=== PATIENT | female | born 1955 | race Caucasian/White ===

== ENCOUNTER → 2016-08-11 | Outpatient (CLI) | payer OTHER ==
[~2016-08-11] MED LIST: ALBU17AE23 IH; ALBU8.5H2 IH; ARIP5TAB13 PO; BUDE6HFA IH; CEFD300C PO; CEFD300C3 PO; CRS350T PO; DIAZ-345 PO; DIAZ10TA3 PO; DIAZ5TAB3 PO; DULO30CA48 PO; DULO60CA6 PO; FLUT1DIS26 INH; FOLI-88 PO; FURO40TA PO; FURO40TA4 PO; GABA-486 PO; HYDR-2890 PO; HYDR-3720 PO; HYDR1TAB86 PO; LEVA1.2516 INH; MELO-195 PO; MELOXICAM PO; MTH10T PO; NCT21TD; OXYGEN INH; POTA20TA15 PO; PRD10T PO; PRED10TA PO; TIOT18CA IH; TIOT18CA2 INH
== END ==
LOC: RAD 14:04
PROVIDERS: ATTEND Nurse Practitioner Family
DX: I73.9 Peripheral vascular disease, unspecified (principal)
CPT/HCPCS: 93923

== ENCOUNTER 2016-10-24 05:19 | Inpatient (IN) | payer OTHER ==
[~2016-10-24] VITALS: Ht 172.7 cm; Wt 81.9 kg
[2016-10-24 05:52] LABS: BASOPHILS % (AUTO) 0 % (0-10); EOSINOPHILS # (AUTO) 0.1 10^3/uL (0.0-0.3); EOSINOPHILS % (AUTO) 1 % (0-10); LYMPHOCYTES # (AUTO) 1.3 X 10^3 (1.0-4.0); LYMPHOCYTES % (AUTO) 11 % (12-44); MEAN CORPUSCULAR HEMOGLOBIN 31 PG (25-34); MEAN CORPUSCULAR HGB CONC 31 G/DL (32-36); MEAN CORPUSCULAR VOLUME 98 FL (80-99); MEAN PLATELET VOLUME 11.4 FL (7.4-10.4); MONOCYTES # (AUTO) 0.9 X 10^3 (0.0-1.0); MONOCYTES % (AUTO) 8 % (0-12); NEUTROPHILS # (AUTO) 9.9 X 10^3 (1.8-7.8); NEUTROPHILS % (AUTO) 81 % (42-75); PLATELET COUNT 138 10^3/uL (130-400); RED BLOOD COUNT 4.67 10^6/uL (4.35-5.85); RED CELL DISTRIBUTION WIDTH 13.5 % (10.0-14.5); WHITE BLOOD COUNT 12.3 10^3/uL (4.3-11.0)
--- NOTE | 2016-10-24 05:56 | ED Fall/Injury ---
General Chief Complaint: Trauma-Non Activation Stated Complaint: BACK PAIN-FALL Nursing Triage Note: patient reports fall on wednesday reports pain in lower back has progressively gotten worse Source: patient, family (spouse) Exam Limitations: no limitations History of Present Illness Time seen by provider: 05:50 Initial Comments Patient came in to the ER by private conveyance with her with a complaint of falling from standing after tripping on some one-stop blankets of the foot of her recliner when she was getting out of the chair. This occurred Wednesday approximately 3 days ago. She fell onto outstretched hands and at that time started having some left lower back pain that is not gone away. She's not presently taking anything for it. She does have COPD and is on an O2 concentrator at 4 L at home. She sees pulmonology. She is out of nebulized medicines and has 3 different MDIs which she states all her and she does not use. She feels short of breath but states this is been her baseline for a long time. She has no cough presently. She denies fevers, chills, nausea, vomiting, loss of continence of stool and bladder, saddle anesthesia, paresthesias, weakness, numbness, tingling. Allergies and Home Medications Allergies Coded Allergies: morphine (Unverified Allergy, Unknown, 01/23/16) Home Medications Albuterol Sulfate 8.5 Gm Aer.w.adap, 2 PUFF IH QID PRN for SHORTNESS OF BREATH, (Reported) Aripiprazole 5 Mg Tablet, 5 MG PO DAILY, (Reported) Diazepam 5 Mg Tablet, 10 MG PO Q6H PRN for ANXIETY, (Reported) Duloxetine HCl 30 Mg Capsule.dr, 30 MG PO DAILY, (Reported) Duloxetine Hcl 60 Mg Capsule.dr, 60 MG PO DAILY, (Reported) Folic Acid/Multivits-Min/Lut 1 Each Tab.chew, 1 TAB PO DAILY, (Reported) Furosemide 40 Mg Tablet, 40 MG PO DAILY, (Reported) Gabapentin 100 Mg Capsule, 100 MG PO DAILY, (Reported) Hydrocodone Bit/Acetaminophen 1 Each Tablet, 1 TAB PO Q4H PRN for PAIN, ( Reported) Meloxicam 15 Mg Tablet, 15 MG PO DAILY, (Reported) Potassium Chloride 20 Meq Tab.prt.sr, 40 MEQ PO DAILY, (Reported) TAKES 2 (20MEQ) TABLETS Tiotropium [place] 1 Inh Aerp, 1 PUFF INH DAILY, (Reported) Constitutional: No chills, No diaphoresis, No fever Ears, Nose, Mouth, Throat: denies nose pain, denies nose discharge Respiratory: cough, dyspnea on exertion, No hemoptysis, No orthopnea, No phlegm , short of breath, wheezing (at baseline) Cardiovascular: No edema, No Hx of Intervention, No palpitations, No syncope, No vascular heart diseas Gastrointestinal: abdominal pain, No constipation, No diarrhea, No nausea Genitourinary: No dysuria, No frequency Musculoskeletal: see HPI, back pain Past Izduzxx-Devfcs-Mrnmrz Hx Patient Social History Alcohol Use: Denies Use Recreational Drug Use: No Smoking Status: Current Everyday Smoker Type Used: Cigarettes Recent Foreign Travel: No Contact w/Someone Who Travel: No Recent Infectious Disease Expo: No Recent Hopitalizations: No Immunizations Up To Date Date of Pneumonia Vaccine: Dec 16, 2011 Date of Influenza Vaccine: Feb 14, 2013 Seasonal Allergies Seasonal Allergies: No Surgeries HX Surgeries: Yes (C-SPINE SURGERY 2006, BACK SURGERY, RIGHT ANKLE SURGERY) Surgeries: Orthopedic Respiratory Hx Respiratory Disorders: Yes Respiratory Disorders: Pneumonia, Chronic Bronchitis, COPD Cardiovascular Hx Cardiac Disorders: No Neurological Hx Neurological Disorders: No Reproductive System Hx Reproductive Disorders: No [employer] History: Menopausal Genitourinary Hx Genitourinary Disorders: No Gastrointestinal Hx Gastrointestinal Disorders: No Musculoskeletal Hx Musculoskeletal Disorders: Yes (CHRONIC NECK PAIN AND RIGHT HIP PAIN ) Musculoskeletal Disorders: Chronic Back Pain Endocrine Hx Endocrine Disorders: No HEENT HX ENT Disorders: No Cancer Hx Cancer: No Psychosocial Hx Psychiatric Problems: Yes Behavioral Health Disorders: Anxiety Integumentary HX Skin/Integumentary Disorder: No Blood Transfusions Hx Blood Disorders: No Adverse Reaction to a Blood Tr: No Family Medical History Family Medial History: Breas 19 MOTHER Congenital heart disease 19 FATHER 19 MOTHER Hypertension 19 FATHER 19 MOTHER Myocardial infarction 19 MOTHER Prostate cancer 19 FATHER Physical Exam Vital Signs Vital Sign - Last 12Hours 10/24/16 05:35 Temp 97.9 Pulse 97 Resp 26 B/P (MAP) 150/84 Pulse Ox 63 O2 Delivery Room Air O2 Flow Rate 5.00 Capillary Refill : Less Than 3 Seconds General Appearance: WD/WN, no apparent distress HEENT: PERRL/EOMI, normal ENT inspection, pharynx normal Neck: supple, normal inspection Cardiovascular: normal peripheral pulses, regular rate, rhythm, no edema, no JVD Respiratory: chest non-tender, no respiratory distress, no accessory muscle use , decreased breath sounds, wheezing (prolonged expiratory.) Peripheral Pulses: 3+ Dorsalis Pedis (R), 3+ Left Dors-Pedis (L) Gastrointestinal: normal bowel sounds, soft, no organomegaly, distended (mildly ), tenderness (diffusely) Back: normal inspection, other (midline lumbar tenderness as well as left paraspinous lumbar muscles) Extremities: normal range of motion, non-tender, normal inspection, no pedal edema, no calf tenderness Neurologic/Psychiatric: alert, oriented x 3 Skin: normal color, warm/dry Laceration Repair : Suture Size: 5-0 Progress/Results/Core Measures Results/Orders Lab Results Laboratory Tests Test 10/24/16 05:40 10/24/16 07:40 10/24/16 08:49 Range/Units White Blood Count 12.3 H 4.3-11.0 10^3/uL Red Blood Count 4.67 4.35-5.85 10^6/uL Hemoglobin 14.3 11.5-16.0 G/DL Hematocrit 46 35-52 % Mean Corpuscular Volume 98 80-99 FL Mean Corpuscular Hemoglobin 31 25-34 PG Mean Corpuscular Hemoglobin Concent 31 L 32-36 G/DL Red Cell Distribution Width 13.5 10.0-14.5 % Platelet Count 138 130-400 10^3/uL Mean Platelet Volume 11.4 H 7.4-10.4 FL Neutrophils (%) (Auto) 81 H 42-75 % Lymphocytes (%) (Auto) 11 L 12-44 % Monocytes (%) (Auto) 8 0-12 % Eosinophils (%) (Auto) 1 0-10 % Basophils (%) (Auto) 0 0-10 % Neutrophils # (Auto) 9.9 H 1.8-7.8 X 10^3 Lymphocytes # (Auto) 1.3 1.0-4.0 X 10^3 Monocytes # (Auto) 0.9 0.0-1.0 X 10^3 Eosinophils # (Auto) 0.1 0.0-0.3 10^3/uL Basophils # (Auto) 0.0 0.0-0.1 10^3/uL Sodium Level 142 135-145 MMOL/L Potassium Level 4.3 3.6-5.0 MMOL/L Chloride Level 97 L 98-107 MMOL/L Carbon Dioxide Level 34 H 21-32 MMOL/L Anion Gap 11 5-14 MMOL/L Blood Urea Nitrogen 15 7-18 MG/DL Creatinine 0.63 0.60-1.30 MG/DL Estimat Glomerular Filtration Rate > 60 BUN/Creatinine Ratio 24 Glucose Level 128 H 70-105 MG/DL Calcium Level 10.1 8.5-10.1 MG/DL Magnesium Level 2.0 1.8-2.4 MG/DL Total Bilirubin 0.5 0.1-1.0 MG/DL Aspartate Amino Transf (AST/SGOT) 17 5-34 U/L Alanine Aminotransferase (ALT/SGPT) 19 0-55 U/L Alkaline Phosphatase 71 40-136 U/L Troponin I < 0.30 <0.30 NG/ML C-Reactive Protein High Sensitivity 15.38 H 0.00-0.50 MG/DL B-Type Natriuretic Peptide 84.1 <100.0 PG/ML Total Protein 7.4 6.4-8.2 G/DL Albumin 4.6 H 3.2-4.5 G/DL Prothrombin Time 12.5 12.2-14.7 SEC INR Comment 1.0 0.8-1.4 Activated Partial Thromboplast Time 29 24-35 SEC Lactic Acid Level 0.92 0.50-2.00 MMOL/L Urine Color YELLOW Urine Clarity CLEAR Urine pH 6 5-9 Urine Specific [place] 1.020 1.016-1.022 Urine Protein 2+ H NEGATIVE Urine Glucose (UA) NEGATIVE NEGATIVE Urine Ketones 3+ H NEGATIVE Urine Nitrite NEGATIVE NEGATIVE Urine Bilirubin NEGATIVE NEGATIVE Urine Urobilinogen 1 NORMAL MG/DL Urine Leukocyte Esterase 2+ H NEGATIVE Urine RBC (Auto) 1+ H NEGATIVE Urine RBC 2-5 H /HPF Urine WBC 5-10 H /HPF Urine Squamous Epithelial Cells 5-10 /HPF Urine Crystals NONE /LPF Urine Bacteria FEW H /HPF Urine Casts NONE /LPF Urine Mucus SMALL H /LPF Urine Culture Indicated YES My Orders Orders - HELEN BONDS Lumbar Spine - 2-3 Views (10/24/16 05:57) Lactic Acid Analyzer (10/24/16 06:59) Blood Culture (10/24/16 06:59) Sputum Culture (10/24/16 06:59) Ua Culture If Indicated (10/24/16 06:59) Protime With Inr (10/24/16 06:59) Partial Thromboplastin Time (10/24/16 06:59) Saline Lock/Iv-Start (10/24/16 06:59) Vital Signs Adult Sepsis Patie Q1HR (10/24/16 06:59) Remove Rings In Anticipation O (10/24/16 06:59) Ceftriaxone Injection (Rocephin Injectio (10/24/16 07:15) Ns Iv 1000 Ml (Sodium Chloride 0.9%) (10/24/16 07:15) Albuterol/Ipra Inhalation Soln (Duoneb I (10/24/16 07:15) Svn Sm Volume Nebulizer Rt-Rfs (10/24/16 07:08) Fentanyl Injection (Sublimaze Injection (10/24/16 08:00) Fentanyl Injection (Sublimaze Injection (10/24/16 07:54) Fentanyl Injection (Sublimaze Injection (10/24/16 09:15) Urine Culture (10/24/16 08:49) Medications Given in ED Current Medications Medications Dose Ordered Sig/Denise Route Start Time Stop Time Status Last Admin Dose Admin Albuterol/ Ipratropium 3 ml ONCE ONCE INH 10/24/16 06:00 10/24/16 06:01 DC 10/24/16 05:55 3 ML Albuterol/ Ipratropium 3 ml ONCE ONCE INH 10/24/16 07:15 10/24/16 07:16 DC 10/24/16 07:57 3 ML Ceftriaxone Sodium 1000 mg/ Sodium Chloride 50 ml @ 100 mls/hr ONCE ONCE IV 10/24/16 07:15 10/24/16 07:44 DC 10/24/16 07:55 100 MLS/HR Fentanyl Citrate 50 mcg ONCE ONCE IVP 10/24/16 08:00 10/24/16 08:04 DC 10/24/16 07:55 50 MCG Fentanyl Citrate 50 mcg ONCE ONCE IVP 10/24/16 09:15 10/24/16 09:16 DC 10/24/16 09:39 50 MCG Methylprednisolone Sodium Succinate 125 mg ONCE ONCE IVP 10/24/16 06:00 10/24/16 06:01 DC 10/24/16 05:59 125 MG Vital Signs/I&O Vital Sign - Last 12Hours 10/24/16 10/24/16 10/24/16 10/24/16 05:35 05:35 05:55 07:58 Temp 97.9 Pulse 97 Resp 26 B/P (MAP) 150/84 Pulse Ox 63 98 96 94 O2 Delivery Room Air Room Air Nasal Cannula Nasal Cannula O2 Flow Rate 5.00 5.00 3.00 Blood Pressure Mean: 106 Progress Note : Time: 06:02 Progress Note Patient presents in what appears to fairly uncontrolled COPD stating she does not really take any of her MDI/DPI medicines and is out of her nebulized medicines. She has had a fall that may been compounded by her COPD control. We' ll obtain imaging of her back and also take a look at her lung x-ray get her a DuoNeb by small-volume nebulizer. Diagnostic Imaging Diagonstic Imaging: Xray Plain Films/CT/US/NM/MRI: chest Comments small infiltrate RLL, COPD chronic NAME: MELY MOREIRA MED REC#: [id number] PHYSICIAN: MARCIANO BLANCHARD MD CC: MARCIANO BLANCHARD MD; ALLI GIL Page 1 of 1 RADIOLOGY REPORT VIA [facility], [facility]. [place], [place] CC: MARCIANO BLANCHARD MD; ALLI GIL Page 1 of 1 RADIOLOGY REPORT NAME: MELY MOREIRA MED REC#: [id number] PT STATUS: REG ER : 1955 PHYSICIAN: MARCIANO BLANCHARD MD ADMIT DATE: 10/24/16/ER Signed Date of Exam: 10/24/16 CHEST PA/LAT (2 VIEW) INDICATION: Fall with back pain, shortness of breath. Comparison made with prior examination from 02/12/15. FINDINGS: There's cardiomegaly. Mediastinum is unremarkable. Lungs are clear. There is no pleural effusion or pneumothorax. There is some minimal bibasilar atelectasis and/or pneumonitis. IMPRESSION: Cardiomegaly and some minimal bibasilar subsegmental atelectasis and/or pneumonitis. Dictated by: Dictated on workstation # [id number] Dict: 10/24/16 0823 Trans: 10/24/16 1000 Interpreted by: ALLI GIL Electronically signed by: ALLI GIL 10/24/16 1000 Reviewed: Reviewed by Me Diagonstic Imaging: Xray Plain Films/CT/US/NM/MRI: other (lumbar spine) Comments NAME: MELY MOREIRA MED REC#: [id number] PHYSICIAN: HELEN BONDS MD CC: ALLI GIL; HELEN BONDS Page 1 of 1 RADIOLOGY REPORT VIA [place], [place] CC: ALLI GIL; HELEN BONDS Page 1 of 1 RADIOLOGY REPORT NAME: MELY MOREIRA MED REC#: [id number] PT STATUS: REG ER : 1955 PHYSICIAN: HELEN BONDS MD ADMIT DATE: 10/24/16/ER Signed Date of Exam: 10/24/16 LUMBAR SPINE - 2-3 VIEWS INDICATION: Back pain after fall. 3 views were obtained. FINDINGS: There is some right convexity degenerative lumbar scoliosis. There is moderate degenerative disc disease at L4-5. There appears to be a T11 compression fracture. While the acuity of this is uncertain this is not seen on previous imaging. IMPRESSION: T11 compression fracture. This is of uncertain acuity. If there is high clinical concern this may be acute further evaluation with MRI should be considered as this would be amenable to augmentation if clinically warranted. Degenerative changes lumbar spine particularly at L4-5 Dictated by: Dictated on workstation # [id number] Dict: 10/24/16 0829 Trans: 10/24/16 1001 Interpreted by: ALLI GIL Electronically signed by: ALLI GIL 10/24/16 1001 Reviewed: Reviewed by Me Departure Communication Time/Spoke to Admitting Phy: 10:[address] Man about the case. He recommends continue her home hydrocodone as well as fentanyl 50 g IV every 2 hours as needed for aches or pain. He'll see the patient. Pneumonia Admission Pseudomonal Risk: COPD Patient allergy/sensitivity/re: None Pneumonia order set available: CAP Non ICU Notes rocephin and Depomedrol started. Low likelyhood of MDR. Impression Impression: Primary Impression: COPD exacerbation Additional Impressions: Pneumonia Qualified Codes: J18.1 - Lobar pneumonia, unspecified organism Compression fracture of body of thoracic vertebra Fall at home Qualified Codes: W19.XXXA - Unspecified fall, initial encounter; Y92.099 - Unspecified place in other non-institutional residence as the place of occurrence of the external cause Disposition: 09 ADMITTED INPATIENT Condition: Improved Decision to Admit Reason: Admit from ER (General) Decision to Admit/Date: Oct 24, 2016 Time/Decision to Admit Time: 10:17 Departure-Patient Inst. Referrals: AUGUSTUS MAN MD (PCP/Family) Primary Care Physician Copy Copies To 1: AUGUSTUS MAN MD, TITUS J Oct 24, 2016 05:56
[2016-10-24] MEDS ORDERED: RT-ALBUTEROL/IPRATROPIUM 3 ML (DUONEB) VIAL INH ONE ×3 (06:00→18:45)
[2016-10-24] MEDS ORDERED: methylPREDNISolone 125 MG (Solu-MEDROL) VIAL IVP ONE (06:00)
[2016-10-24 06:23] LABS: ALANINE AMINOTRANSFERASE 19 U/L (0-55); ALBUMIN 4.6 G/DL (3.2-4.5); ANION GAP 11 MMOL/L (5-14); ASPARTATE AMINO TRANSFERASE 17 U/L (5-34); BILIRUBIN,TOTAL 0.5 MG/DL (0.1-1.0); BLOOD UREA NITROGEN 15 MG/DL (7-18); BUN/CREATININE RATIO 24; CALCIUM 10.1 MG/DL (8.5-10.1); CARBON DIOXIDE 34 MMOL/L (21-32); CHLORIDE 97 MMOL/L (98-107); CREATININE SERUM 0.63 MG/DL (0.60-1.30); GFR ESTIMATED > 60; GLUCOSE 128 MG/DL (70-105); POTASSIUM 4.3 MMOL/L (3.6-5.0); SODIUM 142 MMOL/L (135-145); TOTAL PROTEIN 7.4 G/DL (6.4-8.2); hs C REACTIVE PROTEIN 15.38 MG/DL (0.00-0.50)
[2016-10-24 06:35] LABS: TROPONIN I < 0.30 NG/ML (<0.30)
[2016-10-24] MEDS ORDERED: cefTRIAXone INJECTION 1,000 MG in NS (IVPB) 50 ML IV ONE (07:15)
[2016-10-24] MEDS ORDERED: fentaNYL INJECTION 100 MCG/2 ML AMP ONE (07:54)
[2016-10-24] MEDS: NS IV 1000 ML 1,000 ML IV SCH ×3 (07:57→23:56)
[2016-10-24 07:58] LABS: PROTHROMBIN TIME PATIENT 12.5 SEC (12.2-14.7)
[2016-10-24] MEDS ORDERED: fentaNYL INJECTION 100 MCG/2 ML AMP IVP ONE ×4 (08:00→13:00)
--- NOTE | 2016-10-24 08:45 | Diagnostic Imaging Report ---
INDICATION: Fall with back pain, shortness of breath. Comparison made with prior examination from 02/12/15. FINDINGS: There's cardiomegaly. Mediastinum is unremarkable. Lungs are clear. There is no pleural effusion or pneumothorax. There is some minimal bibasilar atelectasis and/or pneumonitis. IMPRESSION: Cardiomegaly and some minimal bibasilar subsegmental atelectasis and/or pneumonitis. Dictated by: Dictated on workstation # [id number]
[2016-10-24 08:56] LABS: BILIRUBIN,URINE NEGATIVE (NEGATIVE); KETONES,URINE 3+ (NEGATIVE); LEUKOCYTE ESTERASE ,URINE 2+ (NEGATIVE); NITRITE,URINE NEGATIVE (NEGATIVE); PH,URINE 6 (5-9); PROTEIN,URINE 2+ (NEGATIVE); UROBILINOGEN,URINE 1 MG/DL (NORMAL)
--- NOTE | 2016-10-24 09:22 | Diagnostic Imaging Report ---
INDICATION: Back pain after fall. 3 views were obtained. FINDINGS: There is some right convexity degenerative lumbar scoliosis. There is moderate degenerative disc disease at L4-5. There appears to be a T11 compression fracture. While the acuity of this is uncertain this is not seen on previous imaging. IMPRESSION: T11 compression fracture. This is of uncertain acuity. If there is high clinical concern this may be acute further evaluation with MRI should be considered as this would be amenable to augmentation if clinically warranted. Degenerative changes lumbar spine particularly at L4-5 Dictated by: Dictated on workstation # [id number]
[2016-10-24] MEDS ORDERED: HYDROcodone/APAP 10 MG/325 MG (LORTAB) TAB PO ONE (10:30)
[2016-10-24 11:00] VITALS: BP 128/75
[2016-10-24] MEDS ORDERED: LORA1TAB PO (11:16)
[2016-10-24] MEDS ORDERED: DULoxetine 30 MG (CYMBALTA) CAP PO NR (11:51)
[2016-10-24] MEDS ORDERED: GABAPENTIN 100 MG (NEURONTIN) CAP PO NR (11:51)
[2016-10-24] MEDS: fentaNYL INJECTION 100 MCG/2 ML AMP INJ PRN ×5 (11:58→22:22)
[2016-10-24] MEDS: HYDROcodone/APAP 10 MG/325 MG (LORTAB) TAB PO SCH ×4 (12:15→23:56)
--- NOTE | 2016-10-24 13:26 | History & Physical-Hospitalist ---
HPI History of Present Illness: HPI/Chief Complaint Jesica reports ever since the fall she took this Wednesday she has had severe mid to lower back pain. It is nonradicular and worse with any position changes as well as with deep breathing. His history of COPD reports her cough is been at baseline but this aggravates her pain. She has had no purulent sputum production denies chills or fever. She was noted to be hypoxic in the emergency room although this was based on O2 saturations which at times of been rather inaccurate for this patient. She denied feeling any more shortness of breath at baseline but had been out of albuterol and had not been taking her metered-dose inhalers either. Due to pain she presented to the emergency room. At baseline she takes about 6-8 hydrocodone daily for chronic lower back pain. On x-ray evaluation she did have a T11 compression fracture which should not been noted in the past. She was subsequently admitted for pain management as well as treatment for underlying hypoxia with very questionable pneumonia. Date Seen 10/24/16 Time Seen by Provider: 11:50 Attending Physician Augustus Lechuga MD PCP Augustus Lechuga MD Referring Physician Date of Admission Oct 24, 2016 at 10:15 Home Medications & Allergies Home Medications Reviewed patient Home Medication Reconciliation Form Allergies Allergies Coded Allergies morphine (Unverified Allergy, Unknown, 01/23/16) Past Eitkinh-Elopmi-Nrvegy Hx Patient Social History Alcohol Use: Denies Use Recreational Drug Use: No Smoking Status: Current Everyday Smoker Type Used: Cigarettes Recent Foreign Travel: No Contact w/other who traveled: No Recent Hopitalizations: No Recent Infectious Disease Expo: No Immunizations Up To Date Date of Pneumonia Vaccine: Dec 16, 2011 Date of Influenza Vaccine: Feb 14, 2013 Seasonal Allergies Seasonal Allergies: No Surgeries HX Surgeries: Yes (C-SPINE SURGERY 2007, BACK SURGERY, RIGHT ANKLE SURGERY) Surgeries: Orthopedic Respiratory Hx Respiratory Disorders: Yes Cardiovascular Hx Cardiovascular Disorders: No Neurological Hx Neurological Disorders: No Reproductive System Hx Reproductive Disorders: No Genitourinary Hx Genitourinary Disorders: No Gastrointestinal Hx Gastrointestinal Disorders: No Musculoskeletal Hx Musculoskeletal Disorders: Yes (CHRONIC NECK PAIN AND RIGHT HIP PAIN ) Musculoskeletal Disorders: Chronic Back Pain Endocrine Hx Endocrine Disorders: No HEENT HX ENT Disorders: No Cancer Hx Cancer: No Psychosocial Hx Psychiatric Problems: Yes Behavioral Health Disorders: Anxiety Integumentary HX Skin/Integumentary Disorder: No Blood Transfusions Hx Blood Disorders: No Adverse Reaction to a Blood Tr: No Family Medical History Family Hx: Breas 19 MOTHER Congenital heart disease 19 FATHER 19 MOTHER Hypertension 19 FATHER 19 MOTHER Myocardial infarction 19 MOTHER Prostate cancer 19 FATHER Review of Systems Date Seen by Provider: Oct 24, 2016 Time Seen by Provider: 13:20 Constitutional: No no symptoms reported, see HPI, No chills, No diaphoresis, No dizziness, No fever, No weight gain, No weight loss Respiratory: cough (mild at baseline rare sputum has been clear), dyspnea on exertion (reportedly at baseline) Cardiovascular: no symptoms reported, No chest pain, No edema, No Hx of Intervention, No palpitations, No syncope, No vascular heart diseas Physical Exam Physical Exam Vital Signs Vital Sign - Last 12Hours 10/24/16 05:35 Temp 97.9 Pulse 97 Resp 26 B/P (MAP) 150/84 Pulse Ox 63 O2 Delivery Room Air O2 Flow Rate 5.00 Capillary Refill : Less Than 3 Seconds General Appearance: Mild Distress HEENT: PERRL/EOMI Respiratory: Chest Non Tender, Lungs Clear, Normal Breath Sounds, No Accessory Muscle Use, No Respiratory Distress Cardiovascular: Regular Rate, Rhythm, No Edema, No Gallop, No JVD, No Murmur, Normal Peripheral Pulses Gastrointestinal: Normal Bowel Sounds, No Organomegaly, No Pulsatile Mass, Non Tender, Soft Back: Other (pain to palpation over the lower thoracic spine no erythema noted no skin abnormalities noted.) Extremity: Non Tender, No Calf Tenderness, No Pedal Edema Neurologic/Psychiatric: Alert Results Results/Procedures Lab Laboratory Tests 10/24/16 05:40 Assessment/Plan Admission Diagnosis 1. Acute back pain suspected acute T11 compression fracture in a patient with known osteoporosis. We'll obtain thoracic MRI and consult orthopedics for evaluation for possible kyphoplasty candidacy. 2. Acute COPD exacerbation secondary to noncompliance with inhalers infection doubtful for now however will continue antibiotics in the form of Rocephin. We will resume bronchodilator therapy. Currently the patient is not wheezing. She did receive 1 dose of Solu-Medrol 2 hours ago too soon for it to be helpful. We'll continue aerosolized bronchodilator therapy. Copy Copies To 1: AUGUSTUS LECHUGA MD Clinical Quality Measures Pneumonia: Pseudomonal Risk: COPD AUGUSTUS LECHUGA MD Oct 24, 2016 13:26
[2016-10-24] MEDS ORDERED: RT-ALBUTEROL SULF 2.5 MG/3 ML PRE-MIX VIAL IH SCH (14:00)
[2016-10-24] MEDS ORDERED: RT-IPRATROPIUM (ATROVENT) 0.5MG/2.5ML AMP IH SCH (14:00)
[2016-10-24 15:45] VITALS: BP 134/88
[2016-10-24] MEDS: LORazepam 1 MG (ATIVAN) TAB PO SCH ×2 (18:24→23:56)
[2016-10-24] MEDS: KETOROLAC 30 MG/ML VIAL IVP PRN (18:24)
--- NOTE | 2016-10-24 18:28 | Diagnostic Imaging Report ---
INDICATION: Fell on Wednesday, injury to the spine. EXAMINATION: MRI of the thoracic spine, 10/24/2016. FINDINGS: A compression deformity of the T11 vertebral body counting from the C2 level is noted; however, no significant associated edema is seen and this is likely at least subacute to chronic in nature. Minimal retropulsion into the canal is seen without central stenosis. No cord compression appreciated. Signal change within the visualized cord is normal. The remaining levels demonstrate multilevel mild disc protrusions throughout the mid and upper thoracic spine. Postoperative change is incidentally noted in the cervical spine. Axial imaging was only obtained at the level of the fracture. Visualized intrathoracic and abdominal structures demonstrate no gross acute abnormalities. IMPRESSION: 1. Compression deformity at T11 counting from the upper cervical region; however, no significant edema is seen to suggest an acute abnormality. Correlate with timing of injury. Remaining spine is well aligned with minimal degenerative changes noted. Dictated by: Dictated on workstation # [id number]
[2016-10-24 21:00] VITALS: BP 133/73
[2016-10-24 21:45] VITALS: BP 133/73
[2016-10-24] MEDS: RT-ALBUTEROL/IPRATROPIUM 3 ML (DUONEB) VIAL INH SCH (22:10)
[2016-10-24 23:49] VITALS: BP 106/56
[2016-10-25] VITALS (7 sets, daily range): BP systolic 122–139; BP diastolic 61–72
[2016-10-25] MEDS: RT-ALBUTEROL/IPRATROPIUM 3 ML (DUONEB) VIAL INH SCH ×6 (02:09→22:21)
[2016-10-25] MEDS: fentaNYL INJECTION 100 MCG/2 ML AMP INJ PRN ×2 (02:13→11:28)
[2016-10-25] MEDS: HYDROcodone/APAP 10 MG/325 MG (LORTAB) TAB PO SCH ×6 (03:54→23:23)
[2016-10-25] MEDS: LORazepam 1 MG (ATIVAN) TAB PO SCH ×4 (05:45→23:22)
[2016-10-25 06:34] LABS: BASOPHILS % (AUTO) 0 % (0-10); EOSINOPHILS % (AUTO) 0 % (0-10); LYMPHOCYTES # (AUTO) 1.5 X 10^3 (1.0-4.0); LYMPHOCYTES % (AUTO) 16 % (12-44); MEAN CORPUSCULAR HEMOGLOBIN 30 PG (25-34); MEAN CORPUSCULAR HGB CONC 30 G/DL (32-36); MEAN CORPUSCULAR VOLUME 99 FL (80-99); MEAN PLATELET VOLUME 11.6 FL (7.4-10.4); MONOCYTES # (AUTO) 0.9 X 10^3 (0.0-1.0); MONOCYTES % (AUTO) 9 % (0-12); NEUTROPHILS # (AUTO) 6.9 X 10^3 (1.8-7.8); NEUTROPHILS % (AUTO) 74 % (42-75); PLATELET COUNT 122 10^3/uL (130-400); RED BLOOD COUNT 4.02 10^6/uL (4.35-5.85); RED CELL DISTRIBUTION WIDTH 13.6 % (10.0-14.5); WHITE BLOOD COUNT 9.3 10^3/uL (4.3-11.0)
[2016-10-25 06:40] LABS: ALANINE AMINOTRANSFERASE 13 U/L (0-55); ALBUMIN 3.7 G/DL (3.2-4.5); ANION GAP 11 MMOL/L (5-14); ASPARTATE AMINO TRANSFERASE 15 U/L (5-34); BILIRUBIN,TOTAL 0.3 MG/DL (0.1-1.0); BLOOD UREA NITROGEN 14 MG/DL (7-18); BUN/CREATININE RATIO 24; CALCIUM 9.2 MG/DL (8.5-10.1); CARBON DIOXIDE 31 MMOL/L (21-32); CHLORIDE 100 MMOL/L (98-107); CREATININE SERUM 0.59 MG/DL (0.60-1.30); GFR ESTIMATED > 60; GLUCOSE 104 MG/DL (70-105); POTASSIUM 3.8 MMOL/L (3.6-5.0); SODIUM 142 MMOL/L (135-145); TOTAL PROTEIN 6.1 G/DL (6.4-8.2)
[2016-10-25] MEDS: GABAPENTIN 100 MG (NEURONTIN) CAP PO SCH (08:06)
[2016-10-25] MEDS: DULoxetine 30 MG (CYMBALTA) CAP PO SCH ×2 (08:07→08:08)
[2016-10-25] MEDS: ARIPIPRAZOLE 10 MG (ABILIFY) TAB PO SCH (08:08)
[2016-10-25] MEDS ORDERED: ARIPIPRAZOLE 10 MG (ABILIFY) TAB PO SCH (09:00)
--- NOTE | 2016-10-25 11:09 | Consultation ---
History of Present Illness History of Present Illness Patient Consulted On(jackie/time) 10/25/16 11:04 Date of Admission Reason for Visit: T11 compression fracture History of Present Illness Jocelyn Arenas is a very pleasant 61 y/o female who we have been consulted for T11 compression fracture. She fell onto outstretched hands on Wednesday and has had persistent back pain in the thoracolumbar junction and radiation to the left flank and over the PSIS ever since. Her pain is worse with position changes and standing. She presented to the ED and x -rays and subsequent MRI showed T11 compression deformity. Unfortunately the MRI had to be aborted due to claustrophobia. She has no radiating leg pain, leg weakness, saddle anasthesia/paraesthesia or bowel or bladder dysfunction to report. She has a smoking hx and has unproductive cough currently. Allergies and Home Medications Allergies Coded Allergies: morphine (Unverified Allergy, Unknown, 01/23/16) Home Medications Albuterol Sulfate 8.5 Gm Aer.w.adap, 2 PUFF IH QID PRN for SHORTNESS OF BREATH, (Reported) Aripiprazole 5 Mg Tablet, 5 MG PO DAILY, (Reported) Duloxetine HCl 30 Mg Capsule.dr, 30 MG PO DAILY, (Reported) Duloxetine Hcl 60 Mg Capsule.dr, 60 MG PO DAILY, (Reported) Folic Acid/Multivits-Min/Lut 1 Each Tab.chew, 1 TAB PO DAILY, (Reported) Furosemide 40 Mg Tablet, 40 MG PO DAILY, (Reported) as needed for fluid Gabapentin 100 Mg Capsule, 100 MG PO DAILY, (Reported) Hydrocodone Bit/Acetaminophen 1 Each Tablet, 1 TAB PO Q4H PRN for PAIN, ( Reported) Lorazepam 1 Mg Tablet, 1 MG PO Q6H, #30 Prescribed by: DARRYL MAURICE on 10/24/16 1116 Meloxicam 15 Mg Tablet, 15 MG PO DAILY, (Reported) Potassium Chloride 20 Meq Tab.prt.sr, 40 MEQ PO DAILY, (Reported) TAKES 2 (20MEQ) TABLETS as needed ( when takes lasix ) Tiotropium [place] 1 Inh Aerp, 1 PUFF INH DAILY, (Reported) Past Kwpsucn-Afuvtg-Ndgaek Hx Patient Social History Alcohol Use: Denies Use Recreational Drug Use: No Smoking Status: Current Everyday Smoker Type Used: Cigarettes Recent Foreign Travel: No Contact w/Someone Who Travel: No Recent Infectious Disease Expo: No Recent Hopitalizations: No Physical Abuse Screen: No Sexual Abuse: No Immunizations Up To Date Date of Pneumonia Vaccine: Jul 24, 2016 Date of Influenza Vaccine: Feb 14, 2013 Seasonal Allergies Seasonal Allergies: No Surgeries HX Surgeries: Yes (C-SPINE SURGERY 2006, BACK SURGERY, RIGHT ANKLE SURGERY) Surgeries: Orthopedic Respiratory Hx Respiratory Disorders: Yes Respiratory Disorders: Pneumonia, Chronic Bronchitis, COPD Cardiovascular Hx Cardiac Disorders: No Neurological Hx Neurological Disorders: No Reproductive System Hx Reproductive Disorders: No Female Reproductive Disorders: Denies LIVESTOCK FEEDER History: Menopausal Genitourinary Hx Genitourinary Disorders: No Gastrointestinal Hx Gastrointestinal Disorders: No Musculoskeletal Hx Musculoskeletal Disorders: Yes (CHRONIC NECK PAIN AND RIGHT HIP PAIN ) Musculoskeletal Disorders: Chronic Back Pain Endocrine Hx Endocrine Disorders: No HEENT HX ENT Disorders: No Cancer Hx Cancer: No Psychosocial Hx Psychiatric Problems: Yes Behavioral Health Disorders: Anxiety Integumentary HX Skin/Integumentary Disorder: No Blood Transfusions Hx Blood Disorders: No Adverse Reaction to a Blood Tr: No Family Medical History Family Medial History: Breas 19 MOTHER Congenital heart disease 19 FATHER 19 MOTHER Hypertension 19 FATHER 19 MOTHER Myocardial infarction 19 MOTHER Prostate cancer 19 FATHER Review of Systems-General Time Seen by Provider: 10:50 Constitutional: no symptoms reported EENTM: no symptoms reported Respiratory: cough Cardiovascular: no symptoms reported Gastrointestinal: No abdominal pain Musculoskeletal: back pain Skin: no symptoms reported Psychiatric/Neurological: Denies Numbness, Denies Paresthesia Physical Exam-General Problems Physical Exam Vital Signs Vital Sign - Last 12Hours 10/24/16 05:35 Temp 97.9 Pulse 97 Resp 26 B/P (MAP) 150/84 Pulse Ox 63 O2 Delivery Room Air O2 Flow Rate 5.00 Capillary Refill : Less Than 3 Seconds General Appearance: WD/WN, mild distress Neck: normal inspection Respiratory: no respiratory distress, no accessory muscle use, rhonchi Cardiovascular: no edema Peripheral Pulses: 2+ Dorsalis Pedis (R), 2+ Left Dors-Pedis (L) Rectal: deferred Back: normal inspection, muscle spasm, other (midline tenderness to the thoracolumbar junction) Extremities: non-tender, normal inspection, no pedal edema, no calf tenderness Reflexes: 2+ Knee (R), 2+ Knee (L), 2+ Ankle (R), 2+ Ankle (L) Skin: normal color, warm/dry Assessment/Plan Assessment/Plan Admission Diagnosis/Plan Assessment: T11 compression deformity back pain Osteoporosis Tobacco abuse PLAN: Repeat T-MRI to include T1 and Stir sequences first thing AM NPO after midnight planning T11 kyphoplasty tomorrow pain control IS at bedside and encouraged SCD for DVT prophylaxis Clinical Quality Measures DVT/VTE Risk/Contraindication: Risk Factor Score Per Nursin RFS Level Per Nursing on Admit: 4+=Very High Pneumonia: Pseudomonal Risk: COPD MARCIANO PFEIFFER Oct 25, 2016 11:09
[2016-10-25] MEDS ORDERED: DIAZEPAM 5 MG (VALIUM) TABLET PO NR (11:29)
--- NOTE | 2016-10-25 12:41 | Diagnostic Imaging Report ---
INDICATION: Pneumonia with shortness of breath. PA and lateral views of chest were obtained. Comparison made with prior examination 10/24/16. FINDINGS: There is increasing right basilar atelectasis and/or pneumonitis. There is cardiomegaly. There is minimal venous congestion. There is no pleural effusion or pneumothorax. Mediastinum is unremarkable. IMPRESSION: Increasing right basilar atelectasis and/or pneumonitis. Cardiomegaly and mild central pulmonary venous congestion. Dictated by: Dictated on workstation # [id number]
[2016-10-25] MEDS ORDERED: predniSONE 20 MG TAB PO NR (16:36)
[2016-10-25] MEDS: cefTRIAXone INJECTION 1,000 MG in NS (IVPB) 50 ML IV SCH (16:49)
[2016-10-25] MEDS: KETOROLAC 30 MG/ML VIAL IVP PRN (19:45)
[2016-10-26] VITALS (8 sets, daily range): BP systolic 113–169; BP diastolic 59–84
[2016-10-26] MEDS: RT-ALBUTEROL/IPRATROPIUM 3 ML (DUONEB) VIAL INH SCH ×6 (02:25→22:18)
[2016-10-26] MEDS: HYDROcodone/APAP 10 MG/325 MG (LORTAB) TAB PO SCH ×6 (03:55→23:06)
--- NOTE | 2016-10-26 06:53 | Progress Note (SOAP) ---
Subjective Time Seen by Provider: 06:48 Subjective/Events-last exam Patient states that she continues to experience lower thoracic and left flank pain She did experience a fall 5 days ago, and developed pain shortly afterwards She had a incomplete Thoracic MRI, which was aborted due to claustrophobia. T1 and STIR images were not performed T2 series revealed a T11 compression deformity, but bone edema was not revealed in this study. Patient did not have a compression fracture on Chest CT scan performed in July, Review of Systems General: No Chills Pulmonary: No Pleuritic Chest Pain Musculoskeletal: back pain, No: leg pain Neurological: No: Numbness, Weakness Objective Exam Vital Signs Date Time Temp Pulse Resp B/P (MAP) Pulse Ox O2 Delivery O2 Flow Rate FiO2 10/26/16 04:00 98.9 86 20 130/68 97 Nasal Cannula 4.00 10/26/16 02:26 92 Nasal Cannula 4.00 10/25/16 23:58 98.4 90 20 132/70 98 Nasal Cannula 4.00 10/25/16 22:21 91 Nasal Cannula 4.00 10/25/16 21:10 Nasal Cannula 4.00 10/25/16 19:35 98.3 89 20 139/72 97 Nasal Cannula 4.00 10/25/16 18:43 90 Nasal Cannula 4.00 10/25/16 15:30 98.5 94 18 131/70 93 Nasal Cannula 4.00 10/25/16 14:54 93 Nasal Cannula 4.00 10/25/16 12:00 98.0 82 20 125/63 93 Nasal Cannula 4.00 10/25/16 11:33 92 Nasal Cannula 4.00 10/25/16 09:00 Nasal Cannula 4.00 10/25/16 08:00 97.9 89 20 125/62 96 Nasal Cannula 4.00 I & O 10/26/16 06:59 Intake Total 2870 ml Balance 2870 ml Capillary Refill : Less Than 3 Seconds General Appearance: No Apparent Distress Respiratory: No Accessory Muscle Use, No Respiratory Distress Gastrointestinal: non tender, soft Extremity: Non Tender, No Calf Tenderness, Other (Pain over the T11 spinous process ) Neurologic/Psychiatric: Alert, Oriented x3, Normal Mood/Affect, procurement assistant II-XII Norm as Tested Skin: Normal Color, Warm/Dry Results Lab Microbiology 10/24/16 Blood Culture - Preliminary, Resulted No growth 10/24/16 Gram Stain - Final, Resulted 10/24/16 Sputum Culture - Preliminary, Resulted Moraxella Catarrhalis See Comments 10/24/16 Urine Culture - Preliminary, Resulted Assessment/Plan Assessment/Plan Assess & Plan/Chief Complaint T11 compression fracture, age indeterminant Repeat Thoracic MRI this morning, Start with STIR series Valium prior to study Remain NPO, for possible T11 Kyphoplasty with biopsy, later today Clinical Quality Measures DVT/VTE Risk/Contraindication: Risk Factor Score Per Nursin RFS Level Per Nursing on Admit: 4+=Very High Pneumonia: Pseudomonal Risk: COPD STACY ATKINSON Oct 26, 2016 06:53
[2016-10-26] MEDS ORDERED: DIAZEPAM 5 MG (VALIUM) TABLET PO NR ×2 (07:00)
[2016-10-26] MEDS: predniSONE 20 MG TAB PO SCH (07:14)
--- NOTE | 2016-10-26 07:20 | Progress Note-Hospitalist ---
Subjective HPI/CC On Admission Date Seen by Provider: Oct 26, 2016 Time Seen by Provider: 08:00 Jesica reports ever since the fall she took this Wednesday she has had severe mid to lower back pain. It is nonradicular and worse with any position changes as well as with deep breathing. His history of COPD reports her cough is been at baseline but this aggravates her pain. She has had no purulent sputum production denies chills or fever. She was noted to be hypoxic in the emergency room although this was based on O2 saturations which at times of been rather inaccurate for this patient. She denied feeling any more shortness of breath at baseline but had been out of albuterol and had not been taking her metered-dose inhalers either. Due to pain she presented to the emergency room. At baseline she takes about 6-8 hydrocodone daily for chronic lower back pain. On x-ray evaluation she did have a T11 compression fracture which should not been noted in the past. She was subsequently admitted for pain management as well as treatment for underlying hypoxia with very questionable pneumonia. Subjective/Events-last exam patient alert this morning voicing only back pain. Mild cough is been productive of clear sputum only. She denies chest pain. She does have lower thoracic back pain when she coughs. She was able to sleep and denies shortness of breath. She is asking if she'll be only discharged after kyphoplasty scheduled later today. Objective Exam Vital Signs Vital Sign - Last 12Hours 10/24/16 05:35 Temp 97.9 Pulse 97 Resp 26 B/P (MAP) 150/84 Pulse Ox 63 O2 Delivery Room Air O2 Flow Rate 5.00 Capillary Refill : Less Than 3 Seconds General Appearance: No Apparent Distress Respiratory: Chest Non Tender, Lungs Clear, No Accessory Muscle Use, No Respiratory Distress, Other (him diminishment of breath sounds in the right base. Rhonchi scattered are noted but much less prominent than yesterday. No wheezing.) Cardiovascular: Regular Rate, Rhythm, No Edema, No Gallop, No JVD, No Murmur, Normal Peripheral Pulses Assessment/Plan Assessment and Plan Assess & Plan/Chief Complaint 1. Repeat MRI accomplished today consistent with a clinical picture of an acute T11 compression fracture. Patient does have a history of osteoporosis so is likely pathologic secondary to this. She is medically stable at this time to proceed with kyphoplasty scheduled for later today. 2. Acute Moraxella bronchitis versus early pneumonia. Treatment being hampered due to splinting respirations from her compression fracture. The potential benefits of kyphoplasty far outweigh risks in regards to successful treatment of acute bronchitis versus early pneumonia. Advise proceeding with kyphoplasty provided vital signs remain stable. AUGUSTUS LECHUGA MD Oct 26, 2016 07:20
--- NOTE | 2016-10-26 08:58 | Diagnostic Imaging Report ---
Multiplanar multisequence MRI of the thoracic spine performed without intravenous contrast/limited study. INDICATION: Compression fracture of T11. COMPARISON: 10/24/2016, exam. FINDINGS: T1 and STIR sagittal images are performed. There is a 70% compression fracture of T11 vertebral body. There is a normal alignment with no retropulsion fragment into the spinal canal. There is associated bone marrow edema suggestive of an acute or subacute component. There is suggestion of a pre-existing Schmorl node or depression of the inferior endplate of this vertebral body presumably related to an old trauma. There is no significant bone marrow edema in the posterior elements of this vertebral level. At T10, however, there is bone marrow edema in the posterior elements on the right side only. No fracture line is appreciated. The rest of the vertebral bodies demonstrate normal height and signal. There is mild disc herniation in the T2-T3 level with no spinal canal or foraminal stenosis. Otherwise no significant disc herniation is seen at any level. The spinal cord has normal caliber, contour, and signal. No high-grade stenosis at any level. IMPRESSION: Acute/ subacute compression fracture of T11 vertebral body with approximately 70% height loss. Dictated by: Dictated on workstation # [id number]
[2016-10-26] MEDS: DULoxetine 30 MG (CYMBALTA) CAP PO SCH ×2 (08:59)
[2016-10-26] MEDS: ARIPIPRAZOLE 10 MG (ABILIFY) TAB PO SCH (08:59)
[2016-10-26] MEDS: GABAPENTIN 100 MG (NEURONTIN) CAP PO SCH (09:00)
[2016-10-26] MEDS ORDERED: GABA-486 PO (09:51)
[2016-10-26] MEDS ORDERED: POTA20TA15 PO (09:51)
[2016-10-26] MEDS ORDERED: DULO60CA58 PO (09:51)
[2016-10-26] MEDS ORDERED: FURO40TA4 PO (09:51)
[2016-10-26] MEDS ORDERED: ARIP5TAB20 PO (09:51)
[2016-10-26] MEDS ORDERED: MELO15TA39 PO (09:51)
[2016-10-26] MEDS: fentaNYL INJECTION 100 MCG/2 ML AMP INJ PRN ×2 (09:57→20:14)
[2016-10-26] MEDS ORDERED: LORA1TAB PO (11:14)
[2016-10-26] MEDS ORDERED: LIDOCAINE PF 2% 5 ML (XYLOCAINE) VIAL ONE (11:15)
[2016-10-26] MEDS ORDERED: proPOfol 200 MG/20 ML (DIPRIVAN) VIAL IV ONE (11:15)
[2016-10-26] MEDS ORDERED: ROCURONIUM 50 MG/5 ML (ZEMURON) VIAL IV ONE (11:15)
[2016-10-26] MEDS ORDERED: LACTATED RINGERS 1,000 ML IV ONE (11:15)
[2016-10-26] MEDS ORDERED: SEVOFLURANE (ULTANE) 15 ML INHAL SOLN ONE (11:15)
[2016-10-26] MEDS ORDERED: ONDANSETRON 4 MG/2 ML (SDV) Z0FRAN ONE (11:15)
[2016-10-26] MEDS ORDERED: DEXAMETHASONE PF 10 MG/ML (DECADRON) VIAL ONE (11:15)
[2016-10-26] MEDS ORDERED: MIDAZOLAM 2 MG/2 ML (VERSED) VIAL ONE (11:16)
[2016-10-26] MEDS ORDERED: fentaNYL INJECTION 100 MCG/2 ML AMP ONE (11:16)
[2016-10-26] MEDS ORDERED: BUP/EPI 0.5% 1:200,000 (SENSORCAINE) 30 ML VIAL ONE (11:38)
--- NOTE | 2016-10-26 11:53 | Progress Note-Pre Operative ---
Pre-Operative Progress Note H&P Reviewed The H&P was reviewed, patient examined and no changes noted. Time Seen by Provider: 11:53 Date H&P Reviewed: Oct 26, 2016 Time H&P Reviewed: 11:53 Pre-Operative Diagnosis: T11 Compression Fracture KIKI GARIBAY MD Oct 26, 2016 11:53 am
[2016-10-26] MEDS: LORazepam 1 MG (ATIVAN) TAB PO SCH ×3 (12:30→23:06)
[2016-10-26] MEDS ORDERED: GLYCOPYRROLATE 0.2 MG/ML (ROBINUL) 2 ML VIAL ONE (12:35)
[2016-10-26] MEDS ORDERED: NEOSTIGMINE (BLOXIVERZ ) 1 MG/1ML 10 ML VIAL ONE (12:35)
--- NOTE | 2016-10-26 12:42 | Progress Note-Post Operative ---
Post-Operative Progess Note Surgeon (s)/Pattern Cutter (s) Surgeon KIKI GARIBAY MD Pattern Cutter: Ahsan Lagos, VANE Pre-Operative Diagnosis T11 Compression Fracture Post-Operative Diagnosis Same, Path Pending Procedure & Operative Findings Date of Procedure 10/26/16 Procedure Performed/Findings T11 Kyphoplasty Anesthesia Type GETA Estimated Blood Loss Estimated blood loss (mL): min Specimens/Packing Specimens Removed T11 Biopsy KIKI GARIBAY MD Oct 26, 2016 12:42 pm
[2016-10-26] MEDS ORDERED: ONDANSETRON 4 MG/2 ML (SDV) Z0FRAN IVP PRN (13:15)
[2016-10-26] MEDS ORDERED: fentaNYL INJECTION 100 MCG/2 ML AMP IVP PRN (13:15)
[2016-10-26] MEDS ORDERED: POLYETHYLENE GLYCOL 17 GM (MIRALAX) PACK PO NR ×2 (13:15→21:00)
--- NOTE | 2016-10-26 13:37 | Diagnostic Imaging Report ---
EXAMINATION: Intraoperative views of the thoracic spine. INDICATION: T11 compression fracture. Kyphoplasty performed by Dr. Perea. Fluoroscopy time provided is 53 seconds. IMPRESSION: Provided images demonstrate kyphoplasty changes with good position of the cement in T11 level. Dictated by: Dictated on workstation # [id number]
[2016-10-26] MEDS: NICOTINE 21 MG (NICODERM) PATCH TD SCH (14:06)
[2016-10-26] MEDS: cefTRIAXone INJECTION 1,000 MG in NS (IVPB) 50 ML IV SCH (16:56)
--- NOTE | 2016-10-26 23:32 | OPERATIVE REPORT ---
DATE OF SERVICE: PREOPERATIVE DIAGNOSIS: T11 osteoporotic pathologic compression fracture with severe pain. POSTOPERATIVE DIAGNOSIS: T11 osteoporotic pathologic compression fracture with severe pain. PROCEDURE PERFORMED: T11 kyphoplasty, biopsy with fluoroscopy. DATE AND TIME OF SURGERY: Please see anesthesia record. SURGEON: Dr. Shiv Perea. ELEVATOR ADJUSTER: AVI Mcmullen. ROLE OF BOBBIN PAINTER: Aid in retraction of the procedure, bilateral balloon insufflation with methylmethacrylate insertion. ANESTHESIA: General endotracheal. ESTIMATED BLOOD LOSS: Minimal. INTRAVENOUS FLUIDS: Please see anesthesia record. ANTIBIOTICS: Ancef. COMPLICATIONS: None. INDICATION FOR PROCEDURE: The patient is a 61-year-old female, admitted to the hospital with severe back pain, noted to have a progressive T11 compression deformity, desires operative treatment. DESCRIPTION OF PROCEDURE: The patient was taken to preoperative holding area, brought back to operative suite after adequate induction of general anesthetic. Preoperative antibiotics were given, turned prone on the Fuad table, care with padding to all extremities, sterilely prepped and draped posterior thoracic and lumbar spine. Fluoroscopy was brought in. Localization at the T11 level was performed. Working cannulas were placed. Vertebral bodies were drilled, biopsied. Cavity creation was performed with a balloon tamp and then methylmethacrylate was inserted with good fill achieved. Cement was allowed to harden, cannulas removed. Wounds were closed, and the patient was transferred to recovery room in stable condition having tolerated the procedure well. Job ID: [id number] DocumentID: [id number] Dictated Date: 10/26/2016 12:41:03 Tankage Grinder Date: 10/26/2016 23:31:53 Dictated By: SHIV PEREA MD
[2016-10-27] MEDS: RT-ALBUTEROL/IPRATROPIUM 3 ML (DUONEB) VIAL INH SCH ×6 (02:28→22:18)
[2016-10-27] MEDS: HYDROcodone/APAP 10 MG/325 MG (LORTAB) TAB PO SCH ×6 (03:14→23:48)
[2016-10-27 03:30] VITALS: BP 133/69
[2016-10-27] MEDS: LORazepam 1 MG (ATIVAN) TAB PO SCH ×4 (06:06→23:48)
[2016-10-27] MEDS: predniSONE 20 MG TAB PO SCH (06:06)
--- NOTE | 2016-10-27 06:53 | Progress Note (SOAP) ---
Subjective Time Seen by Provider: 06:50 Subjective/Events-last exam POD #1, s/p Tll kyphoplasty with biopsy Patient states that her back pain has significantly improved No complaints at this time. Review of Systems General: No Chills Musculoskeletal: No: back pain, leg pain Neurological: No: Weakness Objective Exam Vital Signs Date Time Temp Pulse Resp B/P (MAP) Pulse Ox O2 Delivery O2 Flow Rate FiO2 10/27/16 06:40 94 Nasal Cannula 4.00 10/27/16 03:30 97.4 84 20 133/69 97 Nasal Cannula 3.50 10/27/16 02:29 93 Nasal Cannula 4.00 10/26/16 23:50 96.0 84 18 113/59 97 Nasal Cannula 4.00 10/26/16 22:18 96 Nasal Cannula 4.00 10/26/16 21:00 Nasal Cannula 4.00 10/26/16 19:52 97.1 103 20 125/59 92 Nasal Cannula 4.00 10/26/16 19:03 92 Nasal Cannula 4.00 10/26/16 15:48 89 Nasal Cannula 4.00 10/26/16 15:33 97.0 98 20 124/60 94 Nasal Cannula 4.00 10/26/16 13:50 98.0 97 18 121/71 98 Nasal Cannula 4.00 10/26/16 11:32 98.9 92 18 154/84 92 Nasal Cannula 3.50 10/26/16 11:14 88 Nasal Cannula 4.00 10/26/16 09:00 Nasal Cannula 4.00 10/26/16 08:00 98.2 77 16 132/82 95 Nasal Cannula 4.00 I & O 10/27/16 07:00 Intake Total 1060 ml Balance 1060 ml Capillary Refill : Less Than 3 Seconds General Appearance: No Apparent Distress, WD/WN Respiratory: No Accessory Muscle Use, No Respiratory Distress Gastrointestinal: soft Extremity: Normal Capillary Refill, Normal Range of Motion, Non Tender, No Calf Tenderness Neurologic/Psychiatric: Alert, Oriented x3, No Motor/Sensory Deficits, dishing machine operator II- XII Norm as Tested Skin: Normal Color, Warm/Dry, Other (Dressing CDI) Results Lab Microbiology 10/24/16 Blood Culture - Preliminary, Resulted No growth 10/24/16 Gram Stain - Final, Complete 10/24/16 Sputum Culture - Final, Complete Moraxella Catarrhalis 10/24/16 Urine Culture - Final, Complete Presumptive [place] Albicans Assessment/Plan Assessment/Plan Assess & Plan/Chief Complaint T11 compression fracture, s/p kyphoplasty Osteoporosis RLL Pneumonia Patient is stable from a spine stance. I will defer discharge at this time to Dr. Man, who is treating her Pneumonia Follow up with Dr. Perea in 2 weeks May shower, but cannot submerge the incisions Clinical Quality Measures DVT/VTE Risk/Contraindication: Risk Factor Score Per Nursin RFS Level Per Nursing on Admit: 4+=Very High Pneumonia: Pseudomonal Risk: COPD STACY ATKINSON Oct 27, 2016 06:53
[2016-10-27 08:00] VITALS: BP 124/81
[2016-10-27] MEDS: DULoxetine 30 MG (CYMBALTA) CAP PO SCH ×2 (08:34)
[2016-10-27] MEDS: GABAPENTIN 100 MG (NEURONTIN) CAP PO SCH (08:34)
[2016-10-27] MEDS: NICOTINE 21 MG (NICODERM) PATCH TD SCH (08:35)
[2016-10-27] MEDS: NICOTINE PATCH REMOVAL TP SCH (08:35)
[2016-10-27] MEDS: ARIPIPRAZOLE 10 MG (ABILIFY) TAB PO SCH (08:35)
[2016-10-27] MEDS ORDERED: POLYETHYLENE GLYCOL 17 GM (MIRALAX) PACK PO NR (09:15)
[2016-10-27] MEDS ORDERED: SENNA W/DOCUSATE (SENOKOT S) TABLET PO NR (09:15)
--- NOTE | 2016-10-27 09:28 | Anesthesia-General Post-Op ---
General Patient Condition Mental Status/LOC: Same as Preop Cardiovascular: Satisfactory Nausea/Vomiting: Absent Respiratory: Satisfactory Pain: Controlled Complications: Absent Post Op Complications Complications None Follow Up Care/Instructions Patient Instructions None needed. Anesthesia/Patient Condition Patient Condition Patient is doing well, no complaints, stable vital signs, no apparent adverse anesthesia problems. No complications reported per nursing. GENNY MCCAIN CRNA Oct 27, 2016 09:28
--- NOTE | 2016-10-27 10:37 | Progress Note-Hospitalist ---
Subjective HPI/CC On Admission Time Seen by Provider: 08:30 Jesica reports ever since the fall she took this Wednesday she has had severe mid to lower back pain. It is nonradicular and worse with any position changes as well as with deep breathing. His history of COPD reports her cough is been at baseline but this aggravates her pain. She has had no purulent sputum production denies chills or fever. She was noted to be hypoxic in the emergency room although this was based on O2 saturations which at times of been rather inaccurate for this patient. She denied feeling any more shortness of breath at baseline but had been out of albuterol and had not been taking her metered-dose inhalers either. Due to pain she presented to the emergency room. At baseline she takes about 6-8 hydrocodone daily for chronic lower back pain. On x-ray evaluation she did have a T11 compression fracture which should not been noted in the past. She was subsequently admitted for pain management as well as treatment for underlying hypoxia with very questionable pneumonia. Subjective/Events-last exam Jesica reports less pleuritic pain and there is less back pain with movement following kyphoplasty. She still notes discomfort and is not walking the halls yet. She has been did the chair and back for meals. She continues to have a loose cough that she reports is been nonproductive. She denies chills or fever. She's not had a bowel movement since the eighth per her report she is feeling distended. She denies abdominal pain and denies chest pain. Objective Exam Vital Signs Vital Sign - Last 12Hours 10/24/16 05:35 Temp 97.9 Pulse 97 Resp 26 B/P (MAP) 150/84 Pulse Ox 63 O2 Delivery Room Air O2 Flow Rate 5.00 Capillary Refill : Less Than 3 Seconds General Appearance: Chronically ill, Mild Distress Respiratory: Chest Non Tender, No Accessory Muscle Use, No Respiratory Distress , Other (A slur rales and rhonchi are noted worse on the right no wheezing is appreciated.) Cardiovascular: Regular Rate, Rhythm, No Edema, No Gallop, No JVD, No Murmur, Normal Peripheral Pulses Gastrointestinal: Normal Bowel Sounds, No Organomegaly, No Pulsatile Mass, Non Tender, Soft, Distended Assessment/Plan Assessment and Plan Assess & Plan/Chief Complaint 1. Day 1 status post kyphoplasty of T11. The patient is still having significant back pain although improved. She has a history of chronic low back pain I suspect she still having discomfort as she does also likely have a contusion versus a very small compression fracture of T10. Patient was encouraged that she was going to need to walk today and the importance of using incentive spirometry. RT will be back to instruct her if she is apparently did have some difficulty with appropriate utilization per nursing staff.. 2. Acute Moraxella had a urinalysis right lower lobe pneumonia pneumonia. Will benefit for at least another day of antibiotics especially in light of the fact that she will likely resume smoking despite discussion of her need to quit especially in light of O2 dependent COPD. After discussion she is agreeable to another 24 hours of hospitalization. 3. Constipation a dose of Senokot S and MiraLAX will be administered now and another dose of MiraLAX tonight. AUGUSTUS LECHUGA MD Oct 27, 2016 10:37
[2016-10-27 15:44] VITALS: BP 115/69
[2016-10-27] MEDS: cefTRIAXone INJECTION 1,000 MG in NS (IVPB) 50 ML IV SCH (17:11)
[2016-10-27] MEDS ORDERED: POLYETHYLENE GLYCOL 17 GM (MIRALAX) PACK PO SCH (21:00)
[2016-10-28] VITALS: BP 123/60
[2016-10-28] MEDS: HYDROcodone/APAP 10 MG/325 MG (LORTAB) TAB PO SCH ×2 (04:14→08:13)
[2016-10-28] MEDS: predniSONE 20 MG TAB PO SCH (06:02)
[2016-10-28] MEDS: LORazepam 1 MG (ATIVAN) TAB PO SCH (06:02)
[2016-10-28 07:23] VITALS: BP 133/71
[2016-10-28] MEDS: RT-ALBUTEROL/IPRATROPIUM 3 ML (DUONEB) VIAL INH SCH (07:31)
[2016-10-28] MEDS: NICOTINE 21 MG (NICODERM) PATCH TD SCH (08:13)
[2016-10-28] MEDS: DULoxetine 30 MG (CYMBALTA) CAP PO SCH ×2 (08:14)
[2016-10-28] MEDS: ARIPIPRAZOLE 10 MG (ABILIFY) TAB PO SCH (08:14)
[2016-10-28] MEDS: GABAPENTIN 100 MG (NEURONTIN) CAP PO SCH (08:14)
[2016-10-28] MEDS: NICOTINE PATCH REMOVAL TP SCH (08:15)
[2016-10-28] MEDS ORDERED: CEFD300C3 PO (08:20)
[2016-10-28] MEDS ORDERED: ALEN70TA47 PO (08:21)
--- NOTE | 2016-10-28 08:24 | Discharge Summary-Hospitalist ---
Diagnosis/Chief Complaint Date of Admission Oct 24, 2016 at 10:15 Date of Discharge Discharge Date: Oct 28, 2016 Admission Diagnosis 1. Acute back pain suspected acute T11 compression fracture in a patient with known osteoporosis. We'll obtain thoracic MRI and consult orthopedics for evaluation for possible kyphoplasty candidacy. 2. Acute COPD exacerbation secondary to noncompliance with inhalers infection doubtful for now however will continue antibiotics in the form of Rocephin. We will resume bronchodilator therapy. Currently the patient is not wheezing. She did receive 1 dose of Solu-Medrol 2 hours ago too soon for it to be helpful. We'll continue aerosolized bronchodilator therapy. Discharge Diagnosis 1. Day 1 status post kyphoplasty of T11. The patient is still having significant back pain although improved. She has a history of chronic low back pain I suspect she still having discomfort as she does also likely have a contusion versus a very small compression fracture of T10. Patient was encouraged that she was going to need to walk today and the importance of using incentive spirometry. RT will be back to instruct her if she is apparently did have some difficulty with appropriate utilization per nursing staff.. 2. Acute Moraxella had a urinalysis right lower lobe pneumonia pneumonia. Will benefit for at least another day of antibiotics especially in light of the fact that she will likely resume smoking despite discussion of her need to quit especially in light of O2 dependent COPD. After discussion she is agreeable to another 24 hours of hospitalization. 3. Constipation a dose of Senokot S and MiraLAX will be administered now and another dose of MiraLAX tonight. Reason Hospital Visit/Course Jesica reports ever since the fall she took this Wednesday she has had severe mid to lower back pain. It is nonradicular and worse with any position changes as well as with deep breathing. His history of COPD reports her cough is been at baseline but this aggravates her pain. She has had no purulent sputum production denies chills or fever. She was noted to be hypoxic in the emergency room although this was based on O2 saturations which at times of been rather inaccurate for this patient. She denied feeling any more shortness of breath at baseline but had been out of albuterol and had not been taking her metered-dose inhalers either. Due to pain she presented to the emergency room. At baseline she takes about 6-8 hydrocodone daily for chronic lower back pain. On x-ray evaluation she did have a T11 compression fracture which should not been noted in the past. She was subsequently admitted for pain management as well as treatment for underlying hypoxia with very questionable pneumonia. Discharge Summary Discharge Physical Examination Allergies: Coded Allergies: morphine (Unverified Allergy, Unknown, 01/23/16) Vitals & I&Os Vital Signs Date Time Temp Pulse Resp B/P (MAP) Pulse Ox O2 Delivery O2 Flow Rate FiO2 10/28/16 07:31 93 Nasal Cannula 4.00 10/28/16 07:23 97.0 85 20 133/71 Hospital Course Labs (last 24 hrs) Microbiology 10/24/16 Blood Culture - Preliminary, Resulted No growth 10/26/16 MRSA Screen - Final, Complete MRSA not isolated 10/24/16 Urine Culture - Final, Complete Presumptive [facility] Albicans Discharge Home Medications: Active Scripts Active Alendronate Sodium 70 Mg Tablet 70 Mg PO WEEK Cefdinir 300 Mg Capsule 300 Mg PO BID 5 Days Reported Lorazepam 1 Mg Tablet 1 Mg PO Q6H PRN Gabapentin 100 Mg Capsule 100 Mg PO TID Meloxicam 15 Mg Tablet 15 Mg PO DAILY Potassium Chloride 20 Meq Tab.er.prt 40 Meq PO DAILY PRN TAKES 2 (20 MEQ) TABLETS Furosemide 40 Mg Tablet 40 Mg PO DAILY PRN Aripiprazole 5 Mg Tablet 5 Mg PO DAILY Duloxetine HCl 60 Mg Capsule.dr 60 Mg PO DAILY TAKES ALONG WITH DULOXETINE 30 MG Duloxetine HCl 30 Mg Capsule.dr 30 Mg PO DAILY TAKES ALONG WITH DULOXETINE 60 MG Multi-Vitamin Gummies (Folic Acid/Multivits-Min/Lut) 1 Each Tab.chew 1 Tab PO DAILY Hydrocodone-Apap 10-325 Tablet (Acetaminophen/Hydrocodone Bitart) 1 Each Tablet 1 Tab PO Q4H PRN Instructions to patient/family Please see electonic discharge instructions given to patient. Clinical Quality Measures DVT/VTE Risk/Contraindication: Risk Factor Score Per Nursin RFS Level Per Nursing on Admit: 4+=Very High Pneumonia: Pseudomonal Risk: COPD AUGUSTUS LECHUGA MD Oct 28, 2016 08:24
[2016-10-28 09:10] VITALS: BP 133/71
--- NOTE | 2016-10-30 12:13 | Discharge Summary-Hospitalist ---
Diagnosis/Chief Complaint Date of Admission Oct 24, 2016 at 10:15 Date of Discharge Oct 28, 2016 at 09:15 Discharge Date: Oct 28, 2016 Admission Diagnosis 1. Acute back pain suspected acute T11 compression fracture in a patient with known osteoporosis. We'll obtain thoracic MRI and consult orthopedics for evaluation for possible kyphoplasty candidacy. 2. Acute COPD exacerbation secondary to noncompliance with inhalers infection doubtful for now however will continue antibiotics in the form of Rocephin. We will resume bronchodilator therapy. Currently the patient is not wheezing. She did receive 1 dose of Solu-Medrol 2 hours ago too soon for it to be helpful. We'll continue aerosolized bronchodilator therapy. Discharge Diagnosis 1. Day 1 status post kyphoplasty of T11. The patient is still having significant back pain although improved. She has a history of chronic low back pain I suspect she still having discomfort as she does also likely have a contusion versus a very small compression fracture of T10. Patient was encouraged that she was going to need to walk today and the importance of using incentive spirometry. RT will be back to instruct her if she is apparently did have some difficulty with appropriate utilization per nursing staff.. 2. Acute Moraxella right lower lobe pneumonia pneumonia. Will benefit for at least another day of antibiotics especially in light of the fact that she will likely resume smoking despite discussion of her need to quit especially in light of O2 dependent COPD. After discussion she is agreeable to another 24 hours of hospitalization. 3. Constipation a dose of Senokot S and MiraLAX will be administered now and another dose of MiraLAX tonight. Reason Hospital Visit/Course Jesica reports ever since the fall she took this Wednesday she has had severe mid to lower back pain. It is nonradicular and worse with any position changes as well as with deep breathing. His history of COPD reports her cough is been at baseline but this aggravates her pain. She has had no purulent sputum production denies chills or fever. She was noted to be hypoxic in the emergency room although this was based on O2 saturations which at times of been rather inaccurate for this patient. She denied feeling any more shortness of breath at baseline but had been out of albuterol and had not been taking her metered-dose inhalers either. Due to pain she presented to the emergency room. At baseline she takes about 6-8 hydrocodone daily for chronic lower back pain. On x-ray evaluation she did have a T11 compression fracture which should not been noted in the past. She was subsequently admitted for pain management as well as treatment for underlying hypoxia with very questionable pneumonia. Hospital course: Patient was admitted to acute care and started on IV narcotic analgesic therapy for severe back pain. MRI was obtained with findings compatible with an acute T11 compression fracture. Pain was poorly controlled even on IV narcotics until the patient underwent kyphoplasty with significant improvement in pain. She was still having some back pain and there was some edema without evidence for overt compression fracture of T10 which I suspect why she was still having some discomfort. She was ambulating unassisted time of her discharge. Her hospital course was complicated by right lower lobe pneumonia in an individual has underlying O2 dependent COPD. Sputum cultures were positive for Moraxella catarrhalis. The patient's IV Rocephin was switched to Omnicef 300 mg twice a day that she will take for another 5 days. She is scheduled to see me in one week. We had a long discussion about tobaccoism she states that she plans not to smoke when she goes home. We did discuss coping strategies for urges which thus far in the hospital have not been significant. We discussed the life-threatening nature of cigarettes and that her current compression fracture was likely a result of her smoking as well. She indicated to me that she had not been compliant with oral bisphosphonate therapy but that she would be. She denied any significant side effects with the medication. On return we'll consider re-class to improve compliance. She strongly advised her present to get all the cigarettes out of the house as she specked that she will have cravings and while they may be intense at times they tend to be short-lived lasting less than 5 minutes. We 'll monitor her progress in this regard on her return office visit. She did not wish to consider medication at this time to aid in smoking cessation which was offered. Discharge Summary Discharge Physical Examination Allergies: Coded Allergies: morphine (Unverified Allergy, Unknown, 01/23/16) Vitals & I&Os Vital Signs Date Time Temp Pulse Resp B/P (MAP) Pulse Ox O2 Delivery O2 Flow Rate FiO2 10/28/16 09:10 85 20 133/71 93 Nasal Cannula 4.00 10/28/16 07:23 97.0 Hospital Course Labs (last 24 hrs) Microbiology 10/24/16 Blood Culture - Final, Complete No growth 10/26/16 MRSA Screen - Final, Complete MRSA not isolated 10/24/16 Urine Culture - Final, Complete Presumptive [facility] Albicans Discharge Home Medications: Active Scripts Active Alendronate Sodium 70 Mg Tablet 70 Mg PO WEEK Cefdinir 300 Mg Capsule 300 Mg PO BID 5 Days Reported Lorazepam 1 Mg Tablet 1 Mg PO Q6H PRN Gabapentin 100 Mg Capsule 100 Mg PO TID Meloxicam 15 Mg Tablet 15 Mg PO DAILY Potassium Chloride 20 Meq Tab.er.prt 40 Meq PO DAILY PRN TAKES 2 (20 MEQ) TABLETS Furosemide 40 Mg Tablet 40 Mg PO DAILY PRN Aripiprazole 5 Mg Tablet 5 Mg PO DAILY Duloxetine HCl 60 Mg Capsule.dr 60 Mg PO DAILY TAKES ALONG WITH DULOXETINE 30 MG Duloxetine HCl 30 Mg Capsule.dr 30 Mg PO DAILY TAKES ALONG WITH DULOXETINE 60 MG Multi-Vitamin Gummies (Folic Acid/Multivits-Min/Lut) 1 Each Tab.chew 1 Tab PO DAILY Hydrocodone-Apap 10-325 Tablet (Acetaminophen/Hydrocodone Bitart) 1 Each Tablet 1 Tab PO Q4H PRN Instructions to patient/family Please see electonic discharge instructions given to patient. Clinical Quality Measures DVT/VTE Risk/Contraindication: Risk Factor Score Per Nursin RFS Level Per Nursing on Admit: 4+=Very High Pneumonia: Pseudomonal Risk: COPD AUGUSTUS LECHUGA MD Oct 30, 2016 12:13
== END 2016-10-28 09:15 | disposition home or self-care (01) | DRG 515 ==
LOC: EDUNIT# 05:19 → ER 05:22 → 4TH 10:15
PROVIDERS: ADMIT Internal Medicine; ATTEND Internal Medicine
PROC: 0PU43JZ Supplement Thoracic Vertebra with Synthetic Substitute, Percutaneous Approach (ICD-10-PCS; 2016-10-26)
PROC: 0PB Upper Bones, Excision (ICD-10-PCS; 2016-10-26)
PROC: 0PS43ZZ Reposition Thoracic Vertebra, Percutaneous Approach (ICD-10-PCS; principal; 2016-10-26 12:00)
DX: M80.88XA Other osteoporosis with current pathological fracture, vertebra(e), initial encounter for fracture (principal); J44.0 Chronic obstructive pulmonary disease with (acute) lower respiratory infection; J15.6 Pneumonia due to other Gram-negative bacteria; J44.1 Chronic obstructive pulmonary disease with (acute) exacerbation; Z91.14 Patient's other noncompliance with medication regimen; F17.210 Nicotine dependence, cigarettes, uncomplicated; F41.9 Anxiety disorder, unspecified; J20.9 Acute bronchitis, unspecified; K59.00 Constipation, unspecified
CPT/HCPCS: 36415; 71020; 72100; 72146; 80053; 81000; 83605; 83735; 83880; 84484; 85025; 85610; 85730; 86141; 87040; 87070; 87077; 87081; 87088; 87205; 93005; 93041; 94640; 94664; 94760

== ENCOUNTER → 2016-11-09 | Outpatient (CLI) | payer OTHER ==
[~2016-11-09] VITALS: Ht 172.7 cm; Wt 81.9 kg
[~2016-11-09] MED LIST changes: +ALEN70TA47 PO; +ARIP5TAB20 PO; +DULO60CA58 PO; +LORA1TAB PO; +MELO15TA39 PO; +ZOLEDRONATE 5 MG/100 ML (RECLAST) BTL IV ONE
[2016-11-09 14:04] VITALS: BP 96/72
== END ==
LOC: SDC 13:11
PROVIDERS: ATTEND Internal Medicine
DX: M80.08XA Age-related osteoporosis with current pathological fracture, vertebra(e), initial encounter for fracture (principal)
CPT/HCPCS: 96365

== ENCOUNTER → 2016-12-25 | Outpatient (CLI) | payer OTHER ==
[~2016-12-25] MED LIST changes: -ZOLEDRONATE 5 MG/100 ML (RECLAST) BTL IV ONE
--- NOTE | 2016-12-25 11:37 | Diagnostic Imaging Report ---
PROCEDURE: CT chest without contrast. TECHNIQUE: Multiple contiguous axial images were obtained through the chest without the use of intravenous contrast. INDICATION: Dyspnea. COPD. Findings: There is minimal atelectasis and scarring in the lung bases. In the infrahilar region of the left lung there is a mild groundglass consolidation and there is a nonspecific nodule seen in the medial aspect of the right lower lobe measuring 1.2 CM with multiple micronodules seen in the right lower lobe as well and in the right middle lobe. This lesion was obscured on the previous exam by an effusion when compared to 07/19/2014 study. Etiology is uncertain. No significant solid consolidation. There is mild emphysema changes mostly in the upper lobes. The heart size is normal. No significant pericardial effusion. No pleural effusion. The thoracic aorta is normal in caliber. No significantly enlarged mediastinal or axillary lymph node is seen. No hilar significantly enlarged lymph node is noted. Sections of the upper abdomen demonstrate thickening of the left adrenal gland. The osseous structures demonstrate kyphoplasty change at the T11 level. IMPRESSION: Nonspecific nodular densities in the right lower lobe up to 1 cm in size, and minimal groundglass opacity in the infrahilar region on the left are seen. These could relate to prior infection or granulomatous process. An active atypical or fungal infection is less likely but cannot be entirely excluded. Correlate clinically. A short-term followup CT chest or further evaluation with PET/CT for the dominant right lower lobe nodule can be helpful. Dictated by: Dictated on workstation # [id number]
== END ==
LOC: RAD 09:58
PROVIDERS: ATTEND Nurse Practitioner Family
DX: R91.8 Other nonspecific abnormal finding of lung field (principal); R06.02 Shortness of breath; R53.83 Other fatigue; Z72.0 Tobacco use
CPT/HCPCS: 71250

== ENCOUNTER → 2017-04-05 | Outpatient (CLI) | payer OTHER ==
--- NOTE | 2017-04-05 16:09 | Diagnostic Imaging Report ---
PROCEDURE: CT chest without contrast. TECHNIQUE: Multiple contiguous axial images were obtained through the chest without the use of intravenous contrast. INDICATION: Dyspnea. COPD. COMPARISON: 12/25/2016. FINDINGS: The previously seen nodule in the medial aspect of the right lower lobe is completely resolved at this time suggestive of benign etiology. There is only minimal atelectasis or scarring remaining seen in the posterior aspect of the right upper lobe. Also mild atelectasis or scarring is suggested in the left infrahilar region. There is a 7 mm nonspecific nodule in the lingula new from the prior exam, noted on axial image 41. The heart size is normal. No pericardial or pleural effusion. The thoracic aorta is normal in caliber. No axillary lymphadenopathy is seen. No hilar masses are identified. There is diffuse thickening in the left adrenal gland probably related to adrenal hyperplasia. The osseous structures demonstrate kyphoplasty changes seen at T11 level. IMPRESSION: Indeterminate 7 mm pulmonary nodule in the lingula, axial image 41 is seen. This is new from the prior exams. Six-month followup unenhanced low dose CT chest study is recommended to reevaluate. Dictated by: Dictated on workstation # [id number]
== END ==
LOC: RAD 13:16
PROVIDERS: ATTEND Nurse Practitioner Family
DX: R91.1 Solitary pulmonary nodule (principal); J44.9 Chronic obstructive pulmonary disease, unspecified
CPT/HCPCS: 71250

== ENCOUNTER → 2017-04-15 | Outpatient (CLI) | payer OTHER | LOC: CARD 13:47 | PROVIDERS: ATTEND Nurse Practitioner Family | DX: I27.20 Pulmonary hypertension, unspecified (principal); R06.02 Shortness of breath; J43.8 Other emphysema; Z72.0 Tobacco use | CPT/HCPCS: 93306 ==

== ENCOUNTER → 2017-05-06 | Outpatient (CLI) | payer OTHER ==
--- NOTE | 2017-05-07 11:53 | Diagnostic Imaging Report ---
Bilateral screening mammogram 2D views with tomosynthesis. The current study was also evaluated with a Computer Aided Detection (CAD) system. INDICATION: Screening. No current complaints stated on the questionnaire. COMPARISON: 05/05/2016. FINDINGS: The breasts are composed of heterogeneously dense parenchyma which may decrease mammographic sensitivity. Occasional benign-appearing calcifications are seen. Allowing for technique and positional differences, no suspicious change is seen. IMPRESSION: No significant change. ACR BI-RADS Category 2: Benign findings. Result letter will be mailed to the patient. Note: At least 10% of breast cancer is not imaged by mammography. Dictated on workstation # [id number]
== END ==
LOC: RAD 10:46
PROVIDERS: ATTEND Internal Medicine
DX: Z12.31 Encounter for screening mammogram for malignant neoplasm of breast (principal)
CPT/HCPCS: 77067

== ENCOUNTER 2017-07-28 16:55 | Emergency (ER) | payer OTHER ==
[~2017-07-28] VITALS: Ht 172.7 cm; Wt 81.9 kg
--- NOTE | 2017-07-28 18:02 | ED Fall/Injury ---
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 C-COLLAR APPLIED AT TRIAGE. DENIES ANY LOC. Source: patient, spouse Exam Limitations: no limitations (HELEN FARFAN) History of Present Illness Date Seen by Provider: Jul 28, 2017 Time Seen by Provider: 17:20 Initial Comments Patient presents to ER with her significant other a chief complaint that she fell against her year-old striking her right head having some bleeding. She denies being on blood thinners. She denies dysuria, shortness of breath, cough, malaise, fever, nausea, vomiting. She denies loss of consciousness. (HELEN FARFAN) Allergies and Home Medications Allergies Coded Allergies: morphine (Unverified Allergy, Unknown, 01/23/16) Home Medications Alendronate Sodium 70 Mg Tablet, 70 MG PO WEEK Prescribed by: AUGUSTUS LECHUGA on 10/28/16 08 Aripiprazole 5 Mg Tablet, 5 MG PO DAILY, (Reported) Cefdinir 300 Mg Capsule, 300 MG PO BID Prescribed by: AUGUSTUS LECHUGA on 10/28/16 0820 Cephalexin 500 Mg Capsule, 500 MG PO QID Prescribed by: MARCIANO PAUL on 07/28/171948 Duloxetine HCl 30 Mg Capsule.dr, 30 MG PO DAILY, (Reported) TAKES ALONG WITH DULOXETINE 60 MG Duloxetine HCl 60 Mg Capsule.dr, 60 MG PO DAILY, (Reported) TAKES ALONG WITH DULOXETINE 30 MG Folic Acid/Multivits-Min/Lut 1 Each Tab.chew, 1 TAB PO DAILY, (Reported) Furosemide 40 Mg Tablet, 40 MG PO DAILY PRN for FLUID RETENTION, (Reported) Gabapentin 100 Mg Capsule, 100 MG PO TID, (Reported) Hydrocodone Bit/Acetaminophen 1 Each Tablet, 1 TAB PO Q4H PRN for PAIN, ( Reported) Lorazepam 1 Mg Tablet, 1 MG PO Q6H PRN for ANXIETY, (Reported) Meloxicam 15 Mg Tablet, 15 MG PO DAILY, (Reported) Potassium Chloride 20 Meq Tab.er.prt, 40 MEQ PO DAILY PRN for WITH FUROSEMIDE , (Reported) TAKES 2 (20 MEQ) TABLETS Patient Home Medication List Home Medication List Reviewed: Yes (HELEN FARFAN) Constitutional: No chills, No diaphoresis Eyes: Denies Blindness, Denies Blurred Vision Ears, Nose, Mouth, Throat: denies ear pain, denies ear discharge Respiratory: No cough, No short of breath Cardiovascular: No chest pain, No palpitations Gastrointestinal: No constipation, No diarrhea Genitourinary: No discharge, No dysuria Skin: see HPI Psychiatric/Neurological: Denies Numbness, Denies Paresthesia, Denies Seizure ( HELEN FARFAN) Past Hqbwnxo-Qbhwyd-Aockjm Hx Patient Social History Alcohol Use: Denies Use Recreational Drug Use: Yes (SMOKES 1 PPD, PRISON USE OPIATES/BENZO) Smoking Status: Current Everyday Smoker Type Used: Cigarettes Recent Foreign Travel: No Contact w/Someone Who Travel: No Recent Infectious Disease Expo: No Recent Hopitalizations: Yes (COPD EXACERBATION OCTOBER 2016) (HELEN FARFAN) Immunizations Up To Date Tetanus Booster (TDap): Less than 5yrs Date of Pneumonia Vaccine: Jul 24, 2016 Date of Influenza Vaccine: Feb 17, 2017 (HELEN FARFAN) Seasonal Allergies Seasonal Allergies: No (HELEN FARFAN) Surgeries History of Surgeries: Yes (C-SPINE SURGERY 2007, BACK SURGERY, RIGHT ANKLE SURGERY) Surgeries: Orthopedic (HELEN FARFAN) Respiratory History of Respiratory Disorde: Yes Respiratory Disorders: Pneumonia, Chronic Bronchitis, COPD (HELEN FARFAN) Cardiovascular History of Cardiac Disorders: No (HELEN FARFAN) Neurological History of Neurological Disord: No (HELEN FARFAN) Reproductive System Hx Reproductive Disorders: No Female 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 (HELEN FARFAN) Genitourinary History of Genitourinary Disor: No (HELEN FARFAN) Gastrointestinal History of Gastrointestinal Di: No (HELEN FARFAN) Musculoskeletal History of Musculoskeletal Dis: Yes (CHRONIC NECK PAIN AND RIGHT HIP PAIN ) Musculoskeletal Disorders: Degenerate Disk Disease, Osteoporosis, Chronic Back Pain (HELEN FARFAN) Endocrine History of Endocrine Disorders: No (HELEN FARFAN) HEENT History of HEENT Disorders: Yes (WEARS GLASSES) Loss of Vision: Bilateral Hearing Impairment: Denies (HELEN FARFAN) Cancer History of Cancer: No (HELEN FARFAN) Psychosocial History of Psychiatric Problem: Yes Behavioral Health Disorders: Anxiety (HELEN FARFAN) Integumentary History of Skin or Integumenta: No (HELEN FARFAN) Blood Transfusions History of Blood Disorders: No Adverse Reaction to a Blood Tr: No (HELEN FARFAN) Family Medical History Family Medial History: Breas 19 MOTHER Congenital heart disease 19 FATHER 19 MOTHER Hypertension 19 FATHER 19 MOTHER Myocardial infarction 19 MOTHER Prostate cancer 19 FATHER (HELEN FARFAN) Family Medial History: Breas 19 MOTHER Congenital heart disease 19 FATHER 19 MOTHER Hypertension 19 FATHER 19 MOTHER Myocardial infarction 19 MOTHER Prostate cancer 19 FATHER (MARCIANO BLANCHARD MD) Physical Exam Vital Signs Vital Signs - First Documented 07/28/17 17:29 Temp 97.2 Pulse 96 Resp 18 B/P (MAP) 137/78 (97) Pulse Ox 93 O2 Delivery Nasal Cannula O2 Flow Rate 2.00 (MARCIANO BLANCHARD MD) Vital Signs Capillary Refill : Less Than 3 Seconds (HELEN FARFAN) General Appearance: WD/WN, no apparent distress HEENT: TMs normal, other (negative for Michelle sign. C-collar in place) Neck: supple, normal inspection Cardiovascular: normal peripheral pulses, regular rate, rhythm Respiratory: lungs clear, other (right RIBS tender to palpation) Peripheral Pulses: 2+ Dorsalis Pedis (R), 2+ Left Dors-Pedis (L), 2+ Radial Pulses (R), 2+ Radial Pulses (L) Gastrointestinal: normal bowel sounds, non tender, soft Extremities: normal inspection, no calf tenderness, normal capillary refill Neurologic/Psychiatric: alert, oriented x 3 Skin: other (laceration right parietal scalp) (HELEN FARFAN) [place] Coma Score Best Eye Response: (4) Open Spontaneously Best Verbal Response: (5) Oriented Best Motor Response: (6) Obeys Commands [place] Total: 15 (HELEN FARFAN) Laceration Repair : Suture Size: 5-0 (HELEN FARFAN) Progress/Results/Core Measures Results/Orders Lab Results Laboratory Tests Test 07/28/17 18:00 07/28/17 18:11 07/28/17 18:20 Range/Units White Blood Count 8.6 4.3-11.0 10^3/uL Red Blood Count 4.66 4.35-5.85 10^6/uL Hemoglobin 14.3 11.5-16.0 G/DL Hematocrit 47 35-52 % Mean Corpuscular Volume 100 H 80-99 FL Mean Corpuscular Hemoglobin 31 25-34 PG Mean Corpuscular Hemoglobin Concent 31 L 32-36 G/DL Red Cell Distribution Width 13.0 10.0-14.5 % Platelet Count 144 130-400 10^3/uL Mean Platelet Volume 11.4 H 7.4-10.4 FL Neutrophils (%) (Auto) 75 42-75 % Lymphocytes (%) (Auto) 17 12-44 % Monocytes (%) (Auto) 8 0-12 % Eosinophils (%) (Auto) 0 0-10 % Basophils (%) (Auto) 0 0-10 % Neutrophils # (Auto) 6.5 1.8-7.8 X 10^3 Lymphocytes # (Auto) 1.4 1.0-4.0 X 10^3 Monocytes # (Auto) 0.7 0.0-1.0 X 10^3 Eosinophils # (Auto) 0.0 0.0-0.3 10^3/uL Basophils # (Auto) 0.0 0.0-0.1 10^3/uL Sodium Level 141 135-145 MMOL/L Potassium Level 4.2 3.6-5.0 MMOL/L Chloride Level 94 L 98-107 MMOL/L Carbon Dioxide Level 38 H 21-32 MMOL/L Anion Gap 9 5-14 MMOL/L Blood Urea Nitrogen 15 7-18 MG/DL Creatinine 0.65 0.60-1.30 MG/DL Estimat Glomerular Filtration Rate > 60 BUN/Creatinine Ratio 23 Glucose Level 125 H 70-105 MG/DL Calcium Level 9.8 8.5-10.1 MG/DL Total Bilirubin 0.5 0.1-1.0 MG/DL Aspartate Amino Transf (AST/SGOT) 18 5-34 U/L Alanine Aminotransferase (ALT/SGPT) 12 0-55 U/L Alkaline Phosphatase 59 40-136 U/L Total Protein 7.1 6.4-8.2 GM/DL Albumin 4.5 3.2-4.5 GM/DL Serum Alcohol < 10 <10 MG/DL Urine Color YELLOW Urine Clarity CLEAR Urine pH 8 5-9 Urine Specific [place] 1.010 L 1.016-1.022 Urine Protein 2+ H NEGATIVE Urine Glucose (UA) NEGATIVE NEGATIVE Urine Ketones 2+ H NEGATIVE Urine Nitrite NEGATIVE NEGATIVE Urine Bilirubin NEGATIVE NEGATIVE Urine Urobilinogen 1 NORMAL MG/DL Urine Leukocyte Esterase 2+ H NEGATIVE Urine RBC (Auto) 2+ H NEGATIVE Urine RBC NONE /HPF Urine WBC 10-25 H /HPF Urine Squamous Epithelial Cells 10-25 H /HPF Urine Crystals NONE /LPF Urine Bacteria TRACE /HPF Urine Casts NONE /LPF Urine Mucus NEGATIVE /LPF Urine Culture Indicated YES (MARCIANO BLANCHARD MD) Micro Results Microbiology 07/28/17 Urine Culture - Preliminary, Resulted Escherichia coli Strep Or Related Genus (MARCIANO BLANCHARD MD) My Orders Orders - MARCIANO BLANCHARD MD Alcohol (07/28/17 18:11) Ua Culture If Indicated (07/28/17 18:11) Saline Lock/Iv-Start (07/28/17 18:11) Fentanyl Injection (Sublimaze Injection (07/28/17 18:15) Albuterol/Ipra Inhalation Soln (Duoneb I (07/28/17 18:15) Svn Sm Volume Nebulizer Rt-Rfs (07/28/17 18:11) Chest 1 View, Ap/Pa Only (07/28/17 18:11) Pelvis (07/28/17 18:11) Urine Culture (07/28/17 18:20) Ketorolac Injection (Toradol Injection) (07/28/17 19:45) Ketorolac Injection (Toradol Injection) (07/28/17 19:39) (MARCIANO BLANCHARD MD) Medications Given in ED (MARCIANO BLANCHARD MD) Vital Signs/I&O Vital Sign - Last 12Hours 07/28/17 07/28/17 07/28/17 07/28/17 17:29 18:22 18:26 19:53 Temp 97.2 97.2 Pulse 96 74 Resp 18 18 B/P (MAP) 137/78 (97) 137/78 Pulse Ox 93 91 99 O2 Delivery Nasal Cannula Nasal Cannula Room Air O2 Flow Rate 2.00 2.00 (MARCIANO BLANCHARD MD) Blood Pressure Mean: 97 Progress Note : Progress Note Care of this patient was assumed from Dr. Farfan at shift change. Patient was reexamined. She was found to be in c-collar as applied on assessment. She had a shallow 2 cm laceration on the right parietal scalp that did not require repair. Heart was regular rate and rhythm without murmur. Lungs demonstrated wheezing and rhonchi. There is no other obvious injury. Patient was given a DuoNeb treatment for her wheezing related to COPD. Fentanyl was given for initial treatment of pain. Imaging reports were reviewed and patient was found to have no traumatic injuries aside from her laceration. C-collar was removed. Antibiotic ointment was applied to the wound. Toradol was given for further pain management. Patient was found to have a urinary tract infection and antibiotics were prescribed. (MARCIANO BLANCHARD MD) Diagnostic Imaging Diagonstic Imaging: Xray Plain Films/CT/US/NM/MRI: chest Comments Chest x-ray viewed by me and report reviewed. See report below: NAME: MELY [facility]IRA [facility] REC#: [id number] PT STATUS: REG ER : 1955 PHYSICIAN: MARCIANO BLANCHARD MD ADMIT DATE: 07/28/17/ER Signed Date of Exam: 07/28/17 CHEST 1 VIEW, AP/PA ONLY INDICATION: Fall. COMPARISON: October 25, 2016. TECHNIQUE: Single frontal radiograph of the chest dated July 28, 2017. FINDINGS: Postsurgical changes within the cervical and thoracic spine. The cardiac silhouette remains mildly enlarged. Mild tortuosity of the thoracic aorta. No pulmonary vascular congestion. The lungs are clear. No pleural effusion. No pneumothorax. Vertebroplasty changes within the lower thoracic spine. No acute osseous abnormality. IMPRESSION: Mild cardiomegaly and postsurgical changes without acute cardiopulmonary abnormality. Dictated by: Dictated on workstation # [id number] Dict: 07/28/171849 Trans: 07/28/171939 Interpreted by: TOMMY ORNELAS MD Electronically signed by: TOMMY ORNELAS MD 07/28/171939 Diagonstic Imaging: CT Plain Films/CT/US/NM/MRI: c-spine, head Comments CT head and C-spine viewed by me and report reviewed. See report below: NAME: MELY MOREIRA [facility] REC#: [id number] PT STATUS: REG ER : 1955 PHYSICIAN: HELEN FARFAN MD ADMIT DATE: 07/28/17/ER Signed Date of Exam: 07/28/17 CT HEAD/CERVICAL SPINE WO PROCEDURE: CT head and CT cervical spine without contrast. TECHNIQUE: Multiple contiguous axial images were obtained through the brain and cervical spine without the use of intravenous contrast. Sagittal and coronal reformations through the cervical spine were then performed. INDICATION: Fall, hit head. COMPARISON: January 23, 2016. FINDINGS: No intracranial hemorrhage. No intracranial mass, mass effect, midline shift, herniation, hydrocephalus, or extra-axial fluid collection. No CT evidence of an acute ischemic infarction. The bilateral ocular lenses are absent. The calvarium and extracalvarial soft tissues are unremarkable. Posterior decompression of C4, C5, and C6 with anterior plate and screw fixation of C3 through C7. Posterior fusion is also identified. No evidence of hardware complication. Alignment of the cervical spine is stable and well maintained. Alignment of the atlanto-occipital joint is well maintained. No evidence of an acute compression deformity. Disc spaces appear stable from the prior examination. No acute fracture or dislocation. No destructive osseous process. Scattered uncovertebral joint hypertrophy with resultant multilevel neuroforaminal stenosis, similar to the prior examination. Scattered vascular calcifications. The airway remains patent. No apical pneumothorax. 0.8 cm lymph node within the left neck immediately inferior to the left mandible and anterior to the submandibular gland is identified which appears slightly more prominent than in 2016. IMPRESSION: 1. No acute intracranial abnormality. 2. No acute osseous abnormality within the cervical spine with extensive postsurgical changes, as described above. There is resulting multilevel neuroforaminal stenosis. 3. Lymph node immediately inferior to the mandible on the left has mildly increased in size since the prior examination in January 2016. This is of uncertain etiology. This may simply be reactive in nature, though infiltrative process is not totally excluded. Dictated by: Dictated on workstation # [id number] Dict: 07/28/171902 Trans: 07/28/171939 Interpreted by: TOMMY ORNELAS MD Electronically signed by: TOMMY ORNELAS MD 07/28/171939 Diagonstic Imaging: Xray Plain Films/CT/US/NM/MRI: pelvis Comments Pelvis x-ray viewed by me and report reviewed. See report below: NAME: MELY [facility]IRA [facility] REC#: [id number] PT STATUS: REG ER : 1955 PHYSICIAN: MARCIANO BLANCHARD MD ADMIT DATE: 07/28/17/ER Signed Date of Exam: 07/28/17 PELVIS INDICATION: Fell with pelvic and lower back pain. COMPARISON STUDY: Lumbar spine from 10/24/2016. FINDINGS: AP view of the pelvis demonstrates no fracture or diastasis. Degenerative changes again seen in the lower lumbar spine. IMPRESSION: There are no acute findings. Dictated by: Dictated on workstation # [id number] Dict: 07/28/171901 Trans: 07/28/171919 Interpreted by: MICHELLE SNEED MD Electronically signed by: MICHELLE SNEED MD 07/28/171919 (MARCIANO BLANCHARD MD) Transfer of Care Transfer of Care Time: 18:00 Care transferred to: HELEN Sanford) Departure Impression Impression: Primary Impression: Fall on same level Qualified Codes: W18.30XA - Fall on same level, unspecified, initial encounter Additional Impressions: Scalp laceration Qualified Codes: S01.01XA - Laceration without foreign body of scalp, initial encounter COPD exacerbation Urinary tract infection Qualified Codes: N39.0 - Urinary tract infection, site not specified Enlarged lymph node Disposition: HOME, SELF-CARE Condition: Improved Departure-Patient Inst. Decision time for Depature: 19:30 (MARCIANO BLANCHARD MD) Referrals: AUGUSTUS LECHUGA MD (PCP/Family) Primary Care Physician Patient Instructions: Urinary Tract Infection, Adult (DC) Add. Discharge Instructions: Complete your antibiotics as prescribed. Drink plenty of clear liquids. Follow -up with your primary care provider on Wednesday to review urine culture results. Return to care if symptoms worsen. Monitor your wound for signs of infection such as increasing swelling, increasing pain, puslike drainage, redness, or fever. Return to care if you notice these symptoms. You may shower starting tomorrow but avoid scrubbing directly over the wound until healed. Apply direct pressure sterile gauze if bleeding returns. For your COPD, continue your oxygen therapy and breathing treatments as previously directed. Work toward quitting smoking. Work with your primary care provider as needed. Information on the smoking cessation class and pulmonary rehabilitation are provided on these discharge instructions. Also discuss the lymph node on your left jaw with your doctor. All discharge instructions reviewed with patient and/or family. Voiced understanding. Scripts Cephalexin (Keflex) 500 Mg Capsule 500 MG PO QID, #28 CAP Prov: MARCIANO BLANCHARD MD 07/28/17 Copy Copies To 1: AUGUSTUS LECHUGA MD, TITUS J Jul 28, 2017 18:02 MARCIANO BLANCHARD MD Jul 28, 2017 19:40
[2017-07-28 18:14] LABS: BASOPHILS % (AUTO) 0 % (0-10); EOSINOPHILS % (AUTO) 0 % (0-10); HEMATOCRIT 47 % (35-52); HEMOGLOBIN 14.3 G/DL (11.5-16.0); LYMPHOCYTES # (AUTO) 1.4 X 10^3 (1.0-4.0); LYMPHOCYTES % (AUTO) 17 % (12-44); MEAN CORPUSCULAR HEMOGLOBIN 31 PG (25-34); MEAN CORPUSCULAR HGB CONC 31 G/DL (32-36); MEAN CORPUSCULAR VOLUME 100 FL (80-99); MEAN PLATELET VOLUME 11.4 FL (7.4-10.4); MONOCYTES # (AUTO) 0.7 X 10^3 (0.0-1.0); MONOCYTES % (AUTO) 8 % (0-12); NEUTROPHILS # (AUTO) 6.5 X 10^3 (1.8-7.8); NEUTROPHILS % (AUTO) 75 % (42-75); PLATELET COUNT 144 10^3/uL (130-400); RED BLOOD COUNT 4.66 10^6/uL (4.35-5.85); WHITE BLOOD COUNT 8.6 10^3/uL (4.3-11.0)
[2017-07-28] MEDS ORDERED: fentaNYL INJECTION 100 MCG/2 ML AMP IVP ONE (18:15)
[2017-07-28] MEDS ORDERED: RT-ALBUTEROL/IPRATROPIUM 3 ML (DUONEB) VIAL INH ONE (18:15)
[2017-07-28 18:31] LABS: BILIRUBIN,URINE NEGATIVE (NEGATIVE); CLARITY,URINE CLEAR; COLOR,URINE YELLOW; GLUCOSE, URINE (UA) NEGATIVE (NEGATIVE); KETONES,URINE 2+ (NEGATIVE); LEUKOCYTE ESTERASE ,URINE 2+ (NEGATIVE); NITRITE,URINE NEGATIVE (NEGATIVE); PH,URINE 8 (5-9); PROTEIN,URINE 2+ (NEGATIVE); UROBILINOGEN,URINE 1 MG/DL (NORMAL)
[2017-07-28 18:33] LABS: ALANINE AMINOTRANSFERASE 12 U/L (0-55); ALBUMIN 4.5 GM/DL (3.2-4.5); ALKALINE PHOSPHATASE 59 U/L (40-136); BILIRUBIN,TOTAL 0.5 MG/DL (0.1-1.0); BUN/CREATININE RATIO 23; CALCIUM 9.8 MG/DL (8.5-10.1); CARBON DIOXIDE 38 MMOL/L (21-32); CHLORIDE 94 MMOL/L (98-107); CREATININE SERUM 0.65 MG/DL (0.60-1.30); GFR ESTIMATED > 60; GLUCOSE 125 MG/DL (70-105); POTASSIUM 4.2 MMOL/L (3.6-5.0); SODIUM 141 MMOL/L (135-145); TOTAL PROTEIN 7.1 GM/DL (6.4-8.2)
[2017-07-28 18:52] LABS: BACTERIA,URINE TRACE /HPF
--- NOTE | 2017-07-28 18:58 | Diagnostic Imaging Report ---
INDICATION: Fall. COMPARISON: October 25, 2016. TECHNIQUE: Single frontal radiograph of the chest dated July 28, 2017. FINDINGS: Postsurgical changes within the cervical and thoracic spine. The cardiac silhouette remains mildly enlarged. Mild tortuosity of the thoracic aorta. No pulmonary vascular congestion. The lungs are clear. No pleural effusion. No pneumothorax. Vertebroplasty changes within the lower thoracic spine. No acute osseous abnormality. IMPRESSION: Mild cardiomegaly and postsurgical changes without acute cardiopulmonary abnormality. Dictated by: Dictated on workstation # [id number]
--- NOTE | 2017-07-28 19:05 | Diagnostic Imaging Report ---
INDICATION: Fell with pelvic and lower back pain. COMPARISON STUDY: Lumbar spine from 10/24/2016. FINDINGS: AP view of the pelvis demonstrates no fracture or diastasis. Degenerative changes again seen in the lower lumbar spine. IMPRESSION: There are no acute findings. Dictated by: Dictated on workstation # [id number]
--- NOTE | 2017-07-28 19:21 | Diagnostic Imaging Report ---
PROCEDURE: CT head and CT cervical spine without contrast. TECHNIQUE: Multiple contiguous axial images were obtained through the brain and cervical spine without the use of intravenous contrast. Sagittal and coronal reformations through the cervical spine were then performed. INDICATION: Fall, hit head. COMPARISON: January 23, 2016. FINDINGS: No intracranial hemorrhage. No intracranial mass, mass effect, midline shift, herniation, hydrocephalus, or extra-axial fluid collection. No CT evidence of an acute ischemic infarction. The bilateral ocular lenses are absent. The calvarium and extracalvarial soft tissues are unremarkable. Posterior decompression of C4, C5, and C6 with anterior plate and screw fixation of C3 through C7. Posterior fusion is also identified. No evidence of hardware complication. Alignment of the cervical spine is stable and well maintained. Alignment of the atlanto-occipital joint is well maintained. No evidence of an acute compression deformity. Disc spaces appear stable from the prior examination. No acute fracture or dislocation. No destructive osseous process. Scattered uncovertebral joint hypertrophy with resultant multilevel neuroforaminal stenosis, similar to the prior examination. Scattered vascular calcifications. The airway remains patent. No apical pneumothorax. 0.8 cm lymph node within the left neck immediately inferior to the left mandible and anterior to the submandibular gland is identified which appears slightly more prominent than in 2016. IMPRESSION: 1. No acute intracranial abnormality. 2. No acute osseous abnormality within the cervical spine with extensive postsurgical changes, as described above. There is resulting multilevel neuroforaminal stenosis. 3. Lymph node immediately inferior to the mandible on the left has mildly increased in size since the prior examination in January 2016. This is of uncertain etiology. This may simply be reactive in nature, though infiltrative process is not totally excluded. Dictated by: Dictated on workstation # [id number]
[2017-07-28] MEDS ORDERED: KETOROLAC 30 MG/ML VIAL ONE (19:39)
[2017-07-28] MEDS ORDERED: KETOROLAC 30 MG/ML VIAL IVP ONE (19:45)
[2017-07-28] MEDS ORDERED: CEPH-507 PO (19:49)
[2017-07-28 19:53] VITALS: BP 137/78
== END 2017-07-28 19:53 | disposition home or self-care (01) ==
LOC: EDUNIT# 16:55 → ER 16:57
DX: S01.01XA Laceration without foreign body of scalp, initial encounter (principal); J44.1 Chronic obstructive pulmonary disease with (acute) exacerbation; N39.0 Urinary tract infection, site not specified; R91.1 Solitary pulmonary nodule; M81.0 Age-related osteoporosis without current pathological fracture; F41.9 Anxiety disorder, unspecified; F17.210 Nicotine dependence, cigarettes, uncomplicated; Z82.49 Family history of ischemic heart disease and other diseases of the circulatory system; Z88.5 Allergy status to narcotic agent; Z87.01 Personal history of pneumonia (recurrent); W01.190A Fall on same level from slipping, tripping and stumbling with subsequent striking against furniture, initial encounter
CPT/HCPCS: 36415; 70450; 71045; 72125; 72170; 80053; 80320; 81000; 85025; 87077; 87088; 87186; 94640; 94664

== ENCOUNTER → 2017-10-18 | Outpatient (CLI) | payer OTHER ==
[~2017-10-18] MED LIST changes: +CEPH-507 PO
--- NOTE | 2017-10-18 09:36 | Diagnostic Imaging Report ---
PROCEDURE: CT chest without contrast. TECHNIQUE: Multiple contiguous axial images were obtained through the chest without the use of intravenous contrast. INDICATION: Lung mass. Study compared 04/05/2017 as well as 12/25/2016. Previously a 7.4 mm ovoid nodule within the anteromedial aspect of the left lung base within the lingular segment of the left upper lobe. At that site we now note some subpleural atelectasis but a measurable soft tissue density ovoid nodule itself is no longer identified. Along the major fissure posteriorly in the left upper lobe was some partial atelectasis. No findings of pneumonia. No new or suspicious lung mass. There is no evidence for lymphadenopathy and no effusion or pneumothorax. IMPRESSION: Subsegmental atelectatic changes in the left upper lobe, predominantly para fissural as well as in the base anteromedially however, the previously noted 7 mm ovoid soft tissue density nodule itself is no longer identified. No suspicious finding. No adenopathy. No effusion. No pneumothorax. Dictated by: Dictated on workstation # [id number]
== END ==
LOC: RAD 09:14
PROVIDERS: ATTEND Internal Medicine Critical Care Medicine
DX: J98.11 Atelectasis (principal); R91.8 Other nonspecific abnormal finding of lung field
CPT/HCPCS: 71250

== ENCOUNTER → 2017-11-05 | Outpatient (CLI) | payer OTHER ==
[~2017-11-05] VITALS: Ht 172.7 cm; Wt 87.1 kg
[~2017-11-05] MED LIST changes: +CATHETER FLUSH 10 ML SYR IV PRN; +REGADENOSON 0.4 MG/5 ML SYR (LEXISCAN) IV ONE
[2017-11-05 08:58] VITALS: BP 151/98
[2017-11-05 09:07] VITALS: BP 154/92
--- NOTE | 2017-11-07 20:24 | STRESS TEST ---
DATE OF SERVICE: 11/05/2017 RESTING AND POST REGADENOSON TECHNETIUM-99M TETROFOSMIN SPECT CT IMAGING ORDERING PHYSICIAN: MAHESH MADRIGAL PRIMARY PHYSICIAN: Dr. Man. OTHER PHYSICIAN: Dr. Paredes. CLINICAL DIAGNOSIS: Shortness of breath, tobacco use, multifocal atrial tachycardia. Baseline images were carried out after injection of 10.73 mCi of technetium-99m Tetrofosmin. This was followed by 0.4 mg regadenoson and 28.8 mCi of technetium-99m Tetrofosmin for stress imaging. The electrocardiogram showed sinus rhythm with right bundle branch block and isolated premature ventricular contractions. The electrocardiogram did not change significantly with the regadenoson infusion. She noted some flushing feeling following regadenoson infusion, which resolved in a few minutes. Review of images at rest and following stress does not indicate any significant perfusion defects consistent with significant myocardial ischemia or infarction. Gated images show normal global left ventricular systolic function and normal regional wall motion. Left ventricular ejection fraction is calculated to be 69%. Left ventricular end diastolic volume is 55 mL. TID is absent (0.95). CONCLUSION: 1. No evidence of any significant myocardial ischemia or infarction on this study. 2. Normal regional wall motion. 3. Normal global left ventricular systolic function with a calculated ejection fraction of 69%. Job ID: [id number] DocumentID: [id number] Dictated Date: 11/07/2017 15:34:10 Otolaryngology Teacher Date: 11/07/2017 20:24:01 Dictated By: BRIDGER PAREDES MD, MA, FACP, FACC,
== END ==
LOC: RAD 10-20 12:10
PROVIDERS: ATTEND Nurse Practitioner Family
DX: I47.1 Supraventricular tachycardia (principal); J44.9 Chronic obstructive pulmonary disease, unspecified; Z86.79 Personal history of other diseases of the circulatory system; E66.8 Other obesity; Z72.0 Tobacco use
CPT/HCPCS: 78452; 93017

== ENCOUNTER 2017-11-18 10:00 | Outpatient (RCR) | payer OTHER ==
[2017-09-16 09:55] VITALS: BP 116/80
[2017-09-16 11:03] VITALS: BP 104/80
[2017-09-21 09:55] VITALS: BP_SYST 104; BP_SYST 115; BP_DIAS 50; BP_DIAS 80
[2017-09-21 11:00] VITALS: BP 111/70
[2017-09-28 09:55] VITALS: BP 100/60
[2017-09-30 10:05] VITALS: BP 118/78
[2017-09-30 11:05] VITALS: BP 110/72
[2017-10-05 10:10] VITALS: BP 106/70
[2017-10-05 11:00] VITALS: BP 118/70
[2017-10-07 10:00] VITALS: BP 124/82
[2017-10-07 11:00] VITALS: BP 102/70
[2017-10-12 10:00] VITALS: BP 97/60
[2017-10-12 10:53] VITALS: BP 140/60
[2017-10-14 09:45] VITALS: BP 118/60
[2017-10-14 10:45] VITALS: BP 125/60
[2017-10-19 10:55] VITALS: BP 100/60
[2017-10-21 10:00] VITALS: BP 128/60
[2017-10-21 11:00] VITALS: BP 122/82
[2017-10-28 10:05] VITALS: BP 122/78
[2017-10-28 11:00] VITALS: BP 118/86
[2017-11-02 10:00] VITALS: BP 120/60
[2017-11-02 11:00] VITALS: BP 125/80
[2017-11-04 10:00] VITALS: BP 120/88
[2017-11-04 11:00] VITALS: BP 140/60
[2017-11-09 09:00] VITALS: BP 96/77
[2017-11-09 10:55] VITALS: BP 98/70
[2017-11-11 09:55] VITALS: BP 130/70
[2017-11-11 11:00] VITALS: BP 126/82
[2017-11-16 10:00] VITALS: BP 120/68
[2017-11-16 10:55] VITALS: BP 150/60
[2017-11-18 10:00] VITALS: BP 118/80
[~2017-11-18 10:00] MED LIST changes: -CATHETER FLUSH 10 ML SYR IV PRN; -REGADENOSON 0.4 MG/5 ML SYR (LEXISCAN) IV ONE
[2017-11-18 10:50] VITALS: BP 108/60
[2017-11-23 09:30] VITALS: BP 90/60
[2017-11-23 10:30] VITALS: BP 102/70
== END 2017-11-21 | disposition home or self-care (01) ==
LOC: PULM 10:00
PROVIDERS: ATTEND Internal Medicine
DX: J44.9 Chronic obstructive pulmonary disease, unspecified (principal); Z99.81 Dependence on supplemental oxygen
CPT/HCPCS: 93005; 99211

== ENCOUNTER 2017-11-22 10:00 | Outpatient (RCR) | payer OTHER ==
[2017-11-25 08:55] VITALS: BP 91/70
[2017-11-25 11:00] VITALS: BP 118/70
== END 2017-12-14 | disposition home or self-care (01) ==
LOC: PULM 10:00
PROVIDERS: ATTEND Internal Medicine
DX: J44.9 Chronic obstructive pulmonary disease, unspecified (principal); Z99.81 Dependence on supplemental oxygen

== ENCOUNTER → 2018-04-18 | Outpatient (CLI) | payer OTHER ==
--- NOTE | 2018-04-18 12:06 | Diagnostic Imaging Report ---
PROCEDURE: CT chest without contrast. TECHNIQUE: Multiple contiguous axial images were obtained through the chest without the use of intravenous contrast. INDICATION: Lung nodules, followup. Comparison is made with prior CT from 10/18/2017. No axillary lymphadenopathy is seen. No definite hilar or mediastinal lymphadenopathy is seen. No pericardial or pleural fluid is identified. Minimal subpleural scarring in the right upper lobe posterior medial is seen, similar to prior exam. Previously noted partial atelectasis along the major fissure in the left upper lobe has improved. There continues to be some subpleural scarring or atelectasis in the anteromedial lingula. There may be some slight increase in amount of atelectasis or infiltrate in the posterior aspect of the lingula on today's study. Again no measurable nodule is seen on today's study. There is a tiny nodule in the right middle lobe which appears stable at approximately 3 mm. Bibasilar subsegmental atelectasis or scarring is noted in the lower lobes posteriorly. Upper abdomen is unremarkable. IMPRESSION: Fairly stable noncontrast CT chest. Again no definite measurable nodule is identified in the lingula. There is a tiny 3 mm right middle lobe nodule. Partial atelectasis of the lingula is seen, as described. No other abnormalities detected. Dictated by: Dictated on workstation # [id number]
== END ==
LOC: RAD 10:09
PROVIDERS: ATTEND Nurse Practitioner Family
DX: J44.9 Chronic obstructive pulmonary disease, unspecified (principal); R91.8 Other nonspecific abnormal finding of lung field; J98.11 Atelectasis; Z72.0 Tobacco use
CPT/HCPCS: 71250

== ENCOUNTER → 2018-05-12 | Outpatient (CLI) | payer OTHER ==
--- NOTE | 2018-05-12 12:31 | Diagnostic Imaging Report ---
INDICATION: Routine screening. COMPARISON: Comparison is made with prior mammograms from 05/06/2017 and 05/05/2016. TECHNIQUE: 2D and 3D bilateral screening mammography was performed with computer-aided detection (CAD) system. FINDINGS: Both breasts are heterogeneously dense, limiting the sensitivity of mammography. No dominant mass or malignant-appearing microcalcifications are seen. There are benign calcifications bilaterally. The axillae are unremarkable. IMPRESSION: No mammographic features suspicious for malignancy are identified. ACR BI-RADS Category 2: Benign findings. Result letter will be mailed to the patient. Note: At least 10% of breast cancer is not imaged by mammography. Dictated by: Dictated on workstation # [id number]
== END ==
LOC: RAD 09:46
PROVIDERS: ATTEND Internal Medicine
DX: Z12.31 Encounter for screening mammogram for malignant neoplasm of breast (principal)
CPT/HCPCS: 77067

== ENCOUNTER 2018-10-03 15:29 | Inpatient (IN) | payer OTHER ==
[~2018-10-03] VITALS: Ht 177.8 cm; Wt 104.8 kg
[~2018-10-03 15:29] MED LIST changes: -ALPR1TAB7 PO; -CELE100C84 PO; -GABA-488 PO; -HYDR-3820 PO; -IBUP1TAB14 PO; -PRD20T PO; -TIOT18CA2 IH
[2018-10-03] MEDS ORDERED: KETOROLAC 30 MG/ML VIAL ONE (17:05)
[2018-10-03 17:29] VITALS: BP 124/81
[2018-10-03] MEDS ORDERED: RT-ALBUTEROL/IPRATROPIUM 3 ML (DUONEB) VIAL INH ONE (17:30)
[2018-10-03] MEDS ORDERED: cefTRIAXone FOR IV USE 1,000 MG in WATER (STERILE) FOR INJECTION 10 ML IV ONE (17:30)
[2018-10-03] MEDS ORDERED: KETOROLAC 30 MG/ML VIAL IVP ONE (17:30)
--- NOTE | 2018-10-03 17:31 | ED Neurological Problem ---
General Chief Complaint: Altered Mental Status Stated Complaint: ALTERED MENTAL STATUS Nursing Triage Note: PT CAME TO ER AFTER HAVING BLOOD WORK DRAWN BY DR DOMINIQUE OFFICE THIS AFTERNOON. PT WAS TOLD TO COME TO ED FOR INCREASED CO2 LEVELS. PTS REPORTS PT HAS HAD ALTERED MENTAL STATUS FOR ABOUT 1 WEEK AND HAS GOTTEN WORSE. PT WAS SEEN BY URGENT CARE PRIOR TO DR DOMINIQUE OFFICE VISIT. Nursing Sepsis Screen: No Definite Risk Source: patient Exam Limitations: no limitations History of Present Illness Date Seen by Provider: October 03, 2018 Time Seen by Provider: 17:31 Initial Comments To ER with reports of increasing confusion over the past week. states this happened once before and it was a bladder infection. At the onset of this she was diagnosed with a bladder infection at [facility], given antibiotics but failed to improve. Does have a history of COPD and is oxygen dependent. Saw Dr. Man today had outpatient labs drawn and was noted to have a CO2 level on the ABG of 73. Remainder of labs unremarkable. states that she's having trouble walking Timing/Duration: 1 week, increasing Severity: moderate Associated Symptoms: confusion Allergies and Home Medications Allergies Coded Allergies: morphine (Unverified Adverse Reaction, Mild, RASH, 10/03/18) Home Medications Alendronate Sodium 70 Mg Tablet, 70 MG PO WEEK Prescribed by: AUGUSTUS MAN on 10/28/16 08 Aripiprazole 5 Mg Tablet, 5 MG PO DAILY, (Reported) Cefdinir 300 Mg Capsule, 300 MG PO BID Prescribed by: AUGUSTUS MAN on 10/28/16 0820 Cephalexin 500 Mg Capsule, 500 MG PO QID Prescribed by: MARCIANO PAUL on 07/28/171948 Duloxetine HCl 30 Mg Capsule.dr, 30 MG PO DAILY, (Reported) TAKES ALONG WITH DULOXETINE 60 MG Duloxetine HCl 60 Mg Capsule.dr, 60 MG PO DAILY, (Reported) TAKES ALONG WITH DULOXETINE 30 MG Folic Acid/Multivits-Min/Lut 1 Each Tab.chew, 1 TAB PO DAILY, (Reported) Furosemide 40 Mg Tablet, 40 MG PO DAILY PRN for FLUID RETENTION, (Reported) Gabapentin 100 Mg Capsule, 100 MG PO TID, (Reported) Hydrocodone Bit/Acetaminophen 1 Each Tablet, 1 TAB PO Q4H PRN for PAIN, (Reported) Lorazepam 1 Mg Tablet, 1 MG PO Q6H PRN for ANXIETY, (Reported) Meloxicam 15 Mg Tablet, 15 MG PO DAILY, (Reported) Potassium Chloride 20 Meq Tab.er.prt, 40 MEQ PO DAILY PRN for WITH FUROSEMIDE , (Reported) TAKES 2 (20 MEQ) TABLETS Patient Home Medication List Home Medication List Reviewed: Yes Review of Systems Review of Systems Constitutional: see HPI Eyes: No Symptoms Reported Ears, Nose, Mouth, Throat: no symptoms reported Respiratory: no symptoms reported Cardiovascular: no symptoms reported Genitourinary: no symptoms reported Musculoskeletal: see HPI Skin: no symptoms reported Psychiatric/Neurological: No Symptoms Reported Past Bkocscq-Jyzsgb-Shbfxx Hx Patient Social History Alcohol Use: Denies Use Recreational Drug Use: No Smoking Status: Former Smoker Type Used: Cigarettes Former Smoker, Quit: Mar 17, 2018 2nd Hand Smoke Exposure: No Recent Foreign Travel: No Contact w/Someone Who Travel: No Recent Infectious Disease Expo: No Recent Hopitalizations: No Physical Abuse: No Sexual Abuse: No Mistreated: No Fear: No Immunizations Up To Date Tetanus Booster (TDap): Less than 5yrs Date of Pneumonia Vaccine: Jul 24, 2016 Date of Influenza Vaccine: Feb 17, 2017 Seasonal Allergies Seasonal Allergies: No Past Medical History Orthopedic Respiratory: Yes COPD Cardiac: No Neurological: No Reproductive Disorders: No Female 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 Genitourinary: No Gastrointestinal: No Musculoskeletal: Yes Arthritis, Chronic Back Pain Endocrine: No HEENT: No Loss of Vision: Bilateral Hearing Impairment: Denies Cancer: No Psychosocial: No Anxiety Integumentary: No Blood Disorders: No Adverse Reaction/Blood Tranf: No Family Medical History Breas 19 MOTHER Congenital heart disease 19 FATHER 19 MOTHER Hypertension 19 FATHER 19 MOTHER Myocardial infarction 19 MOTHER Prostate cancer 19 FATHER Physical Exam Vital Signs Vital Signs - First Documented 10/03/18 15:52 Temp 97.3 Pulse 96 Resp 11 B/P (MAP) 143/66 (91) Pulse Ox 92 O2 Delivery Nasal Cannula O2 Flow Rate 2.00 Capillary Refill : Less Than 3 Seconds Height, Weight, BMI Height: 5'10.00" Weight: 200lbs. 0.00oz. 90.180857ln; 0.0 BMI Method:Stated General Appearance: WD/WN, no apparent distress, other (she is alert, she knows where she is at and why she is here, she is aware that she's been confused over the past few days.) HEENT: PERRL/EOMI, normal ENT inspection Neck: non-tender, full range of motion Respiratory: no respiratory distress, no accessory muscle use, decreased breath sounds Gastrointestinal: normal bowel sounds, soft Neurologic/Psychiatric: alert Crainal Nerves: normal hearing, normal speech, PERRL Procedures/Interventions Suture Size: 5-0 Progress/Results/Core Measures Results/Orders My Orders Orders - KIM WEBSTER APRN Chest 1 View, Ap/Pa Only (10/03/18 16:03) Ed Iv/Invasive Line Start (10/03/18 16:03) Blood Culture (10/03/18 16:03) Lactic Acid Analyzer (10/03/18 16:03) Ketorolac Injection (Toradol Injection) (10/03/18 17:05) Ct Head Wo (10/03/18 17:23) Ua Culture If Indicated (10/03/18 17:24) Ceftriaxone For Iv Use (Rocephin For I (10/03/18 17:30) Albuterol/Ipra Inhalation Soln (Duoneb I (10/03/18 17:30) Ketorolac Injection (Toradol Injection) (10/03/18 17:30) Svn Small Volume Nebulizer (10/03/18 17:24) Medications Given in ED Current Medications Medications Dose Ordered Sig/Denise Route Start Time Stop Time Status Last Admin Dose Admin Ketorolac Tromethamine 30 mg STK-MED ONCE .ROUTE 10/03/18 17:05 10/03/18 17:10 DC 10/03/18 17:14 30 MG Vital Signs/I&O 10/03/18 10/03/18 15:52 16:15 Temp 97.3 97.3 Pulse 96 93 Resp 11 18 B/P (MAP) 143/66 (91) 133/84 (100) Pulse Ox 92 92 O2 Delivery Nasal Cannula O2 Flow Rate 2.00 2.00 Blood Pressure Mean: 95 Progress Progress Note : Progress Note NAME: MELY MOREIRA MED REC#: [id number] PT STATUS: REG ER : 1955 PHYSICIAN: KIM WEBSTER APRN ADMIT DATE: 10/03/18/ER Draft Date of Exam:10/03/18 CHEST 1 VIEW, AP/PA ONLY INDICATION: Hypercapnia and altered mental status. EXAM: Portable AP upright view of the chest is obtained. FINDINGS: Heart size and pulmonary vascularity are within normal limits. There is mild air trapping in the upper lobes. There may be linear atelectasis or scarring in the left base however no consolidation is seen. Surgical findings are noted in the cervical spine. IMPRESSION: Slight left basilar atelectasis and/or scarring with probable background emphysema. Dictated on workstation # [id number] Dict: 10/03/18 1731 Trans: 10/03/18 1736 [facility] [id number] Interpreted by: HUGO WOO MD Electronically signed by: Departure Communication (Admissions) Discussed a BiPAP with the patient, she states that she is claustrophobic and does not want to wear 1. Discussed with Dr. Bryant, we will do mat protocol, avoid BiPAP for the time being as her pH is not for normal. Requesting for something for pain in her low back Impression Primary Impression: Acute on chronic respiratory failure Qualified Codes: J96.22 - Acute and chronic respiratory failure with hypercapnia Disposition: 09 ADMITTED INPATIENT Condition: Stable Admissions Decision to Admit Reason: Admit from ER (General) Decision to Admit/Date: October 03, 2018 Time/Decision to Admit Time: 17:41 Departure-Patient Inst. Referrals: AUGUSTUS MAN MD (PCP/Family) Primary Care Physician KIM WEBSTRE APRN October 03, 2018 17:31
--- NOTE | 2018-10-03 17:37 | Diagnostic Imaging Report ---
INDICATION: Hypercapnia and altered mental status. EXAM: Portable AP upright view of the chest is obtained. FINDINGS: Heart size and pulmonary vascularity are within normal limits. There is mild air trapping in the upper lobes. There may be linear atelectasis or scarring in the left base however no consolidation is seen. Surgical findings are noted in the cervical spine. IMPRESSION: Slight left basilar atelectasis and/or scarring with probable background emphysema. Dictated by: Dictated on workstation # [id number]
[2018-10-03 17:45] LABS: BILIRUBIN,URINE NEGATIVE (NEGATIVE); CLARITY,URINE CLEAR; COLOR,URINE YELLOW; GLUCOSE, URINE (UA) NEGATIVE (NEGATIVE); KETONES,URINE NEGATIVE (NEGATIVE); LEUKOCYTE ESTERASE ,URINE 2+ (NEGATIVE); NITRITE,URINE NEGATIVE (NEGATIVE); PH,URINE 6 (5-9); PROTEIN,URINE 1+ (NEGATIVE); UROBILINOGEN,URINE 4 MG/DL (NORMAL)
[2018-10-03 18:11] LABS: BACTERIA,URINE FEW /HPF; RBC,URINE RARE /HPF
[2018-10-03 18:12] LABS: CALCIUM OXALATE CRYSTALS,UR FEW /LPF
--- NOTE | 2018-10-03 18:38 | Diagnostic Imaging Report ---
PROCEDURE: CT head without contrast. TECHNIQUE: Multiple contiguous axial images were obtained through the brain without the use of intravenous contrast. Auto Exposure Controls were utilized during the CT exam to meet ALARA standards for radiation dose reduction. INDICATION: Altered mental status. COMPARISON: CT head without contrast 07/17/2014. FINDINGS: No intracranial hemorrhage, mass effect, hydrocephalus or extra axial fluid collections. No CT evidence for territorial infarction. Osseous structures are intact. Mild mucosal thickening in the ethmoid sinuses. Partially visualized air-fluid level in the left maxillary sinus. Mastoids are clear. IMPRESSION: 1. No acute intracranial CT findings. 2. Partially visualized paranasal sinus disease as above. Dictated by: Dictated on workstation # [id number]
[2018-10-03] MEDS ORDERED: ACETAMINOPHEN 325 MG TABLET PO ONE (18:45)
[2018-10-03] MEDS ORDERED: CATHETER FLUSH 10 ML SYR IV PRN (19:30)
[2018-10-03] MEDS ORDERED: ACETAMINOPHEN 325 MG TABLET PO PRN (19:30)
[2018-10-03 20:00] VITALS: BP 109/66
[2018-10-03] MEDS: CATHETER FLUSH 10 ML SYR IV SCH (20:15)
[2018-10-03] MEDS: methylPREDNISolone 125 MG (Solu-MEDROL) VIAL IV SCH (20:15)
[2018-10-03] MEDS ORDERED: RT-ALBUTEROL/IPRATROPIUM 3 ML (DUONEB) VIAL ONE (21:55)
[2018-10-03] MEDS: RT-ALBUTEROL/IPRATROPIUM 3 ML (DUONEB) VIAL INH SCH (21:59)
[2018-10-04] VITALS (7 sets, daily range): BP systolic 125–151; BP diastolic 57–78
[2018-10-04] MEDS: methylPREDNISolone 125 MG (Solu-MEDROL) VIAL IV SCH ×2 (00:19→05:31)
[2018-10-04] MEDS: RT-ALBUTEROL/IPRATROPIUM 3 ML (DUONEB) VIAL INH SCH ×6 (02:54→22:20)
[2018-10-04] MEDS: CATHETER FLUSH 10 ML SYR IV SCH ×3 (05:31→22:14)
--- NOTE | 2018-10-04 09:37 | NUR ---
DR JEFFERS NOTIFIED OF CONSULT.
[2018-10-04] MEDS ORDERED: DULoxetine 30 MG (CYMBALTA) CAP PO NR (09:57)
[2018-10-04 10:02] LABS: ABG OXYGEN SATURATION 93 % (94-100); ABG PCO2 50 MMHG (35-45); ABG PH 7.44 (7.37-7.43); ABG PO2 61 MMHG (79-93); ABG TCO2 34.9 MMOL/L (21.0-31.0)
[2018-10-04 10:09] LABS: ALLENS TEST YES-POS; INSPIRED O2 3; VENTILATOR NO
[2018-10-04] MEDS ORDERED: HYDR-3820 PO (10:51)
[2018-10-04] MEDS ORDERED: CELE100C84 PO (10:51)
[2018-10-04] MEDS ORDERED: GABA-488 PO (10:51)
[2018-10-04] MEDS ORDERED: ALPR1TAB7 PO (10:51)
[2018-10-04] MEDS ORDERED: TIOT18CA2 IH (10:52)
[2018-10-04] MEDS ORDERED: IBUP1TAB14 PO (10:53)
--- NOTE | 2018-10-04 10:54 | NUR ---
WENT OVER THE EXT MED HX WITH THE PATIENTS , HE VERIFIED HOW SHE TAKES EACH MEDICATION. SHE IS ONLY TAKING ONE STRENGTH OF CYMBALTA CURRENTLY, NOT BOTH DOSES ANYMORE.
--- NOTE | 2018-10-04 11:32 | Pulmonary Consultation ---
History of Present Illness History of Present Illness Date of Consultation 10/04/18 11:27 Time Seen by Provider: 11:27 Date of Admission History of Present Illness 63yo with hx of COPD, lung nodules, chronic pain presented from Dr. Man's office yesterday to ED secondary to worsening hypoxia, and MS changes over the last week. Quit smoking in 2018. ABG on admission showed C02 73. PT refused BiPA P on admission. she was started on solumedrol and breathing treatment. Allergies and Home Medications Allergies Coded Allergies: morphine (Unverified Adverse Reaction, Mild, RASH, 10/03/18) Home Medications Alprazolam 1 Mg Tablet, 1 MG PO Q8H PRN for ANXIETY, (Reported) Aripiprazole 5 Mg Tablet, 5 MG PO DAILY, (Reported) Celecoxib 100 Mg Capsule, 100 MG PO BID, (Reported) Duloxetine HCl 60 Mg Capsule.dr, 60 MG PO DAILY, (Reported) Gabapentin 300 Mg Capsule, 300 MG PO TID PRN for NEUROPATHY PAIN, (Reported) Hydrocodone/Acetaminophen 1 Each Tablet, 1 TAB PO Q4H PRN for PAIN-MODERATE, (Reported) Ibuprofen/Diphenhydramine Cit 1 Each Tablet, 1 TAB PO HS PRN for SLEEP, (Reported) Tiotropium [place] 1 Inh Aerp, 1 CAP IH DAILY PRN for SHORTNESS OF BREATH, (Reported) Past Xmgyhzy-Hfiaqy-Ngashd Hx Patient Social History Alcohol Use: Denies Use Recreational Drug Use: No Smoking Status: Former Smoker Type Used: Cigarettes Former Smoker, Quit: Mar 17, 2018 2nd Hand Smoke Exposure: No Recent Foreign Travel: No Contact w/Someone Who Travel: No Recent Infectious Disease Expo: No Recent Hopitalizations: No Physical Abuse: No Sexual Abuse: No Mistreated: No Fear: No Immunizations Up To Date Tetanus Booster (TDap): Less than 5yrs Date of Pneumonia Vaccine: Jul 24, 2016 Date of Influenza Vaccine: Feb 17, 2017 Seasonal Allergies Seasonal Allergies: No Past Medical History Orthopedic Respiratory: Yes COPD Cardiac: No Neurological: No Reproductive Disorders: No Female Reproductive Disorders: Denies DRILLING FIELD PROFESSIONAL History: Menopausal Genitourinary: No Gastrointestinal: No Musculoskeletal: Yes Arthritis, Chronic Back Pain Endocrine: No HEENT: No Loss of Vision: Bilateral Hearing Impairment: Denies Cancer: No Psychosocial: No Anxiety Integumentary: No Blood Disorders: No Adverse Reaction/Blood Tranf: No Family Medical History Breas 19 MOTHER Congenital heart disease 19 FATHER 19 MOTHER Hypertension 19 FATHER 19 MOTHER Myocardial infarction 19 MOTHER Prostate cancer 19 FATHER Review of Systems Time Seen by Provider: 11:30 Constitutional: Weakness, Malaise; No: Fever, Chills, Sweats, Other Eyes: No: Pain, Vision change, Conjunctivae inflammation, Eyelid inflammation, Other, Redness ENT: Nose congestion; No: Ear pain, Ear discharge, Nose pain, Nose discharge, Mouth pain, Mouth swelling, Throat pain, Throat swelling, Other Respiratory: Cough, Dry, Shortness of breath, SOB with excertion, Wheezing; No: Hemoptysis Cardiovascular: Paroxysmal Noc. Dyspnea; No: Chest Pain, Palpitations, Orthopnea, Edema, Lt Headedness, Other Gastrointestinal: No: Nausea, Vomiting, Abdominal Pain, Diarrhea, Constipation, Melena, Hematochezia, Other Genitourinary: No Dysuria, No Frequency, No Incontinence, No Hematuria, No Retention, No Other Neurological: Weakness, Confusion Sepsis Event Evaluation Height, Weight, BMI Height: 5'10.00" Weight: 231lbs. 6.0oz. 104.661283dh; 33.1 BMI Method:Stated Exam Exam Vital Signs Date Time Temp Pulse Resp B/P (MAP) Pulse Ox O2 Delivery O2 Flow Rate FiO2 10/04/18 10:00 93 Nasal Cannula 3.00 10/04/18 08:00 93 Nasal Cannula 3.00 10/04/18 08:00 99.0 105 20 151/74 (99) 95 Nasal Cannula 10/04/18 04:00 98.0 88 20 134/75 (94) 95 Nasal Cannula 10/04/18 02:57 89 Nasal Cannula 2.00 10/04/18 00:00 97.9 97 20 125/78 (94) 93 Nasal Cannula 10/03/18 22:00 94 Nasal Cannula 2.00 10/03/18 20:00 97.5 91 18 109/66 (80) Nasal Cannula 4.00 10/03/18 19:00 Nasal Cannula 4.00 10/03/18 18:55 98.0 93 16 144/89 (107) 100 4.00 10/03/18 17:29 98 22 124/81 (95) 97 4.00 10/03/18 16:15 97.3 93 18 133/84 92 2.00 10/03/18 16:15 97.3 93 18 133/84 (100) 92 2.00 10/03/18 15:52 97.3 96 11 143/66 (91) 92 Nasal Cannula 2.00 I & O 10/04/18 07:00 Intake Total 110 ml Balance 110 ml Height & Weight Height: 5'10.00" Weight: 231lbs. 6.0oz. 104.034602de; 33.1 BMI Method:Stated General Appearance: No Apparent Distress, WD/WN, Chronically ill, Obese HEENT: PERRL/EOMI, Normal ENT Inspection, Pharynx Normal Neck: Full Range of Motion, Normal Inspection, Non Tender, Supple Respiratory: Chest Non Tender, No Accessory Muscle Use, No Respiratory Distress, Decreased Breath Sounds Cardiovascular: Regular Rate, Rhythm, No Edema, No Gallop, No JVD, No Murmur Capillary Refill: Less Than 3 Seconds Gastrointestinal: normal bowel sounds, soft Extremity: No Pedal Edema Neurologic/Psychiatric: Alert, Oriented x3 Skin: Normal Color, Warm/Dry Lymphatic: No Adenopathy Assessment/Plan Assessment/Plan Acute on chronic respiratory failure COPDAE -Solumedrol - change to 40 Q6 -ABG is improved today -Continue Duonebs Q4 -Oxygen - pt has oxygen at 3 liters 24/7 MS changes probably secondary to hypoxia Morbid obesity CARLINE JEFFERS DO October 04, 2018 11:32
[2018-10-04] MEDS: methylPREDNISolone 40 MG/ML (Solu-MEDROL) VIAL IV SCH ×3 (12:02→23:41)
[2018-10-04 12:16] LABS: BASOPHILS % (AUTO) 0 % (0-10); EOSINOPHILS % (AUTO) 0 % (0-10); HEMATOCRIT 38 % (35-52); HEMOGLOBIN 11.6 G/DL (11.5-16.0); LYMPHOCYTES # (AUTO) 0.5 X 10^3 (1.0-4.0); LYMPHOCYTES % (AUTO) 9 % (12-44); MEAN CORPUSCULAR HEMOGLOBIN 28 PG (25-34); MEAN CORPUSCULAR HGB CONC 31 G/DL (32-36); MEAN CORPUSCULAR VOLUME 91 FL (80-99); MEAN PLATELET VOLUME 10.4 FL (7.4-10.4); MONOCYTES # (AUTO) 0.2 X 10^3 (0.0-1.0); MONOCYTES % (AUTO) 3 % (0-12); NEUTROPHILS # (AUTO) 5.2 X 10^3 (1.8-7.8); NEUTROPHILS % (AUTO) 88 % (42-75); PLATELET COUNT 265 10^3/uL (130-400); RED CELL DISTRIBUTION WIDTH 13.7 % (10.0-14.5)
[2018-10-04 12:31] LABS: ALANINE AMINOTRANSFERASE 12 U/L (0-55); ALBUMIN 4.2 GM/DL (3.2-4.5); ALKALINE PHOSPHATASE 95 U/L (40-136); BILIRUBIN,TOTAL 0.3 MG/DL (0.1-1.0); BUN/CREATININE RATIO 16; CALCIUM 10.6 MG/DL (8.5-10.1); CARBON DIOXIDE 27 MMOL/L (21-32); CHLORIDE 100 MMOL/L (98-107); CREATININE SERUM 0.73 MG/DL (0.60-1.30); GFR ESTIMATED > 60; GLUCOSE 156 MG/DL (70-105); PHOSPHORUS 1.1 MG/DL (2.3-4.7); POTASSIUM 3.5 MMOL/L (3.6-5.0); SODIUM 144 MMOL/L (135-145); TOTAL PROTEIN 7.8 GM/DL (6.4-8.2)
[2018-10-04 12:46] LABS: BAND NEUTROPHILS 1 %; LYMPHOCYTES % (MANUAL) 6 %; MONOCYTES % (MANUAL) 2 %; NEUTROPHILS % (MANUAL) 91 %
--- NOTE | 2018-10-04 12:59 | History & Physical-Hospitalist ---
History of Present Illness HPI/Chief Complaint The patient is a 63-year-old white female known to this provider with a long- standing history of COPD with chronic hypercapnia due to underlying tobaccoism. She was apparently in her usual state of health until sometime over the weekend with the noted she was confused somewhat slurred speech with no evidence for alcohol use that he could determine nor any known recent drinking. He is in charge of her medication as she is on chronic narcotic therapy and there've been no new medications initiated. He took her to urgent care I believe on Wednesday at which time they felt she had a urinary tract infection. I got a fax report that she was growing Escherichia coli only 30-50,000 colony-forming units with mullins sensitivity and no UA or other lab studies. She had not had any reported urinary symptoms such as increased frequency or urgency chills or fever. She was confused so her history was suspect but he had not noted any chills fever or change in appetite. She denied nausea or chest pain and abdominal pain orthopnea or PND. No other pulmonary history a was concerned about acute on chronic hypercapnic respiratory failure so she was sent to the hospital for an ABG which did reveal acute on chronic hypercapnic respiratory failure with a PO2 level in the 70s a pH slightly acidotic at 7.34 and a PO2 of 60 on around 3 L per nasal cannula as I recall. She was sent to the emergency room where there is no obvious evidence for respiratory infection and she was admitted for treatment of acute on chronic hypercapnic respiratory failure initiating bronchodilator therapy and IV steroid therapy. Date Seen 10/04/18 Time Seen by a Provider: 09:00 Attending Physician Amauri Lechuga MD PCP Amauri Lechuga MD Referring Physician Date of Admission October 03, 2018 at 17:26 Home Medications & Allergies Home Medications Reviewed patient Home Medication Reconciliation performed by pharmacy medication reconciliations mri technician and/or nursing. Patients Allergies have been reviewed. Allergies Allergies Coded Allergies morphine (Unverified Adverse Reaction, Mild, RASH, 10/03/18) Past Moqwsqu-Gmbmdq-Ltvavi Hx Past Med/Social Hx: Reviewed and Corrections made Patient Social History Alcohol Use: Denies Use Recreational Drug Use: No Smoking Status: Former Smoker Former Smoker, Quit: Mar 17, 2018 Type Used: Cigarettes 2nd Hand Smoke Exposure: No Physical Abuse Screen: No Sexual Abuse: No Recent Foreign Travel: No Contact w/other who traveled: No Recent Hopitalizations: No Recent Infectious Disease Expo: No Immunizations Up To Date Tetanus Booster (TDap): Less than 5yrs Date of Pneumonia Vaccine: Jul 24, 2016 Date of Influenza Vaccine: Feb 17, 2017 Seasonal Allergies Seasonal Allergies: No Past Medical History Surgeries: Orthopedic Reproductive: No Female Reproductive Disorders: Denies Menopausal Musculoskeletal: Arthritis, Chronic Back Pain Loss of Vision: Bilateral Hearing Impairment: Denies Psychosocial: Anxiety History of Blood Disorders: No Adverse Reaction to Blood Vance: No Family History Breas 19 MOTHER Congenital heart disease 19 FATHER 19 MOTHER Hypertension 19 FATHER 19 MOTHER Myocardial infarction 19 MOTHER Prostate cancer 19 FATHER Review of Systems Constitutional: no symptoms reported, see HPI; No chills, No diaphoresis, No dizziness, No fever, No malaise, No weakness, No weight gain, No weight loss Respiratory: No no symptoms reported; see HPI, cough (She reports that her baseline nonpurulent), dyspnea on exertion (Reportedly about the same); No hemoptysis, No orthopnea, No phlegm, No stridor, No wheezing, No other Cardiovascular: see HPI; No chest pain, No edema, No Hx of Intervention, No palpitations, No syncope, No vascular heart diseas, No other Physical Exam Physical Exam Vital Signs Vital Signs - First Documented 10/03/18 15:52 Temp 97.3 Pulse 96 Resp 11 B/P (MAP) 143/66 (91) Pulse Ox 92 O2 Delivery Nasal Cannula O2 Flow Rate 2.00 Capillary Refill : Less Than 3 Seconds Height, Weight, BMI Height: 5'10.00" Weight: 231lbs. 6.0oz. 104.675969zx; 33.1 BMI Method:Stated General Appearance: No Apparent Distress, Chronically ill HEENT: PERRL/EOMI, Normal ENT Inspection, Pharynx Normal Neck: Full Range of Motion, Normal Inspection, Non Tender Respiratory: Chest Non Tender, No Accessory Muscle Use, No Respiratory Distress, Wheezing (Noted on forced expiration only diminished breath sounds are present posteriorly hyperresonance to percussion no dullness noted) Cardiovascular: No Edema, No Gallop, No JVD, No Murmur, Normal Peripheral Pulses, Other (Appears to be regular with frequent premature disease) Gastrointestinal: Normal Bowel Sounds, No Organomegaly, No Pulsatile Mass, Non Tender, Soft Rectal: Deferred Extremity: Normal Capillary Refill, Normal Inspection, Normal Range of Motion, Non Tender, No Calf Tenderness, No Pedal Edema Neurologic/Psychiatric: Disoriented (Pleasant voicing no complaints intermittently think she still at home no evidence for agitation no focal deficits noted) Skin: Warm/Dry, Pallor Lymphatic: No Adenopathy Results Results/Procedures Labs Laboratory Tests 10/04/18 11:54 Patient resulted labs reviewed. Assessment/Plan Admission Diagnosis A/P 1. Acute on chronic hypercapnic respiratory failure due to past tobaccoism. Patient did quit smoking in 2018 and her corroborates fact that he does not feel that she has had a cigarette since that time. There does not appear to be any infectious cause so we'll continue bronchodilator therapy and anti- inflammatory therapy. The patient has refused BiPAP but her ABG has improved likely back to her baseline state of hypercapnia. As she is still little bit confused with no evidence for infectious encephalopathy. 2. Mild hypercalcemia will obtain a PTH level now. She states that she was scheduled for a repeat CT per . Salena may consider doing this at this hospital stay but they were told to run it by him especially as there is concern for malignancy with her smoking history in light of mild hypercalcemia as well. This may be a contributing factor to her confusion although it is questionable considering a corrected level of 10.6. Admission Status: Inpatient Order (span 2 midnights) Reason for Inpatient Admission: See admission diagnosis. Clinical Quality Measures DVT/VTE Risk/Contraindication: Risk Factor Score Per Nursin RFS Level Per Nursing on Admit: 3=High AMAURI LECHUGA MD October 04, 2018 12:59
[2018-10-04] MEDS ORDERED: POTASSIUM PHOSPHATE INJ 30 MM in NS IV 500 ML 500 ML IV ONE (13:00)
--- NOTE | 2018-10-04 13:59 | Diagnostic Imaging Report ---
Indication: Shortness of breath. PA and lateral chest Heart size and pulmonary vascularity normal. Lungs are clear. There are no effusions or pneumothoraces. Impression: Negative chest. Dictated by: Dictated on workstation # [id number]
[2018-10-04] MEDS ORDERED: POT PHOS/NA PHOS (K-PHOS NEUTRAL) PO NR (15:30)
--- NOTE | 2018-10-04 16:54 | NUR ---
Introduced self to pt and her , Marcos. Pt engaged with appropriate answers to questions, i.e. She is Taoist and her is Christian. Both requested prayer for their daughter, Joanie, who will be having shoulder surgery. Don said the pt has been talking about things that do not make sense to him. Before I closed our visit, the pt said there were [employer] Guadalupe ornaments hanging from the ceiling around her hospital room, pointed to a "picture of a little girl over the window" and said she could see "railroad trophies" on her wall. I communicated this to her nurse.
[2018-10-05] MEDS: RT-ALBUTEROL/IPRATROPIUM 3 ML (DUONEB) VIAL INH SCH ×3 (03:10→10:15)
[2018-10-05 04:43] VITALS: BP 132/73
[2018-10-05] MEDS: methylPREDNISolone 40 MG/ML (Solu-MEDROL) VIAL IV SCH (05:36)
[2018-10-05] MEDS: CATHETER FLUSH 10 ML SYR IV SCH (05:37)
[2018-10-05 06:36] LABS: BUN/CREATININE RATIO 21; CARBON DIOXIDE 26 MMOL/L (21-32); CHLORIDE 102 MMOL/L (98-107); CREATININE SERUM 0.71 MG/DL (0.60-1.30); GFR ESTIMATED > 60; GLUCOSE 137 MG/DL (70-105); PHOSPHORUS 3.1 MG/DL (2.3-4.7); POTASSIUM 3.5 MMOL/L (3.6-5.0); SODIUM 144 MMOL/L (135-145)
[2018-10-05 08:00] VITALS: BP 155/85
[2018-10-05] MEDS ORDERED: PRD20T PO (08:31)
[2018-10-05] MEDS ORDERED: DULoxetine 30 MG (CYMBALTA) CAP PO SCH (09:00)
--- NOTE | 2018-10-05 10:11 | Pulmonary Progress Note ---
Sepsis Event Evaluation Height, Weight, BMI Height: 5'" Weight: 231lbs. 6.0oz. 104.086101oa; 33.1 BMI Method:Stated Focused Exam Lactate Level 10/03/18 17:50: Lactic Acid Level 1.01 Exam Exam Vital Signs Date Time Temp Pulse Resp B/P (MAP) Pulse Ox O2 Delivery O2 Flow Rate FiO2 10/05/18 08:00 98.6 96 20 155/85 (108) 95 Nasal Cannula 2.00 10/05/18 06:45 95 Nasal Cannula 3.00 10/05/18 04:43 98.4 98 18 132/73 (92) 96 Nasal Cannula 2.00 10/05/18 03:11 93 Nasal Cannula 3.00 10/04/18 23:48 97.7 98 18 137/66 (89) 96 Nasal Cannula 10/04/18 22:20 92 Nasal Cannula 3.00 10/04/18 20:00 Nasal Cannula 3.00 10/04/18 19:23 99.1 102 20 146/68 (94) 92 Nasal Cannula 10/04/18 15:56 99.0 129 18 131/66 (87) 96 Nasal Cannula 10/04/18 15:27 93 Nasal Cannula 3.00 10/04/18 12:00 97.0 95 20 144/57 (86) 95 Nasal Cannula l I & O 10/05/18 06:59 Intake Total 1190 ml Balance 1190 ml Height & Weight Height: 5'.00" Weight: 231lbs. 6.0oz. 104.663482hw; 33.1 BMI Method:Stated General Appearance: No Apparent Distress, Chronically ill HEENT: PERRL/EOMI, Normal ENT Inspection, Pharynx Normal Neck: Full Range of Motion, Normal Inspection, Non Tender Respiratory: Chest Non Tender, No Accessory Muscle Use, No Respiratory Distress, Wheezing (Noted on forced expiration only diminished breath sounds are present posteriorly hyperresonance to percussion no dullness noted) Cardiovascular: No Edema, No Gallop, No JVD, No Murmur, Normal Peripheral Pulses, Other (Appears to be regular with frequent premature disease) Capillary Refill: Less Than 3 Seconds Gastrointestinal: normal bowel sounds, soft Extremity: Normal Capillary Refill, Normal Inspection, Normal Range of Motion, Non Tender, No Calf Tenderness, No Pedal Edema Neurologic/Psychiatric: Disoriented (Pleasant voicing no complaints intermittently think she still at home no evidence for agitation no focal defic its noted) Skin: Warm/Dry, Pallor Lymphatic: No Adenopathy Results Lab Laboratory Tests 10/04/18 11:54 10/05/18 06:00 Assessment/Plan Assessment/Plan Acute on chronic respiratory failure COPDAE -Solumedrol - change to 40 Q6 -ABG is improved today -Continue Duonebs Q4 -Oxygen - pt has oxygen at 3 liters 24/7 MS changes probably secondary to hypoxia Morbid obesity CARLINE JEFFERS DO October 05, 2018 10:11
[2018-10-05 11:30] VITALS: BP 155/85
--- NOTE | 2018-10-06 16:55 | Physician Query-Final Dx ---
JAE CRAWLEY 10/06/18 1655: Final Diagnosis Give Final Diagnosis Please give Final Diagnosis AUGUSTUS LECHUGA MD 10/11/18 1509: Final Diagnosis Give Final Diagnosis acute on chronic hypercapnic respiratory failure copd tobaccoism JAE CRAWLEY October 06, 2018 16:55 AUGUSTUS LECHUGA MD October 11, 2018 15:09
== END 2018-10-05 11:30 | disposition home or self-care (01) | DRG 189 ==
LOC: EDUNIT# 15:29 → ER 15:30 → 4TH 17:26
PROVIDERS: ADMIT Internal Medicine; ATTEND Internal Medicine
DX: J96.22 Acute and chronic respiratory failure with hypercapnia (principal); J44.1 Chronic obstructive pulmonary disease with (acute) exacerbation; Z87.891 Personal history of nicotine dependence; F41.9 Anxiety disorder, unspecified; M19.91 Primary osteoarthritis, unspecified site; E83.52 Hypercalcemia; E66.01 Morbid (severe) obesity due to excess calories; R41.82 Altered mental status, unspecified; Z68.33 Body mass index [BMI] 33.0-33.9, adult; Z99.81 Dependence on supplemental oxygen; Z88.5 Allergy status to narcotic agent
CPT/HCPCS: 36415; 36600; 70450; 71045; 71046; 80048; 80053; 81000; 82805; 83605; 83735; 83880; 83970; 84100; 85007; 85027; 87040; 94640; 94664; 94760; 96365; 96375

== ENCOUNTER → 2018-10-03 | Outpatient (CLI) | payer OTHER ==
[~2018-10-03] MED LIST changes: -ALEN70TA47 PO; +ALEN70TA5 PO; +ALPR1TAB7 PO; +CELE100C84 PO; +GABA-488 PO; +HYDR-3820 PO; +IBUP1TAB14 PO; +PRD20T PO; +TIOT18CA2 IH
[2018-10-03 14:38] LABS: BASOPHILS % (AUTO) 1 % (0-10); EOSINOPHILS # (AUTO) 0.2 10^3/uL (0.0-0.3); EOSINOPHILS % (AUTO) 4 % (0-10); HEMATOCRIT 39 % (35-52); HEMOGLOBIN 11.5 G/DL (11.5-16.0); LYMPHOCYTES # (AUTO) 1.2 X 10^3 (1.0-4.0); LYMPHOCYTES % (AUTO) 18 % (12-44); MEAN CORPUSCULAR HEMOGLOBIN 28 PG (25-34); MEAN CORPUSCULAR HGB CONC 29 G/DL (32-36); MEAN CORPUSCULAR VOLUME 94 FL (80-99); MEAN PLATELET VOLUME 9.7 FL (7.4-10.4); MONOCYTES % (AUTO) 15 % (0-12); NEUTROPHILS # (AUTO) 4.1 X 10^3 (1.8-7.8); NEUTROPHILS % (AUTO) 63 % (42-75); PLATELET COUNT 234 10^3/uL (130-400); RED CELL DISTRIBUTION WIDTH 13.7 % (10.0-14.5); WHITE BLOOD COUNT 6.5 10^3/uL (4.3-11.0)
[2018-10-03 14:56] LABS: ALANINE AMINOTRANSFERASE 13 U/L (0-55); ALBUMIN 3.8 GM/DL (3.2-4.5); ALKALINE PHOSPHATASE 99 U/L (40-136); BILIRUBIN,TOTAL 0.3 MG/DL (0.1-1.0); BUN/CREATININE RATIO 19; CALCIUM 10.1 MG/DL (8.5-10.1); CARBON DIOXIDE 33 MMOL/L (21-32); CHLORIDE 95 MMOL/L (98-107); GFR ESTIMATED > 60; GLUCOSE 99 MG/DL (70-105); POTASSIUM 4.2 MMOL/L (3.6-5.0); SODIUM 139 MMOL/L (135-145); TOTAL PROTEIN 7.2 GM/DL (6.4-8.2)
[2018-10-03 15:04] LABS: ABG BASE EXCESS 12.4 MMOL/L (-2.5-2.5); ABG OXYGEN SATURATION 92 % (94-100); ABG PO2 60 MMHG (79-93); ABG TCO2 41.3 MMOL/L (21.0-31.0)
[2018-10-03 15:05] LABS: ALLENS TEST YES-POS; INSPIRED O2 2.5L; PATIENT TEMP 96.2; VENTILATOR NO
[2018-10-03 15:13] LABS: ABG PH 7.34 (7.37-7.43)
[2018-10-03 15:14] LABS: ABG PCO2 73 MMHG (35-45)
== END ==
LOC: RT 14:18
PROVIDERS: ATTEND Internal Medicine
DX: J44.9 Chronic obstructive pulmonary disease, unspecified (principal); R41.0 Disorientation, unspecified
CPT/HCPCS: 36415; 36600; 80053; 82805; 85025

== ENCOUNTER → 2018-10-17 | Outpatient (CLI) | payer OTHER ==
[~2018-10-17] MED LIST changes: +ALPR1TAB7 PO; +CELE100C84 PO; +GABA-488 PO; +HYDR-3820 PO; +IBUP1TAB14 PO; +PRD20T PO; +TIOT18CA2 IH
--- NOTE | 2018-10-17 10:47 | Diagnostic Imaging Report ---
PROCEDURE: CT chest without contrast. TECHNIQUE: Multiple contiguous axial images were obtained through the chest without the use of intravenous contrast. Auto Exposure Controls were utilized during the CT exam to meet ALARA standards for radiation dose reduction. INDICATION: Lung nodule followup. COMPARISON: Correlation is made with prior CT chest from 04/18/2018. FINDINGS: No axillary lymphadenopathy is detected. Normal-sized lymph nodes in the mediastinum are noted. Ade is difficult to evaluate without IV contrast. No pericardial or pleural fluid is identified. There has been development of some mild patchy density and slight nodularity in the right apex. Nodular density measures 5-6 mm. 3-4 mm nodule in the right middle lobe is noted, similar to prior study. There has been improved aeration to the lingula since prior exam. There is some minimal nodularity along the lateral aspect of the lingula measuring 5 mm. Lower lobes are unremarkable. Upper abdomen is unremarkable. IMPRESSION: 1. Improved aeration to the lingula since prior exam. There is a small lingular nodule present. 2. Development of some mild patchy infiltrate and slight nodularity in the right apex since prior CT. Continued followup to confirm clearing and stability can be performed. Dictated by: Dictated on workstation # [id number]
== END ==
LOC: RAD 10:11
PROVIDERS: ATTEND Nurse Practitioner Family
DX: J44.9 Chronic obstructive pulmonary disease, unspecified (principal); R91.1 Solitary pulmonary nodule; Z72.0 Tobacco use
CPT/HCPCS: 71250

== ENCOUNTER 2018-11-14 14:20 | Outpatient (RCR) | payer OTHER ==
[~2018-11-14] VITALS: Ht 172.7 cm; Wt 108.4 kg
[~2018-11-14 14:20] MED LIST changes: -DULO30CA48 PO; +DULO30CA49 PO; -DULO60CA58 PO; +DULO60CA59 PO
[2018-11-14 14:26] VITALS: BP 116/60
[2018-11-29 13:00] VITALS: BP 120/60
[2018-11-29 14:10] VITALS: BP 120/82
[2018-12-01 13:00] VITALS: BP 140/60
[2018-12-01 14:00] VITALS: BP 127/72
[2018-12-06 12:55] VITALS: BP 120/60
[2018-12-06 14:10] VITALS: BP 110/86
[2018-12-08 13:00] VITALS: BP 132/80
[2018-12-08 13:50] VITALS: BP 112/82
[2018-12-13 12:58] VITALS: BP 120/84
[2018-12-13 13:52] VITALS: BP 112/80
[2018-12-22 13:00] VITALS: BP 140/80
[2018-12-22 14:09] VITALS: BP 114/60
[2018-12-27 13:00] VITALS: BP 130/58
[2018-12-27 14:21] VITALS: BP 110/80
[2019-01-03 13:05] VITALS: BP 144/90
[2019-01-03 13:50] VITALS: BP 138/82
[2019-01-05 13:00] VITALS: BP 137/70
[2019-01-05 14:00] VITALS: BP 142/86
[2019-01-12 13:00] VITALS: BP 140/90
[2019-01-12 14:00] VITALS: BP 148/70
[2019-01-24 13:00] VITALS: BP 138/60
[2019-01-24 13:50] VITALS: BP 122/70
[2019-01-26 13:00] VITALS: BP 115/60
[2019-01-26 14:30] VITALS: BP 122/80
[2019-01-31 13:00] VITALS: BP 130/65
[2019-01-31 13:59] VITALS: BP 120/60
[2019-02-02 13:00] VITALS: BP 110/80
[2019-02-02 14:08] VITALS: BP 110/80
[2019-02-07 13:00] VITALS: BP 110/80
[2019-02-07 14:00] VITALS: BP 110/80
[2019-02-09 13:00] VITALS: BP 121/88
== END 2019-02-12 | disposition home or self-care (01) ==
LOC: RT 14:20
PROVIDERS: ATTEND Nurse Practitioner Family
DX: R91.1 Solitary pulmonary nodule (principal); J44.9 Chronic obstructive pulmonary disease, unspecified; R09.02 Hypoxemia; R53.83 Other fatigue; R06.00 Dyspnea, unspecified; Z72.0 Tobacco use
CPT/HCPCS: 99211

== ENCOUNTER → 2018-12-15 | Outpatient (CLI) | payer OTHER ==
[2018-12-15 14:20] LABS: BUN/CREATININE RATIO 15; CREATININE SERUM 0.78 MG/DL (0.60-1.30); GFR ESTIMATED > 60
--- NOTE | 2018-12-15 15:07 | Diagnostic Imaging Report ---
PROCEDURE: CT chest with contrast only. TECHNIQUE: Multiple contiguous axial images were obtained through the chest after administration of intravenous contrast. Auto Exposure Controls were utilized during the CT exam to meet ALARA standards for radiation dose reduction. INDICATION: Lung nodule and COPD, followup. COMPARISON: Correlation is made with prior CT chest from 10/17/2018. FINDINGS: No axillary lymphadenopathy is detected. No hilar or mediastinal lymphadenopathy is detected. No pericardial or pleural fluid is identified. The area of groundglass opacity and nodularity in the right lung apex has nearly completely resolved. This is most likely on an infectious/inflammatory basis. Tiny nodule in right middle lobe remain stable at 3-4 mm. There appears to be some chronic infiltrate or atelectasis in the lingula, stable. No new parenchymal abnormality is identified. Upper abdomen demonstrates some generalized enlargement of left adrenal gland similar to prior study. IMPRESSION: Clearing of right apical groundglass infiltrate and nodularity since prior study consistent with cleared pneumonia. No new parenchymal abnormality is identified. Dictated by: Dictated on workstation # [id number]
== END ==
LOC: RAD 13:39
PROVIDERS: ATTEND Nurse Practitioner Family
DX: J44.9 Chronic obstructive pulmonary disease, unspecified (principal); R91.1 Solitary pulmonary nodule; Z72.0 Tobacco use
CPT/HCPCS: 36415; 71260; 82565; 84520

== ENCOUNTER → 2019-01-18 | Outpatient (CLI) | payer OTHER ==
[~2019-01-18] MED LIST changes: +RT-ALBUTEROL SULF 2.5 MG/3 ML PRE-MIX VIAL INH ONE
== END ==
LOC: RT 10:32
PROVIDERS: ATTEND Nurse Practitioner Family
DX: J44.9 Chronic obstructive pulmonary disease, unspecified (principal); R91.1 Solitary pulmonary nodule; Z72.0 Tobacco use
CPT/HCPCS: 94060; 94726; 94729

== ENCOUNTER 2019-02-16 14:20 | Outpatient (RCR) | payer OTHER ==
[2019-02-16 13:00] VITALS: BP 130/84
[2019-02-16 14:15] VITALS: BP 110/68
[~2019-02-16 14:20] MED LIST changes: -RT-ALBUTEROL SULF 2.5 MG/3 ML PRE-MIX VIAL INH ONE
[2019-02-23 13:00] VITALS: BP 130/80
[2019-02-28 13:00] VITALS: BP 140/60
== END 2019-05-17 | disposition home or self-care (01) ==
LOC: PULM 14:20
PROVIDERS: ATTEND Nurse Practitioner Family
DX: J44.9 Chronic obstructive pulmonary disease, unspecified (principal); R91.1 Solitary pulmonary nodule; Z72.0 Tobacco use

== ENCOUNTER → 2019-05-15 | Outpatient (CLI) | payer OTHER ==
--- NOTE | 2019-05-15 13:16 | Diagnostic Imaging Report ---
INDICATION: Routine screening. Comparison is made with prior mammogram 05/12/2018 and 05/06/2017. 2-D and 3-D bilateral screening mammography was performed with CAD. Both breasts remain heterogeneously dense, limiting the sensitivity of mammography. Occasional benign calcifications are noted. No mass or malignant appearing microcalcifications are seen. Axillae are unremarkable. IMPRESSION: BI-RADS Category 2 No mammographic features suspicious for malignancy are identified. ACR BI-RADS Category 2: Benign findings. Result letter will be mailed to the patient. Note: At least 10% of breast cancer is not imaged by mammography. Dictated by: Dictated on workstation # [id number]
== END ==
LOC: RAD 10:15
PROVIDERS: ATTEND Internal Medicine
DX: Z12.31 Encounter for screening mammogram for malignant neoplasm of breast (principal)
CPT/HCPCS: 77067

== ENCOUNTER → 2019-12-18 | Outpatient (CLI) | payer OTHER ==
[~2019-12-18] MED LIST changes: +ACHYD1T PO; -ARIP5TAB20 PO; +ARIP5TAB57 PO; -HYDR-3820 PO
--- NOTE | 2019-12-18 14:50 | Diagnostic Imaging Report ---
EXAMINATION: CT CHEST SCREENING WO. TECHNIQUE: Low-dose unenhanced CT of the chest was performed according to the screening protocol. Coronal MIP and sagittal MPR reformats are created. Automatic exposure controls were utilized to keep dose as low as reasonably achievable. INDICATION: 38 pack year history of smoking. Quit smoking 3 years ago. COMPARISON: CT chest of 12/15/2018. FINDINGS: Pulmonary findings: No endoluminal nodule within the trachea. No pulmonary mass or consolidation. A right middle lobe pulmonary nodule is stable (image 124, series 2). No additional pulmonary nodules. Extrapulmonary findings: No axillary lymphadenopathy or pleural effusion. No mediastinal, hilar, or juxtaphrenic lymphadenopathy. The heart is normal in size without pericardial effusion. Normal caliber thoracic aorta. Limited assessment of the upper abdomen is unremarkable. Stable changes of vertebral augmentation within T12. IMPRESSION: Baseline screening examination is negative for features of clinically active lung cancer. Lung-RADS category: 2 - Benign appearance or behavior Recommendations: Continued annual screening with low-dose CT in 12 months. Dictated by: Dictated on workstation # [id number]
== END ==
LOC: RAD 12:43
PROVIDERS: ATTEND Nurse Practitioner Family
DX: Z12.2 Encounter for screening for malignant neoplasm of respiratory organs (principal); J43.8 Other emphysema; R91.1 Solitary pulmonary nodule; R09.02 Hypoxemia; R53.83 Other fatigue; R06.00 Dyspnea, unspecified; Z87.891 Personal history of nicotine dependence

== ENCOUNTER → 2020-09-16 | Outpatient (CLI) | payer MEDICARE, OTHER ==
[~2020-09-16] MED LIST changes: -ALEN70TA5 PO; +ALEN70TA80 PO
--- NOTE | 2020-09-16 11:26 | Diagnostic Imaging Report ---
Digital mammogram. INDICATION: Bilateral screening This study was compared to the prior exam of 05/15/2019, 05/12/2018 and 05/06/2017. At this time there are no current complaints. The current study was also evaluated with a Computer Aided Detection (CAD) system. FINDINGS: The fibroglandular tissue in both breasts is heterogeneously dense. This does limit the sensitivity of this exam. Overall, there does not appear to have been any significant change when compared to the prior study. No primary or secondary sign of malignancy is noted. IMPRESSION: There is no radiographic evidence for malignancy. ACR BI-RADS Category 1: Negative. Result letter will be mailed to the patient. Note: At least 10% of breast cancer is not imaged by mammography. Dictated by: Dictated on workstation # [id number]
== END ==
LOC: RAD 10:44
PROVIDERS: ATTEND Internal Medicine
DX: Z12.31 Encounter for screening mammogram for malignant neoplasm of breast (principal)
CPT/HCPCS: 77063; 77067

== ENCOUNTER → 2020-12-18 | Outpatient (CLI) | payer MEDICARE, OTHER ==
--- NOTE | 2020-12-18 12:06 | Diagnostic Imaging Report ---
CT Lung Screening INDICATION:Screening for lung cancer, 37 pack year history of smoking, quit smoking 3 years prior TECHNIQUE: Noncontrast, low-dose CT imaging performed according to the lung cancer screening protocol. Auto Exposure Controls were utilize during the CT exam to meet ALARA standards for radiation dose reduction. COMPARISON:12/18/2019 and 10/17/2018 FINDINGS:No significant adenopathy within chest. Scattered vascular calcifications are present within the thoracic aorta and its branch vessels, including the coronary arteries. No aneurysmal dilatation of thoracic aorta. The heart is within normal limits in size. No pericardial effusion. No pleural effusion. Stable mild elevation right hemidiaphragm. The trachea is patent. No pneumothorax. Mild background emphysematous changes. 0.4 x 0.47 of subpleural solid left lower lobe pulmonary nodule is present. Scarring within the posterior aspect of the right upper lobe is again seen. 0.4 cm solid right middle lobe pulmonary nodules unchanged since 12/15/2018, and felt to be benign. No additional new suspicious pulmonary nodule. Small amount of debris is noted within the esophagus. The minimally visualized upper abdomen is unremarkable. Vertebroplasty changes within the lower thoracic spine are again seen. Postsurgical changes within the cervical spine are partially visualized. Scattered osseous degenerative changes without acute osseous abnormality. IMPRESSION:0.4 cm and smaller bilateral pulmonary nodules are again seen, demonstrating a benign appearance or behavior. Mild background emphysematous changes. Additional findings as described above LUNG-RADS CATEGORY:2: Benign appearance or behavior FOLLOWUP: Continued annual low-dose screening CT of the chest in one year. Dictated by: Dictated on workstation # [id number]
== END ==
LOC: RAD 10:45
PROVIDERS: ATTEND Nurse Practitioner Family
DX: Z12.2 Encounter for screening for malignant neoplasm of respiratory organs (principal); J43.9 Emphysema, unspecified; R91.8 Other nonspecific abnormal finding of lung field; Z87.891 Personal history of nicotine dependence
CPT/HCPCS: 71271

== ENCOUNTER 2021-08-12 09:48 | Outpatient (RCR) | payer MEDICARE, OTHER ==
[~2021-08-12 09:48] MED LIST changes: +POTA-179 PO
== END 2021-08-14 | disposition home or self-care (01) ==
PROVIDERS: ATTEND Nurse Practitioner Family
DX: M48.061 Spinal stenosis, lumbar region without neurogenic claudication (principal); J44.9 Chronic obstructive pulmonary disease, unspecified

== ENCOUNTER 2021-09-04 11:21 | Outpatient (RCR) | payer MEDICARE, OTHER | END 2021-09-13 | disposition home or self-care (01) | PROVIDERS: ATTEND Nurse Practitioner Family | DX: M48.061 Spinal stenosis, lumbar region without neurogenic claudication (principal); J44.9 Chronic obstructive pulmonary disease, unspecified ==

== ENCOUNTER → 2021-09-29 | Outpatient (CLI) | payer MEDICARE, OTHER ==
--- NOTE | 2021-09-29 12:36 | Diagnostic Imaging Report ---
Indication: Routine screening. Comparison is made with prior mammogram 09/16/2020 and 05/15/2019. 2-D and 3-D bilateral screening mammography was performed with CAD. CAD is utilized. The current study was also evaluated with a Computer Aided Detection (CAD) system. Both breasts are heterogeneously dense, limiting the sensitivity of mammography. There are scattered benign calcifications in both breasts. No mass or malignant-appearing microcalcifications are seen. Axillae are unremarkable. IMPRESSION: BI-RADS Category 2 No mammographic features suspicious for malignancy are identified. ACR BI-RADS Category 2: Benign findings. Result letter will be mailed to the patient. Note: At least 10% of breast cancer is not imaged by mammography. Dictated by: Dictated on workstation # [id number]
== END ==
LOC: RAD 09:15
PROVIDERS: ATTEND Internal Medicine
DX: Z12.31 Encounter for screening mammogram for malignant neoplasm of breast (principal)
CPT/HCPCS: 77063; 77067

== ENCOUNTER → 2022-02-05 | Outpatient (CLI) | payer MEDICARE, OTHER ==
--- NOTE | 2022-02-05 15:56 | Diagnostic Imaging Report ---
LUMBAR SPINE - 2-3 VIEWS INDICATION: Lumbar pain COMPARISON: 10/24/2016 TECHNIQUE: 2 views of the lumbar spine FINDINGS: There is approximately 30 degrees of dextroscoliosis of the lumbar spine with apex at L1. No acute compression deformity. There is 3 mm of anterolisthesis of L4-L5 which is unchanged and due to facet osteoarthritis. SI joints are normal in appearance. Normal appearance of the sacrum. IMPRESSION: 1. Worsening degenerative dextroscoliosis of the lumbar spine. 2. No acute compression deformity. Dictated by: Dictated on workstation # [id number]
== END ==
LOC: RAD 11:36
PROVIDERS: ATTEND Pain Medicine Interventional Pain Medicine
DX: M41.86 Other forms of scoliosis, lumbar region (principal); M54.16 Radiculopathy, lumbar region
CPT/HCPCS: 72100

== ENCOUNTER 2022-08-06 17:48 | Inpatient (IN) | payer MEDICARE, OTHER ==
[~2022-08-06] VITALS: Ht 172 cm; Wt 105.8 kg
[2022-08-06] MEDS ORDERED: RT-ALBUTEROL SULF 2.5 MG/3 ML PRE-MIX VIAL INH STA (17:51)
[2022-08-06] MEDS ORDERED: methylPREDNISolone 125 MG (Solu-MEDROL) VIAL IV STA (17:51)
[2022-08-06] MEDS ORDERED: RT-ALBUTEROL/IPRATROPIUM 3 ML (DUONEB) VIAL INH ONE (18:00)
[2022-08-06] MEDS ORDERED: LIDOCAINE UROJET 2% GEL 10 ML PKG TOP ONE (18:00)
[2022-08-06] MEDS ORDERED: CEFEPIME INJECTION 1,000 MG in NS (IVPB) 50 ML IV ONE (18:00)
--- NOTE | 2022-08-06 18:04 | ED Respiratory ---
General Chief Complaint: Respiratory Problems Stated Complaint: SOA Nursing Triage Note: PT ARRIVED PER EMS, PT WEARS O2 AT 4L PER N/C AT HOME. PT GETTING DUONED UPON ARRIVAL. PT SAT 70'S AT HOME FOR EMS, PT UP TO 86% ON 8L W DUONEB. ETCO2 63 FOR EMS. PT VERY WEAK. DENIES ANY PAIN AT THIS Source: patient (VERY MINIMAL INFORMATION--BARELY NODS HEAD YES/NO TO A FEW QUESTIONS), EMS Exam Limitations: clinical condition History of Present Illness Date Seen by Provider: Aug 06, 2022 Time Seen by Provider: 17:49 Initial Comments PT ARRIVES VIA EMS FROM HOME PT WITH COPD, HOME O2 AT 4L/NC -EMS REPORT 60 FOOT LONG O2 HOSE. EMS REPORT THAT TOLD THEM SHE HAS BEEN SHORT OF BREATH ALL DAY TODAY O2 SATS AT HOME IN THE 70'S ON PT'S NORMAL 4L/NC. EMS REPORT THAT PT DOES NOT HAVE A HOME NEBULIZER, AND WAS ONLY RECENTLY PRESCRIBED A "RESCUE INHALER" --SHE USED IT ONCE TODAY EMS PLACED PT ON 8L/NC AND GAVE DUONEB--O2 SAT UP TO 85%, WITH ET CO2 63 FOR EMS. ON ARRIVAL, PT IS VERY LETHARGIC, WITH LABORED BREATHING. SHE IS NOT ABLE TO TALK, BUT CAN BARELY NOD HER HEAD YES/NO TO A FEW QUESTIONS. PT HAS NOT BEEN ON BIPAP OR VENTILATOR BEFORE. SHE DOES NOD HEAD YES, WHEN ASKED IF SHE AGREED TO BEING ON A VENTILATOR IF NECESSARY. NO OTHER INFORMATION IS OBTAINABLE ON ARRIVAL. ALL MEDICAL HISTORY IS FROM PRIOR RECORDS ON ARRIVAL ON REVIEW OF PRIOR RECORDS, PT HAS HAD 4 ADMITS FOR COPD EXACERBATION FROM 2011- 2018 HER LAST VISIT HERE WAS IN 2018, AND WAS FOR COPD EXACERBATION / ACUTE ON CHRONIC RESPIRATORY FAILURE. IS IN ROOM AFTER PT PLACED ON BIPAP HE STATES SHE HAD ROUTINE LAB DONE [place] [facility] [place], AND HAD ROUTINE APPOINTMENT WITH DR. LECHUGA YESTERDAY. STATES SHE WAS WHEEZING JUST A LITTLE, SO GAVE HER A SPIRIVA INHALER / SAMPLE. STATES SHE WOKE UP THIS MORNING, HAD BREAKFAST AND WENT BACK TO BED AND HAS BEEN IN BED ALL DAY. HE CHECKED ON HER AT 1600 AND COULDN'T HARDLY WAKE HER UP, AND SHE WAS HAVING VERY LABORED BREATHING AND ALOT OF CONGESTION IN HER CHEST. SO HE CALLED EMS. PCP:DR. LECHUGA Allergies and Home Medications Allergies Coded Allergies: morphine (Unverified Adverse Reaction, Mild, RASH, 10/03/18) Patient Home Medication List Home Medication List Reviewed: Yes Alprazolam (Alprazolam) 1 Mg Tablet, 1 MG PO Q8H PRN for ANXIETY, (Reported) Entered as Reported by: MY UREÑA on 10/04/18 1051 Aripiprazole (Aripiprazole) 5 Mg Tablet, 5 MG PO DAILY, (Reported) Entered as Reported by: JENN CHRISTY on 10/26/16 0951 Celecoxib (Celecoxib) 100 Mg Capsule, 100 MG PO BID, (Reported) Entered as Reported by: MY UREÑA on 10/04/18 1051 Duloxetine HCl (Duloxetine HCl) 60 Mg Capsule.dr, 60 MG PO DAILY, (Reported) Entered as Reported by: JENN CHRISTY on 10/26/16 0951 Gabapentin (Gabapentin) 300 Mg Capsule, 300 MG PO TID PRN for NEUROPATHY PAIN, (Reported) Entered as Reported by: MY UREÑA on 10/04/18 1051 Hydrocodone Bit/Acetaminophen (HYDROcodone/APAP 10/325 TABLET) 1 Each Tablet, 1 TAB PO Q4H PRN for PAIN-MODERATE, (Reported) Entered as Reported by: MY UREÑA on 10/04/18 1051 Ibuprofen/Diphenhydramine Cit (Advil Pm Caplet) 1 Each Tablet, 1 TAB PO HS PRN for SLEEP, (Reported) Entered as Reported by: MY UREÑA on 10/04/18 1053 Prednisone (Prednisone) 20 Mg Tab, 20 MG PO DAILY Prescribed by: AUGUSTUS LECHUGA on 10/05/18 0831 Tiotropium [place] (Spiriva) 1 Inh Aerp, 1 CAP IH DAILY PRN for SHORTNESS OF BREATH, (Reported) Entered as Reported by: MY UREÑA on 10/04/18 1052 Review of Systems Review of Systems Constitutional: other (PT UNABLE TO ANSWER MOST QUESTIONS ON ARRIVAL DUE TO LETHARGY AND DYSPNEA) Respiratory: see HPI Past Ygphkre-Nuxege-Darfjf Hx Immunizations Up To Date Tetanus Booster (TDap): Less than 5yrs Seasonal Allergies Seasonal Allergies: No Past Medical History Orthopedic Respiratory: Yes (HOME O2 AT 4L/NC) COPD Cardiac: No Neurological: No Reproductive Disorders: No Female 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 HAND History: Menopausal Genitourinary: No Gastrointestinal: No Musculoskeletal: Yes Arthritis, Chronic Back Pain Endocrine: No HEENT: No Loss of Vision: Bilateral Hearing Impairment: Denies Cancer: No Psychosocial: No Anxiety Integumentary: No Blood Disorders: No Adverse Reaction/Blood Tranf: No Family Medical History Breas 19 MOTHER Congenital heart disease 19 FATHER 19 MOTHER Hypertension 19 FATHER 19 MOTHER Myocardial infarction 19 MOTHER Prostate cancer 19 FATHER Physical Exam Vital Signs - First Documented 08/06/22 08/06/22 08/06/22 17:49 17:50 18:00 Temp 36.8 Pulse 114 Resp 30 B/P (MAP) 143/86 (105) Pulse Ox 86 O2 Delivery Nasal Cannula O2 Flow Rate 4.00 FiO2 100 Capillary Refill : Less Than 3 Seconds Height: 5'8.00" Weight: 244lbs. 6.0oz. [id number]; 33.00 BMI Method:Stated General Appearance: moderate distress, obese, other (VERY LETHARGIC, DYSPNEIC) HEENT: PERRL/EOMI Neck: normal inspection Respiratory: respiratory distress, decreased breath sounds, accessory muscle use, rhonchi (AUDIBLE), other (LABORED BREATHING, WITHOUT ANY SIGNIFICANT AIR MOVEMENT) Cardiovascular: no JVD, no murmur, tachycardia Gastrointestinal: non tender, soft Extremities: no pedal edema, slow capillary refill (FEET COLD AND DUSKY. UNABLE TO PALPATE PEDAL PULSES. FINGERS CYANOTIC. ) Neurologic/Psychiatric: no motor/sensory deficits (GROSSLY INTACT--MOVES ALL EXTREMITES, BUT IS VERY LETHARGIC), other (MENTATION ABOVE) Skin: warm/dry; No rash Focused Exam Sepsis Stage: Sepsis Possible Source: Pulmonary Lactate Level 08/06/22 18:02: Lactic Acid Level 1.20 Time of Focused Exam: 18:45 Respiratory: Other (IMPROVED AERATION, DECREASED RHONCHI ON BIPAP, RESPIRATIONS LESS LABORED) Cardiovascular: Tachycardia Capillary Refill: Greater Than 3 Seconds (FEET COLD, DUSKY, WITH POOR CAP REFILL. FINGERS ARE NO LONGER DUSKY AND HAVE IMPROVED CAPILLARY REFILL. ) Skin: warm/dry Lactic Acid Level Laboratory Tests Test 08/06/22 18:02 Lactic Acid Level 1.20 MMOL/L (0.50-2.00) Within 3hrs of presentation: Admin fluids, Admin ABX, Blood cultures prior to ABX's, Focus exam, Lactate level Procedures/Interventions Suture Size: 5-0 Progress/Results/Core Measures Suspected Sepsis SIRS Temperature: Pulse: 114 Respiratory Rate: 30 Laboratory Tests 08/06/22 18:02: White Blood Count 17.9H Blood Pressure 143 /86 Mean: 105 08/06/22 18:02: Lactic Acid Level 1.20 Laboratory Tests 08/06/22 18:02: Creatinine 0.81, INR Comment 0.9, Platelet Count 296, Total Bilirubin 0.3 Results/Orders Lab Results Laboratory Tests Test 08/06/22 18:00 08/06/22 18:02 08/06/22 18:45 08/06/22 19:30 Range/Units Blood Gas Puncture Site L RADIAL LR Blood Gas Patient Temperature 35.7 36.6 Arterial Blood pH 7.18 *L 7.22 *L 7.37-7.43 Arterial Blood Partial Pressure CO2 103 *H 92 *H 35-45 MMHG Arterial Blood Partial Pressure O2 67 L 63 L 79-93 MMHG Arterial Blood HCO3 38 H 36 H 23-27 MMOL/L Arterial Blood Total CO2 41.4 *H 39.1 H 21.0-31.0 MMOL/L Arterial Blood Oxygen Saturation 93 L 92 L 94-100 % Arterial Blood Base Excess 9.5 H 8.6 H -2.5-2.5 MMOL/L Louis Test POSITIVE YES-POS Blood Gas Ventilator Setting NO NO Blood Gas Inspired Oxygen 100% BIPAP 70% White Blood Count 17.9 H 4.3-11.0 10^3/uL Red Blood Count 5.21 H 3.80-5.11 10^6/uL Hemoglobin 15.2 11.5-16.0 g/dL Hematocrit 51 35-52 % Mean Corpuscular Volume 98 80-99 fL Mean Corpuscular Hemoglobin 29 25-34 pg Mean Corpuscular Hemoglobin Concent 30 L 32-36 g/dL Red Cell Distribution Width 13.4 10.0-14.5 % Platelet Count 296 130-400 10^3/uL Mean Platelet Volume 10.6 9.0-12.2 fL Immature Granulocyte % (Auto) 1 % Neutrophils (%) (Auto) 77 H 42-75 % Lymphocytes (%) (Auto) 14 12-44 % Monocytes (%) (Auto) 8 0-12 % Eosinophils (%) (Auto) 0 0-10 % Basophils (%) (Auto) 0 0-10 % Neutrophils # (Auto) 13.8 H 1.8-7.8 10^3/uL Lymphocytes # (Auto) 2.5 1.0-4.0 10^3/uL Monocytes # (Auto) 1.5 H 0.0-1.0 10^3/uL Eosinophils # (Auto) 0.0 0.0-0.3 10^3/uL Basophils # (Auto) 0.1 0.0-0.1 10^3/uL Immature Granulocyte # (Auto) 0.1 0.0-0.1 10^3/uL Neutrophils % (Manual) 77 % Lymphocytes % (Manual) 15 % Monocytes % (Manual) 6 % Band Neutrophils 2 % Platelet Estimate NORMAL Stomatocytes SLIGHT Erythrocyte Sedimentation Rate 4 0-30 MM/HR Prothrombin Time 12.7 12.2-14.7 SEC INR Comment 0.9 0.8-1.4 Activated Partial Thromboplast Time 27 24-35 SEC D-Dimer 0.75 H 0.00-0.49 UG/ML Sodium Level 143 135-145 MMOL/L Potassium Level 3.8 3.6-5.0 MMOL/L Chloride Level 100 98-107 MMOL/L Carbon Dioxide Level 30 21-32 MMOL/L Anion Gap 13 5-14 MMOL/L Blood Urea Nitrogen 16 7-18 MG/DL Creatinine 0.81 0.60-1.30 MG/DL Estimat Glomerular Filtration Rate 80 BUN/Creatinine Ratio 20 Glucose Level 211 H 70-105 MG/DL Lactic Acid Level 1.20 0.50-2.00 MMOL/L Calcium Level 9.7 8.5-10.1 MG/DL Corrected Calcium 9.3 8.5-10.1 MG/DL Magnesium Level 2.0 1.6-2.4 MG/DL Total Bilirubin 0.3 0.1-1.0 MG/DL Aspartate Amino Transf (AST/SGOT) 21 5-34 U/L Alanine Aminotransferase (ALT/SGPT) 16 0-55 U/L Alkaline Phosphatase 71 40-136 U/L Total Creatine Kinase 37 29-168 U/L Creatine Kinase MB 2.0 <6.6 NG/ML Myoglobin 17.3 10.0-92.0 NG/ML Troponin I < 0.028 <0.028 NG/ML C-Reactive Protein High Sensitivity 0.52 H 0.00-0.50 MG/DL B-Type Natriuretic Peptide 53.4 <100.0 PG/ML Total Protein 7.5 6.4-8.2 GM/DL Albumin 4.5 3.2-4.5 GM/DL Influenza Type A (RT-PCR) Not Detected Not Detecte Influenza Type B (RT-PCR) Not Detected Not Detecte SARS-CoV-2 RNA (RT-PCR) Not Detected Not Detecte Urine Color YELLOW Urine Clarity SL CLOUDY Urine pH 6.0 5-9 Urine Specific Ulysses >=1.030 1.016-1.022 Urine Protein TRACE H NEGATIVE Urine Glucose (UA) NEGATIVE NEGATIVE Urine Ketones NEGATIVE NEGATIVE Urine Nitrite NEGATIVE NEGATIVE Urine Bilirubin NEGATIVE NEGATIVE Urine Urobilinogen 0.2 < = 1.0 MG/DL Urine Leukocyte Esterase NEGATIVE NEGATIVE Urine RBC (Auto) NEGATIVE NEGATIVE Urine RBC NONE /HPF Urine WBC RARE /HPF Urine Squamous Epithelial Cells NONE /HPF Urine Crystals NONE /LPF Urine Bacteria TRACE /HPF Urine Casts PRESENT /LPF Urine Hyaline Casts 5-10 H /LPF Urine Mucus SMALL H /LPF Urine Culture Indicated CULTURE PENDING Urine Opiates Screen POSITIVE H NEGATIVE Urine Oxycodone Screen NEGATIVE NEGATIVE Urine Methadone Screen NEGATIVE NEGATIVE Urine Propoxyphene Screen NEGATIVE NEGATIVE Urine Barbiturates Screen NEGATIVE NEGATIVE Ur Tricyclic Antidepressants Screen NEGATIVE NEGATIVE Urine Phencyclidine Screen NEGATIVE NEGATIVE Urine Amphetamines Screen NEGATIVE NEGATIVE Urine Methamphetamines Screen NEGATIVE NEGATIVE Urine Benzodiazepines Screen POSITIVE H NEGATIVE Urine Cocaine Screen NEGATIVE NEGATIVE Urine Cannabinoids Screen NEGATIVE NEGATIVE Test 08/06/22 19:35 Range/Units My Orders Orders - MATT WIGGINS DO Ed Iv/Invasive Line Start (08/06/22 17:51) Ekg Tracing (08/06/22 17:51) Catheter(Urinary) Insert & Ass 03,15 (08/06/22 17:51) O2 (08/06/22 17:51) Monitor-Rhythm Ecg Trace Only (08/06/22 17:51) Chest 1 View, Ap/Pa Only (08/06/22 17:51) Arterial Blood Gas (08/06/22 17:55) Bnp Moore (08/06/22 17:51) Cbc With Automated Diff (08/06/22 17:51) Comprehensive Metabolic Panel (08/06/22 17:51) Creatine Kinase (08/06/22 17:51) Creatine Kinase Mb (08/06/22 17:51) Hs C Reactive Protein (08/06/22 17:51) Fibrin Degradation Products (08/06/22 17:51) Drug Screen Stat (Urine) (08/06/22 17:51) Lactic Acid Analyzer (08/06/22 17:51) Magnesium (08/06/22 17:51) Protime With Inr (08/06/22 17:51) Partial Thromboplastin Time (08/06/22 17:51) Ua Culture If Indicated (08/06/22 17:51) Blood Culture (08/06/22 17:51) Erythrocyte Sedimentation Rate (08/06/22 17:51) Myoglobin Serum (08/06/22 17:51) Troponin I Latricia (08/06/22 17:51) Albuterol Pre-Mix Nebs (Rt) (Proventil (08/06/22 17:51) Albuterol/Ipra Inhalation Soln (Duoneb I (08/06/22 18:00) Dexamethasone Injection (Decadron Injec (08/06/22 18:00) Rt Request For Service (08/06/22 17:51) Methylprednisolone Sod Succ (Solu-Medrol (08/06/22 17:51) Covid 19 Inhouse Test (08/06/22 17:51) Sputum Culture (08/06/22 17:51) Urine Culture (08/06/22 17:51) Ed Iv/Invasive Line Start (08/06/22 17:51) Ed Iv/Invasive Line Start (08/06/22 17:51) Vital Signs Adult Sepsis Patie Q15M (08/06/22 17:51) O2 (08/06/22 17:51) Remove Rings In Anticipation O (08/06/22 17:51) Cefepime Injection (Maxipime Injection) (08/06/22 18:00) Lidocaine 2% (Urojet) (Xylocaine Urojet) (08/06/22 18:00) Svn Small Volume Nebulizer (08/06/22 17:51) Svn Small Volume Nebulizer (08/06/22 17:51) Influenza A And B By Pcr (08/06/22 17:51) Isolation Central Supply Req (08/06/22 17:51) Manual Differential (08/06/22 18:02) Ct Angio Chest W (R/O Pe) (08/06/22 18:49) Iohexol Injection (Omnipaque 350 Mg/Ml 1 (08/06/22 19:00) Received Contrast (Hold Metformin- Contr (08/06/22 19:00) Ns (Ivpb) (Sodium Chloride 0.9% Ivpb Bag (08/06/22 19:00) Arterial Blood Gas (08/06/22 19:25) Beta Hydroxybutyrate (08/06/22 19:29) Hemoglobin A1c (08/06/22 19:29) Ed Iv/Invasive Line Start (08/06/22 19:56) Ns Iv 1000 Ml (Sodium Chloride 0.9%) (08/06/22 20:00) Medications Given in ED Current Medications Medications Dose Ordered Sig/Denise Route Start Time Stop Time Status Last Admin Dose Admin Albuterol/ Ipratropium 3 ml ONCE ONCE INH 08/06/22 18:00 08/06/22 18:01 DC 08/06/22 18:00 3 ML Cefepime HCl 1000 mg/Sodium Chloride 50 ml @ 100 mls/hr ONCE ONCE IV 08/06/22 18:00 08/06/22 18:29 DC 08/06/22 18:26 100 MLS/HR Dexamethasone Sodium Phosphate 20 mg ONCE ONCE IH 08/06/22 18:00 08/06/22 18:01 DC 08/06/22 18:57 20 MG Iohexol 100 ml ONCE ONCE IV 08/06/22 19:00 08/06/22 19:01 DC 08/06/22 19:24 82 ML Lidocaine HCl 10 ml ONCE ONCE TOP 08/06/22 18:00 08/06/22 18:01 DC 08/06/22 18:26 10 ML Sodium Chloride 100 ml ONCE ONCE IV 08/06/22 19:00 08/06/22 19:01 DC 08/06/22 19:24 80 ML Vital Signs/I&O 08/06/22 08/06/22 08/06/22 08/06/22 17:49 17:49 17:50 17:55 Temp 36.8 Pulse 114 Resp 30 B/P (MAP) 143/86 (105) Pulse Ox 86 86 98 O2 Delivery Nasal Cannula Nasal Cannula Nasal Cannula O2 Flow Rate 4.00 8.00 8.00 100.00 08/06/22 08/06/22 08/06/22 18:00 18:57 18:59 Pulse 117 Resp 28 Pulse Ox 94 O2 Delivery NIV Bilevel O2 Flow Rate 70.00 FiO2 100 Capillary Refill : Less Than 3 Seconds Blood Pressure Mean: 105 Progress Note : Progress Note COVID AND FLU TESTING DONE SEPSIS PROTOCOL INITIATED O2 SAT 86& ON EMS 8 L/NC. ON ARRIVAL PT IMMEDIATELY PLACED ON BIPAP ON ARRIVAL O2 SATS QUICKLY UP TO 92% ON BIPAP. BIPAP SETTINGS ADJUSTED BY RT STAFF ON RECEIVING ABG RESULTS PT WAS GIVEN: -IV SOLU-MEDROL -HOUR LONG NEB TREATMENT WITH DECADRON AND DUONEB -CEFEPIME -IV FLUIDS SIGNIFICANT IMPROVEMENT IN MENTATION AFTER INITIATING BIPAP, AND O2 SATS STABLE AT 94%. PT IS NOW AWAKE, AND ABLE TO TALK, AND APPEARS TO BE MENTATING NORMALLY AFTER 1 HOUR ON BIPAP, REPEAT ABG'S WERE DONE, AND ARE IMPROVING--PH UP, CO2 DOWN. DIFFERENTIAL DX INCLUDES: COPD EXACERBATION; PNEUMONIA; BRONCHITIS; CARDIAC ETIOLOGY: P.E.; PNEUMOTHORAX; COVID/FLU PT MEETS SEPSIS CRITERIA BASED ON ELEVATED WBC, FINDINGS OF PNEUMONIA ON RADIOGRAPHICAL STUDIES, TACHYCARDIA IN 110'S NO EVIDENCE OF SEVERE SEPSIS OR SEPTIC SHOCK NO FEVER, NO HYPOTENSION, NORMAL RENAL AND HEPATIC FUNCTION PT DOES HAVE ELEVATED GLUCOSE, WITH NO HISTORY OF DIABETES. SUSPECT IS STRESS/I LLNESS REACTION. NO DETERIORATION IN PT'S CONDITION DURING ER STAY 1845--FOCUS EXAM DONE. 2009--PT REMAINS AWAKE AND ORIENTED X 4; O2 SAT 94% ON BIPAP, RESPIRATIONS EVEN AND UNLABORED WITH INCREASED AERATION AND DECREASED WHEEZING/RHONCHI; HR 110, BP 141/72. REVIEWED PRIOR RECORDS, INCLUDING ER VISITS, ADMITS, H&P'S, CONSULTS, TESTS/PROCEDURES, DISCHARGE SUMMARIES. DISCUSSED TEST RESULTS WITH PT AND , NEED FOR ADMIT AND PT AND AGREE WITH PLAN OF CARE. ECG Initial ECG Impression Date: Aug 06, 2022 Initial ECG Impression Time: 18:04 Initial ECG Rate: 110 Initial ECG Rhythm: S.Tach (RBBB) Initial ECG Intervals AK 181 QRS 144 QT/QTC 359/424 Initial ECG Comparisson: Changed Comment RBBB IS NEW COMPARED TO MOST RECENT EKG 10/24/2016 INTERPRETED BY ME Diagnostic Imaging Comments CXR--PER RADIOLOGIST REPORT AT 1839 FINDINGS: Single chest with a cardiac contour within normal limits. There is moderate central venous congestion. There are perihilar and bibasilar infiltrates left greater than right but no confluent consolidations. There is no effusion or pneumothorax. There is tortuosity of thoracic ureter. Soft tissues and bony thorax are grossly unremarkable and age-appropriate. IMPRESSION: 1. Mild congestive heart failure. 2. Some perihilar and bibasilar atelectatic infiltrates are seen but no confluent consolidations. CT CHEST ANGIOGRAM--PER RADIOLOGIST REPORT AT 194 FINDINGS: There is no axillary adenopathy. There is also no mediastinal or hilar adenopathy. Cardiac contour is normal. Thoracic aortic contour is also normal with no evidence of aneurysm or dissection. Pulmonary outflow tract as well as the right and left pulmonary arteries, their segmental and subsegmental branches are patent with no evidence of intraluminal thrombus to suggest a pulmonary embolism. There is a column of fluid in the mid esophagus. Distal esophageal stricture may be present. Patchy alveolar consolidations are seen in the right lower lobe with few scattered infiltrates in the right middle lobe and right upper lobe. Some bronchiectatic changes are also present in the right lung. Left lung appears reasonably well aerated. Limited assessment of the abdomen shows no overall gross abnormalities. IMPRESSION: 1. Right lower lobe consolidation 2. Patchy infiltrates right middle lobe and right upper lobe. 3. There are some bronchiectatic changes extending from the right hilum. 4. No CT angiographic evidence for aortic aneurysm, dissection or pulmonary embolism. 5. There is a column of fluid in the mid esophagus. Distal esophageal stricture may be present, correlation with a nonemergent esophagram may be of further value. Reviewed: Reviewed by Nh Departure Communication (Admissions) 1941--SPOKE WITH DR. LECHUGA, ACCEPTS PT FOR ADMIT. 1948--REPORT TO E-ICU PHYSICIAN. Impression Primary Impression: Sepsis Additional Impressions: Acute on chronic respiratory failure with hypoxia and hypercapnia COPD exacerbation RBBB--NEW FROM 10/24/2016 Hyperglycemia Pneumonia Disposition: ADMITTED INPATIENT Condition: Improved Admissions Decision to Admit Reason: Admit from ER (General) Decision to Admit/Date: Aug 06, 2022 Time/Decision to Admit Time: 19:45 Departure-Patient Inst. Referrals: AUGUSTUS LECHUGA MD (PCP/Family) Primary Care Physician MATT WIGGINS DO Aug 06, 2022 18:04
[2022-08-06 18:08] LABS: ABG BASE EXCESS 9.5 MMOL/L (-2.5-2.5); ABG OXYGEN SATURATION 93 % (94-100); ABG PO2 67 MMHG (79-93)
[2022-08-06 18:09] LABS: BASOPHILS # (AUTO) 0.1 10^3/uL (0.0-0.1); BASOPHILS % (AUTO) 0 % (0-10); EOSINOPHILS % (AUTO) 0 % (0-10); HEMATOCRIT 51 % (35-52); HEMOGLOBIN 15.2 g/dL (11.5-16.0); LYMPHOCYTES # (AUTO) 2.5 10^3/uL (1.0-4.0); LYMPHOCYTES % (AUTO) 14 % (12-44); MEAN CORPUSCULAR HEMOGLOBIN 29 pg (25-34); MEAN CORPUSCULAR HGB CONC 30 g/dL (32-36); MEAN CORPUSCULAR VOLUME 98 fL (80-99); MEAN PLATELET VOLUME 10.6 fL (9.0-12.2); MONOCYTES # (AUTO) 1.5 10^3/uL (0.0-1.0); MONOCYTES % (AUTO) 8 % (0-12); NEUTROPHILS # (AUTO) 13.8 10^3/uL (1.8-7.8); NEUTROPHILS % (AUTO) 77 % (42-75); PLATELET COUNT 296 10^3/uL (130-400); WHITE BLOOD COUNT 17.9 10^3/uL (4.3-11.0)
[2022-08-06 18:09] LABS: ALLENS TEST POSITIVE; INSPIRED O2 100% BIPAP; VENTILATOR NO
[2022-08-06 18:10] LABS: PATIENT TEMP 35.7
[2022-08-06 18:12] LABS: ABG PCO2 103 MMHG (35-45); ABG PH 7.18 (7.37-7.43); ABG TCO2 41.4 MMOL/L (21.0-31.0)
[2022-08-06 18:16] LABS: ALBUMIN 4.5 GM/DL (3.2-4.5); CHLORIDE 100 MMOL/L (98-107); POTASSIUM 3.8 MMOL/L (3.6-5.0); SODIUM 143 MMOL/L (135-145)
[2022-08-06 18:17] LABS: CALCIUM 9.7 MG/DL (8.5-10.1)
[2022-08-06 18:18] LABS: GLUCOSE 211 MG/DL (70-105); TOTAL PROTEIN 7.5 GM/DL (6.4-8.2)
[2022-08-06 18:19] LABS: CARBON DIOXIDE 30 MMOL/L (21-32)
[2022-08-06 18:20] LABS: BILIRUBIN,TOTAL 0.3 MG/DL (0.1-1.0)
[2022-08-06 18:22] LABS: ALKALINE PHOSPHATASE 71 U/L (40-136); CREATININE SERUM 0.81 MG/DL (0.60-1.30); GFR ESTIMATED 80
[2022-08-06 18:23] LABS: BUN/CREATININE RATIO 20
[2022-08-06 18:24] LABS: FIBRIN DEGRADATION PRODUCTS 0.75 UG/ML (0.00-0.49); INR 0.9 (0.8-1.4); PROTHROMBIN TIME PATIENT 12.7 SEC (12.2-14.7)
[2022-08-06 18:25] LABS: ALANINE AMINOTRANSFERASE 16 U/L (0-55)
[2022-08-06 18:26] LABS: CREATINE KINASE 37 U/L (29-168)
--- NOTE | 2022-08-06 18:36 | Diagnostic Imaging Report ---
INDICATION: 66-year-old female with shortness of breath. COMPARISONS: CT chest 12/18/2020 FINDINGS: Single chest with a cardiac contour within normal limits. There is moderate central venous congestion. There are perihilar and bibasilar infiltrates left greater than right but no confluent consolidations. There is no effusion or pneumothorax. There is tortuosity of thoracic ureter. Soft tissues and bony thorax are grossly unremarkable and age-appropriate. IMPRESSION: 1. Mild congestive heart failure. 2. Some perihilar and bibasilar atelectatic infiltrates are seen but no confluent consolidations. Dictated by: Dictated on workstation # [id number]
[2022-08-06 18:39] LABS: BAND NEUTROPHILS 2 %; ERYTHROCYTE SEDIMENTATION RATE 4 MM/HR (0-30); LYMPHOCYTES % (MANUAL) 15 %; MONOCYTES % (MANUAL) 6 %; NEUTROPHILS % (MANUAL) 77 %; PLATELET ESTIMATE NORMAL; STOMATOCYTES SLIGHT
[2022-08-06 18:53] LABS: BILIRUBIN,URINE NEGATIVE (NEGATIVE); CLARITY,URINE SL CLOUDY; COLOR,URINE YELLOW; GLUCOSE, URINE (UA) NEGATIVE (NEGATIVE); KETONES,URINE NEGATIVE (NEGATIVE); LEUKOCYTE ESTERASE ,URINE NEGATIVE (NEGATIVE); NITRITE,URINE NEGATIVE (NEGATIVE); PROTEIN,URINE TRACE (NEGATIVE)
[2022-08-06] MEDS ORDERED: HOLD METFORMIN - RECEIVED CONTRAST 20 ML VIAL IV SCH (19:00)
[2022-08-06] MEDS ORDERED: NS 100 ML (IVPB) BAG IV ONE (19:00)
[2022-08-06] MEDS ORDERED: IOHEXOL 350 MG/ML 100 ML (OMNIPAQUE 350) VIAL IV ONE (19:00)
[2022-08-06 19:13] LABS: BENZODIAZEPINES SCREEN URINE POSITIVE (NEGATIVE); OPIATE SCREEN URINE POSITIVE (NEGATIVE)
[2022-08-06 19:14] LABS: AMPHETAMINE SCREEN, URINE NEGATIVE (NEGATIVE); BARBITURATE SCREEN URINE NEGATIVE (NEGATIVE); CANNABINOID SCREEN, URINE NEGATIVE (NEGATIVE); COCAINE SCREEN URINE NEGATIVE (NEGATIVE); METHADONE STAT NEGATIVE (NEGATIVE); OXYCODONE STAT NEGATIVE (NEGATIVE); PROPOXYPHENE STAT NEGATIVE (NEGATIVE); TRICYCLIC ANTIDEPRESSANTS SCRE NEGATIVE (NEGATIVE)
[2022-08-06 19:35] LABS: ABG BASE EXCESS 8.6 MMOL/L (-2.5-2.5); ABG OXYGEN SATURATION 92 % (94-100); ABG PO2 63 MMHG (79-93); ABG TCO2 39.1 MMOL/L (21.0-31.0)
[2022-08-06 19:37] LABS: ALLENS TEST YES-POS; INSPIRED O2 70%; VENTILATOR NO
[2022-08-06 19:38] LABS: ABG PCO2 92 MMHG (35-45); ABG PH 7.22 (7.37-7.43); PATIENT TEMP 36.6
--- NOTE | 2022-08-06 19:39 | Diagnostic Imaging Report ---
INDICATION: 68-year-old female with severe shortness of breath and elevated D-dimer, assess for pulmonary embolism. COMPARISONS: 12/18/2020 TECHNIQUE: Helical axial tomograms of the chest are obtained after administration of contrast. Multiplanar maximum intensity projection images were obtained FINDINGS: There is no axillary adenopathy. There is also no mediastinal or hilar adenopathy. Cardiac contour is normal. Thoracic aortic contour is also normal with no evidence of aneurysm or dissection. Pulmonary outflow tract as well as the right and left pulmonary arteries, their segmental and subsegmental branches are patent with no evidence of intraluminal thrombus to suggest a pulmonary embolism. There is a column of fluid in the mid esophagus. Distal esophageal stricture may be present. Patchy alveolar consolidations are seen in the right lower lobe with few scattered infiltrates in the right middle lobe and right upper lobe. Some bronchiectatic changes are also present in the right lung. Left lung appears reasonably well aerated. Limited assessment of the abdomen shows no overall gross abnormalities. IMPRESSION: 1. Right lower lobe consolidation 2. Patchy infiltrates right middle lobe and right upper lobe. 3. There are some bronchiectatic changes extending from the right hilum. 4. No CT angiographic evidence for aortic aneurysm, dissection or pulmonary embolism. 5. There is a column of fluid in the mid esophagus. Distal esophageal stricture may be present, correlation with a nonemergent esophagram may be of further value. Dictated by: Dictated on workstation # [id number]
[2022-08-06] MEDS ORDERED: NS IV 1000 ML 1,000 ML IV SCH (20:00)
[2022-08-06 20:10] LABS: BACTERIA,URINE TRACE /HPF; WBC,URINE RARE /HPF
[2022-08-06] MEDS ORDERED: fentaNYL INJ 100 MCG/2 ML AMP IVP ONE (20:30)
[2022-08-06 20:44] VITALS: BP 130/71
[2022-08-06 21:02] VITALS: BP 130/71
[2022-08-06] MEDS ORDERED: RT-ALBUTEROL/IPRATROPIUM 3 ML (DUONEB) VIAL INH PRN (21:30)
[2022-08-06] MEDS ORDERED: ONDANSETRON 4 MG/2 ML (SDV) Z0FRAN IV PRN (22:30)
[2022-08-06] MEDS ORDERED: ACETAMINOPHEN 500 MG TAB (TYLENOL) PO PRN (22:30)
[2022-08-06 22:33] VITALS: BP 127/70
[2022-08-06] MEDS: RT-ALBUTEROL/IPRATROPIUM 3 ML (DUONEB) VIAL INH SCH (22:33)
[2022-08-06] MEDS: ENOXAPARIN 40 MG/0.4 ML (LOVENOX) SYR SC SCH (22:43)
[2022-08-06] MEDS: PANTOPRAZOLE 40 MG (PROTONIX) VIAL IV SCH (22:43)
[2022-08-06] MEDS ORDERED: EPINEPHrine 1 MG INJECTION 4 MG in NS (IVPB) 248 ML IV SCH (22:45)
[2022-08-06 22:48] LABS: ABG BASE EXCESS 4.9 MMOL/L (-2.5-2.5); ABG OXYGEN SATURATION 98 % (94-100); ABG PO2 94 MMHG (79-93); ABG TCO2 34.3 MMOL/L (21.0-31.0); ALLENS TEST YES-POS
[2022-08-06 22:49] LABS: INSPIRED O2 70%; PATIENT TEMP 36.8; VENTILATOR NO
[2022-08-06 22:50] LABS: ABG PCO2 77 MMHG (35-45); ABG PH 7.24 (7.37-7.43)
[2022-08-06] MEDS: NOREPINEPHRINE 8 MG/250 ML 250 ML IV SCH (23:00)
[2022-08-06] MEDS: VASOPRESSIN INJECTION 20 UNIT in NS (IVPB) 100 ML IV SCH (23:00)
[2022-08-06] MEDS: LACTATED RINGERS 1,000 ML IV SCH (23:11)
[2022-08-06] MEDS: fentaNYL INJ 100 MCG/2 ML AMP IV PRN (23:11)
[2022-08-07] MEDS: CEFEPIME 1,000 MG/NS 50 ML IVPB IV SCH ×8 (00:46→17:48)
[2022-08-07] MEDS: methylPREDNISolone 125 MG (Solu-MEDROL) VIAL IV SCH ×4 (00:46→17:47)
[2022-08-07] MEDS: fentaNYL INJ 100 MCG/2 ML AMP IV PRN ×4 (00:58→14:13)
[2022-08-07 02:49] VITALS: BP 117/52
[2022-08-07] MEDS: RT-ALBUTEROL/IPRATROPIUM 3 ML (DUONEB) VIAL INH SCH ×3 (02:49→10:32)
[2022-08-07 05:08] LABS: BASOPHILS # (AUTO) 0.1 10^3/uL (0.0-0.1); BASOPHILS % (AUTO) 0 % (0-10); EOSINOPHILS # (AUTO) 0.2 10^3/uL (0.0-0.3); EOSINOPHILS % (AUTO) 1 % (0-10); HEMATOCRIT 43 % (35-52); HEMOGLOBIN 13.1 g/dL (11.5-16.0); LYMPHOCYTES # (AUTO) 0.7 10^3/uL (1.0-4.0); LYMPHOCYTES % (AUTO) 4 % (12-44); MEAN CORPUSCULAR HEMOGLOBIN 30 pg (25-34); MEAN CORPUSCULAR HGB CONC 31 g/dL (32-36); MEAN CORPUSCULAR VOLUME 97 fL (80-99); MONOCYTES # (AUTO) 1.2 10^3/uL (0.0-1.0); MONOCYTES % (AUTO) 6 % (0-12); NEUTROPHILS # (AUTO) 17.5 10^3/uL (1.8-7.8); NEUTROPHILS % (AUTO) 89 % (42-75); PLATELET COUNT 225 10^3/uL (130-400); WHITE BLOOD COUNT 19.8 10^3/uL (4.3-11.0)
[2022-08-07 05:27] LABS: ALBUMIN 3.7 GM/DL (3.2-4.5); BILIRUBIN,TOTAL 0.3 MG/DL (0.1-1.0); CALCIUM 8.9 MG/DL (8.5-10.1); CREATININE SERUM 0.74 MG/DL (0.60-1.30); MAGNESIUM 1.5 MG/DL (1.6-2.4); PHOSPHORUS 2.2 MG/DL (2.3-4.7); POTASSIUM 3.3 MMOL/L (3.6-5.0)
[2022-08-07] MEDS ORDERED: POTASSIUM CL 10MEQ/50ML IVPB 50 ML IV SCH (06:15)
[2022-08-07] MEDS ORDERED: NS IV 500 ML 500 ML IV PRN (06:15)
[2022-08-07] MEDS ORDERED: POTASSIUM CL 10MEQ/50ML IVPB 200 ML IV ONE (06:19)
[2022-08-07] MEDS ORDERED: MAGNESIUM 1 GM/100 ML IVPB 400 ML IV ONE (06:19)
[2022-08-07] MEDS: LACTATED RINGERS 1,000 ML IV SCH (06:26)
[2022-08-07] MEDS: MAGNESIUM 1 GM/100 ML IVPB 100 ML IV SCH ×4 (06:26→10:11)
[2022-08-07] MEDS: inSUlin ASPART (NovoLOG) 1 UNIT/0.01 ML (CHARGE PER UNIT) SC SCH ×4 (06:27→21:19)
[2022-08-07 07:02] LABS: ABG BASE EXCESS 5.3 MMOL/L (-2.5-2.5); ABG OXYGEN SATURATION 97 % (94-100); ABG PCO2 59 MMHG (35-45); ABG PO2 75 MMHG (79-93); ABG TCO2 32.8 MMOL/L (21.0-31.0)
[2022-08-07 07:05] LABS: ALLENS TEST YES-POS; INSPIRED O2 45%; PATIENT TEMP 36.6; VENTILATOR NO
[2022-08-07 07:07] LABS: ABG PH 7.34 (7.37-7.43)
[2022-08-07] MEDS ORDERED: FLU QUAD HIGH DOSE 240 MCG/0.7 ML 2022-23 (FLUZONE) IM ONE (07:15)
--- NOTE | 2022-08-07 07:50 | Diagnostic Imaging Report ---
INDICATION: Pneumonia, respiratory failure and sepsis. AP view of the chest is obtained with comparison made to study one day earlier. Similar to the previous study, heart size is at the upper limits of normal. There is background air trapping. Mildly prominent interstitial markings are again noted. There is no pneumothorax, consolidation or significant adverse change. There are degenerative findings in the acromioclavicular joints with probable old left distal clavicle fracture. Surgical findings are seen in the cervical spine. IMPRESSION: Background emphysema and prominent interstitial markings without new infiltrate, pneumothorax or other adverse change. Dictated by: Dictated on workstation # [id number]
[2022-08-07] MEDS ORDERED: KCL 20 MEQ TAB (K-DUR) PO NR (08:30)
--- NOTE | 2022-08-07 08:40 | History & Physical-Hospitalist ---
History of Present Illness HPI/Chief Complaint Pt is a 66yoCF with a PMH of COPD who presented to the ER due to SOB. She was found to have oxygen saturation sin the 70s on her baseline 4lpm. She attempted to use her rescue inhaler yesterday without much improvement. She actually saw Dr Man yesterday and he gave her a sample of Spiriva to use. When her checked on her around 1600 he could hardly wake her. EMS was summoned to her house due to this and her SOB. They placed her on 8lpm and sats improved to 85%. She seemed quiet lethargic to the ER and was placed on BiPAP. ABG showed pCO2 of 103. She was admitted to the ICU for further management. She states she feels betetr this morning and that this has happened in the past when "her gases get mixed up." Her only request now is to resume her home hydrocodone because her back and knee is hurting. Source: patient Date Seen 08/07/22 Time Seen by a Provider: 08:40 Attending Physician Amauri Man MD PCP Admitting Physician: Amauri Man MD Attending Physician: Amauri Man MD Referring Physician Date of Admission Aug 06, 2022 at 20:33 Home Medications & Allergies Home Medications Reviewed patient Home Medication Reconciliation performed by pharmacy medication reconciliations locate technician and/or nursing. Patients Allergies have been reviewed. Allergies Allergies Coded Allergies morphine (Unverified Adverse Reaction, Mild, RASH, 10/03/18) Past Azgpwil-Eghvzm-Yqcprl Hx Patient Social History Marrital Status: Tobacco Use?: No Tobacco type used: Cigarettes Smoking Status: Former Smoker Substance use?: No Alcohol Use?: No Pt feels they are or have been: No Immunizations Up To Date Date of Influenza Vaccine: Feb 14, 2022 First/Initial COVID19 Vaccinat: YES Second COVID19 Vaccination Rohan: YES Date of Pneumonia Vaccine: Jul 24, 2016 Seasonal Allergies Seasonal Allergies: No Current Status status: No status: No Advance Directives: No Communicates: Verbally Primary Language: Syrian Preferred Spoken Language: Syrian Is interpretation needed?: No Implanted or Applied Medical D: None Past Medical History Surgeries: Orthopedic COPD [employer] History: Menopausal Arthritis, Chronic Back Pain Loss of Vision: Bilateral Hearing Impairment: Denies Anxiety Blood Disorders: No Adverse Reaction/Blood Tranf: No Family Medical History Reviewed Nursing Family Hx Bremaria de jesus 19 MOTHER Congenital heart disease 19 FATHER 19 MOTHER Hypertension 19 FATHER 19 MOTHER Myocardial infarction 19 MOTHER Prostate cancer 19 FATHER Review of Systems Constitutional: see HPI Physical Exam Physical Exam Vital Signs Vital Signs - First Documented 08/06/22 08/06/22 08/06/22 17:49 17:50 18:00 Temp 36.8 Pulse 114 Resp 30 B/P (MAP) 143/86 (105) Pulse Ox 86 O2 Delivery Nasal Cannula O2 Flow Rate 4.00 FiO2 100 Capillary Refill : Greater Than 3 Seconds Height, Weight, BMI Height: 5'8.00" Weight: 244lbs. 6.0oz. 110.424223jn; 36.50 BMI Method:Stated General Appearance: No Apparent Distress, WD/WN, Obese Respiratory: Lungs Clear, No Accessory Muscle Use; No Wheezing; Other (on 4lpm) Cardiovascular: Regular Rate, Rhythm, No Murmur Gastrointestinal: Normal Bowel Sounds, Non Tender, Soft Neurologic/Psychiatric: Alert, Oriented x3 (but occasionally did not answer questions appropriately) Results Results/Procedures Labs Laboratory Tests 08/08/22 04:33 08/09/22 05:22 Patient resulted labs reviewed. Imaging: Reviewed Imaging Report Imaging [facility], [place] NAME: MELY MOREIRA [facility] REC#: [id number] PT STATUS: REG ER : 1955 PHYSICIAN: MATT WIGGINS DO ADMIT DATE: 08/06/22/ER Signed Date of Exam:08/06/22 CT ANGIO CHEST W (R/O PE) INDICATION: 68-year-old female with severe shortness of breath and elevated D-dimer, assess for pulmonary embolism. COMPARISONS: 12/18/2020 TECHNIQUE: Helical axial tomograms of the chest are obtained after administration of contrast. Multiplanar maximum intensity projection images were obtained FINDINGS: There is no axillary adenopathy. There is also no mediastinal or hilar adenopathy. Cardiac contour is normal. Thoracic aortic contour is also normal with no evidence of aneurysm or dissection. Pulmonary outflow tract as well as the right and left pulmonary arteries, their segmental and subsegmental branches are patent with no evidence of intraluminal thrombus to suggest a pulmonary embolism. There is a column of fluid in the mid esophagus. Distal esophageal stricture may be present. Patchy alveolar consolidations are seen in the right lower lobe with few scattered infiltrates in the right middle lobe and right upper lobe. Some bronchiectatic changes are also present in the right lung. Left lung appears reasonably well aerated. Limited assessment of the abdomen shows no overall gross abnormalities. IMPRESSION: 1. Right lower lobe consolidation 2. Patchy infiltrates right middle lobe and right upper lobe. 3. There are some bronchiectatic changes extending from the right hilum. 4. No CT angiographic evidence for aortic aneurysm, dissection or pulmonary embolism. 5. There is a column of fluid in the mid esophagus. Distal esophageal stricture may be present, correlation with a nonemergent esophagram may be of further value. Dictated by: Dictated on workstation # [id number] Dict: 08/06/221924 Trans: 08/06/221936 CV [id number] Interpreted by: ALIYAH THOMAS MD Electronically signed by: ALIYAH THOMAS MD 08/06/221936 [facility], [place] NAME: MELY MOREIRA [facility] REC#: [id number] PT STATUS: REG ER : 1955 PHYSICIAN: MATT WIGGINS DO ADMIT DATE: 08/06/22/ER Signed Date of Exam:08/06/22 CHEST 1 VIEW, AP/PA ONLY INDICATION: 66-year-old female with shortness of breath. COMPARISONS: CT chest 12/18/2020 FINDINGS: Single chest with a cardiac contour within normal limits. There is moderate central venous congestion. There are perihilar and bibasilar infiltrates left greater than right but no confluent consolidations. There is no effusion or pneumothorax. There is tortuosity of thoracic ureter. Soft tissues and bony thorax are grossly unremarkable and age-appropriate. IMPRESSION: 1. Mild congestive heart failure. 2. Some perihilar and bibasilar atelectatic infiltrates are seen but no confluent consolidations. Dictated by: Dictated on workstation # [id number] Dict: 08/06/22 183 Trans: 08/06/221850 CVB [id number] Interpreted by: ALIYAH THOMAS MD Electronically signed by: ALIYAH THOMAS MD 08/06/22 4000 Assessment/Plan Admission Diagnosis acute on chronic respiratory failure COPD exacerabtion sepsis due to PNA Admission Status: Inpatient Order (span 2 midnights) Reason for Inpatient Admission: see below Assessment and Plan acute on chronic respiratory failure COPD exacerabtion sepsis due to PNA Continue IV abx Off BiPAP now, continue HS and PRN TeleICU consulted Continue steroids Await cultures Chronic Back Pain Continue home pain regimen Discussed with Dr Man regarding her pain regimen Seems to also fill Xanax- will hold this given hypercapnia Elevated blood sugars, Likely due to steroids Does not appear to have a history of DM A1c pending SSI Hypomagnesemia Hypokalemia Replace per protocol Diagnosis/Problems Diagnosis/Problems (1) COPD exacerbation Status: Acute (2) Sepsis Status: Acute Qualifiers: Sepsis type: sepsis due to unspecified organism Sepsis acute organ dysfunction status: without acute organ dysfunction Qualified Codes: A41.9 - Sepsis, unspecified organism (3) Pneumonia Status: Acute Qualifiers: Pneumonia type: due to unspecified organism Laterality: right Lung location: lower lobe of lung Qualified Codes: J18.9 - Pneumonia, unspecified organism (4) Acute on chronic respiratory failure with hypoxia and hypercapnia Status: Acute JOHN BURGOS MD Aug 07, 2022 08:40
[2022-08-07] MEDS: VASOPRESSIN INJECTION 20 UNIT in NS (IVPB) 100 ML IV SCH ×2 (09:52→20:48)
--- NOTE | 2022-08-07 10:19 | Tele-ICU Consult ---
History of Present Illness History of Present Illness Date Seen by Provider: Aug 07, 2022 Time Seen by Provider: 10:19 Date of Admission (Tele-ICU Physician , consultation as per request of PCP Service provided via interactive audio and video telecommunications E-CARE system to a patient admitted to ICU bed in [facility]. Available chart/ vitals / labs / Images reviewed H&P is from ER notes Patient's information available about PMH, Shx, Fhx allergy reviewed inEMR. ROS as per chart and RN report Now in ICU, hemodynamically stable Video assessment done using teleICU camera, rest of exam as per RN Discussed with RN. Hospital course: (3.23) Admitted a 66y/o sepsis PNA, Acute COPD exacerbation, A/C respiratory failure A/P Acute resp failure with severe resp acidosis ( CT Ch NEG for PE 3.23 0 - NIPPV last night - Co2 closer to baseline now - - cont prn bipap and for night sleep -carepfull with benzo and pain mds AECOPD - cont iv steroids nebs RLL PNA - cont abx for CAP\\ - might need re-eval esophagus ? stricture , ? 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 Discussed with RN to reach out if any questions or concerns A total of31 minutes of critical care time was devoted to this patient today, required to treat and/or prevent further deterioration of critical care condition ( as above ) . I am remotely monitoring this patient from another state. I am unable to do the bedside exam, and history/physical and pertinent information is taken from other notes in the computer and bedside staff. . Allergies and Home Medications Allergies Coded Allergies: morphine (Unverified Adverse Reaction, Mild, RASH, 10/03/18) Home Medications Alprazolam 1 Mg Tablet, 1 MG PO Q8H PRN for ANXIETY, (Reported) Aripiprazole 5 Mg Tablet, 5 MG PO DAILY, (Reported) Celecoxib 100 Mg Capsule, 100 MG PO BID, (Reported) Duloxetine HCl 60 Mg Capsule.dr, 60 MG PO DAILY, (Reported) Gabapentin 300 Mg Capsule, 300 MG PO TID PRN for NEUROPATHY PAIN, (Reported) Hydrocodone Bit/Acetaminophen 1 Each Tablet, 1 TAB PO Q4H PRN for PAIN-MODERATE, (Reported) Ibuprofen/Diphenhydramine Cit 1 Each Tablet, 1 TAB PO HS PRN for SLEEP, (Reported) Prednisone 20 Mg Tab, 20 MG PO DAILY Take 2 tabs with breakfast for 4 days then 1 tab for 4 days. Prescribed by: AUGUSTUS LECHUGA on 10/05/18 0831 Tiotropium Virden 1 Inh Aerp, 1 CAP IH DAILY PRN for SHORTNESS OF BREATH, (Reported) Past Medical/Social/Family Hx Patient Social History Tobacco Use?: No Tobacco type used: Cigarettes Smoking Status: Former Smoker Substance use?: No Alcohol Use?: No Pt stated abuse/neglect: No Immunizations Up To Date Influenza Vaccine Up-to-Date: Yes; Up-to-Date First/Initial COVID19 Vaccinat: YES Second COVID19 Vaccination Rohan: YES Date of Pneumonia Vaccine: Jul 24, 2016 Current Status status: No status: No Advance Directives: No Communicates: Verbally Primary Language: Belarusian Preferred Spoken Language: Belarusian Is interpretation needed?: No Implanted or Applied Medical D: None Review of Systems Constitutional: see HPI Focused Exam Lactate Level 08/06/22 18:02: Lactic Acid Level 1.20 Height, Weight, BMI Height: 5'8.00" Weight: 244lbs. 6.0oz. 110.037558zv; 36.50 BMI Method:Stated Time of Focused Exam: 18:45 Exam Exam Patient acknowledged, consented, and participated in this virtual visit which was conducted using real time audio/video Vital Signs Date Time Temp Pulse Resp B/P (MAP) Pulse Ox O2 Delivery O2 Flow Rate FiO2 08/07/22 10:00 92 17 136/83 (101) 93 High Flow N/C 6.00 08/07/22 09:52 96 128/62 08/07/22 09:00 96 13 128/62 (82) 95 High Flow N/C 6.00 08/07/22 08:00 35.9 08/07/22 08:00 101 27 114/61 (74) 93 High Flow N/C 6.00 08/07/22 07:35 88 High Flow N/C 5.00 08/07/22 07:35 93 High Flow N/C 6.00 08/07/22 07:22 93 High Flow N/C 5.00 08/07/22 07:00 93 24 119/61 (76) 96 High Flow N/C 6.00 08/07/22 07:00 94 08/07/22 06:00 94 18 133/84 (100) 97 NIV Bilevel 45.00 08/07/22 05:00 96 17 128/68 (88) 96 NIV Bilevel 45.00 08/07/22 04:00 95 16 127/66 (86) 98 NIV Bilevel 45.00 08/07/22 04:00 96 NIV Bilevel 45 08/07/22 03:00 93 13 137/116 (123) 96 NIV Bilevel 45.00 08/07/22 02:53 NIV Bilevel 45.00 08/07/22 02:49 92 14 99 60.00 08/07/22 02:00 96 14 117/52 (73) 98 NIV Bilevel 60.00 08/07/22 01:00 94 08/07/22 01:00 93 14 124/77 (93) 99 NIV Bilevel 60.00 08/07/22 00:00 93 14 117/76 (90) 98 NIV Bilevel 60.00 08/06/22 23:59 97 NIV Bilevel 60 08/06/22 23:00 100 15 133/83 (100) 96 NIV Bilevel 60.00 08/06/22 22:33 99 14 97 60.00 08/06/22 22:30 96 16 127/70 (89) 97 NIV Bilevel 60.00 08/06/22 22:00 101 17 129/69 (89) 96 NIV Bilevel 60.00 08/06/22 21:30 102 18 125/69 (87) 95 NIV Bilevel 60.00 08/06/22 21:15 109 16 125/69 (87) 94 NIV Bilevel 60.00 08/06/22 21:02 36.8 112 98 70 08/06/22 21:00 NIV Bilevel 60 08/06/22 21:00 109 15 132/72 (92) 95 NIV Bilevel 60.00 08/06/22 20:55 102 08/06/22 20:45 103 15 130/71 (90) 98 NIV Bilevel 60.00 08/06/22 20:44 112 16 98 70.00 08/06/22 20:35 36.3 101 18 130/71 (90) NIV Bilevel 60.00 08/06/22 20:20 36.8 110 19 143/75 96 NIV Bilevel 70.00 08/06/22 18:59 117 28 94 70.00 08/06/22 18:57 NIV Bilevel 08/06/22 18:00 100 08/06/22 17:55 98 100.00 08/06/22 17:50 36.8 114 30 143/86 (105) 86 Nasal Cannula 8.00 08/06/22 17:49 86 Nasal Cannula 8.00 08/06/22 17:49 Nasal Cannula 4.00 I & O 08/07/22 07:00 Intake Total 2650 ml Output Total 1700 ml Balance 950 ml Height & Weight Height: 5'8.00" Weight: 244lbs. 6.0oz. 110.465308da; 36.50 BMI Method:Stated General Appearance: Other Respiratory: Other (IMPROVED AERATION, DECREASED RHONCHI ON BIPAP, RESPIRATIONS LESS LABORED) Cardiovascular: Tachycardia Capillary Refill: Greater Than 3 Seconds (FEET COLD, DUSKY, WITH POOR CAP REFILL. FINGERS ARE NO LONGER DUSKY AND HAVE IMPROVED CAPILLARY REFILL. ) Gastrointestinal: non tender, soft Results Lab Laboratory Tests 08/06/22 18:02 08/07/22 04:05 Assessment/Plan Assessment/Plan 1 EDGAR PERKINS MD Aug 07, 2022 10:19
[2022-08-07] MEDS ORDERED: POT PHOS/NA PHOS (K-PHOS NEUTRAL) PO NR (10:30)
[2022-08-07] MEDS ORDERED: HYDR-3820 PO (11:24)
[2022-08-07] MEDS ORDERED: ALBU18HF2 INH (11:24)
[2022-08-07] MEDS ORDERED: TIOT4MIS3 IH (11:24)
[2022-08-07] MEDS ORDERED: GBPN600T PO (11:24)
[2022-08-07] MEDS ORDERED: GABAPENTIN 600 MG (NEURONTIN) TAB PO PRN (12:00)
[2022-08-07] MEDS: NOREPINEPHRINE 8 MG/250 ML 250 ML IV SCH (12:05)
[2022-08-07] MEDS: RT-ALBUTEROL HFA 8.5 GM INHALER IH SCH ×2 (15:17→21:37)
[2022-08-07] MEDS ORDERED: RT-ALBUTEROL HFA 8.5 GM INHALER IH SCH (18:00)
[2022-08-07] MEDS: CELECOXIB 100 MG (CeleBREX) CAP PO SCH (20:52)
[2022-08-07] MEDS: ENOXAPARIN 40 MG/0.4 ML (LOVENOX) SYR SC SCH (20:52)
[2022-08-07] MEDS: PANTOPRAZOLE 40 MG (PROTONIX) VIAL IV SCH (20:52)
[2022-08-07] MEDS ORDERED: NON-FORMULARY MEDICATION 1 EA EA (Tiotropium Br/Olodaterol HCl (Stiolto Respimat Inhal Spr IH SCH (21:00)
[2022-08-08] MEDS: CEFEPIME 1,000 MG/NS 50 ML IVPB IV SCH ×8 (00:06→17:54)
[2022-08-08] MEDS: NOREPINEPHRINE 8 MG/250 ML 250 ML IV SCH (01:26)
[2022-08-08] MEDS: RT-ALBUTEROL HFA 8.5 GM INHALER IH SCH ×4 (02:32→22:05)
[2022-08-08 05:14] LABS: BASOPHILS % (AUTO) 0 % (0-10); EOSINOPHILS % (AUTO) 0 % (0-10); HEMATOCRIT 38 % (35-52); HEMOGLOBIN 12.1 g/dL (11.5-16.0); LYMPHOCYTES # (AUTO) 0.6 10^3/uL (1.0-4.0); LYMPHOCYTES % (AUTO) 3 % (12-44); MEAN CORPUSCULAR HEMOGLOBIN 30 pg (25-34); MEAN CORPUSCULAR HGB CONC 32 g/dL (32-36); MEAN CORPUSCULAR VOLUME 93 fL (80-99); MEAN PLATELET VOLUME 11.2 fL (9.0-12.2); MONOCYTES # (AUTO) 0.9 10^3/uL (0.0-1.0); MONOCYTES % (AUTO) 4 % (0-12); NEUTROPHILS # (AUTO) 18.5 10^3/uL (1.8-7.8); NEUTROPHILS % (AUTO) 91 % (42-75); PLATELET COUNT 189 10^3/uL (130-400); WHITE BLOOD COUNT 20.3 10^3/uL (4.3-11.0)
[2022-08-08] MEDS: MAGNESIUM 1 GM/100 ML IVPB 100 ML IV SCH (05:21)
[2022-08-08] MEDS: KCL 20 MEQ TAB (K-DUR) PO SCH (05:21)
[2022-08-08] MEDS: POTASSIUM CL 10MEQ/50ML IVPB 50 ML IV SCH (05:21)
[2022-08-08 05:27] LABS: ALBUMIN 3.8 GM/DL (3.2-4.5); POTASSIUM 4.1 MMOL/L (3.6-5.0)
[2022-08-08 05:28] LABS: CALCIUM 9.2 MG/DL (8.5-10.1)
[2022-08-08 05:29] LABS: TOTAL PROTEIN 6.3 GM/DL (6.4-8.2)
[2022-08-08 05:31] LABS: BILIRUBIN,TOTAL 0.4 MG/DL (0.1-1.0)
[2022-08-08 05:33] LABS: CREATININE SERUM 0.62 MG/DL (0.60-1.30); PHOSPHORUS 2.4 MG/DL (2.3-4.7)
[2022-08-08 05:36] LABS: MAGNESIUM 2.2 MG/DL (1.6-2.4)
[2022-08-08] MEDS: inSUlin ASPART (NovoLOG) 1 UNIT/0.01 ML (CHARGE PER UNIT) SC SCH ×4 (05:46→20:29)
--- NOTE | 2022-08-08 08:04 | Diagnostic Imaging Report ---
INDICATION: Respiratory failure and pneumonia. Time of Exam: 4:35 AM Correlation is made with prior chest one day earlier. Heart size is stable. There is some central congestion but no overt failure. No effusion or pneumothorax is identified. Extensive postop changes in the cervical spine are noted. IMPRESSION: Stable central congestion when compared with exam one day earlier. Dictated by: Dictated on workstation # [id number]
[2022-08-08] MEDS: DULoxetine 30 MG (CYMBALTA) CAP PO SCH (08:20)
[2022-08-08] MEDS: CELECOXIB 100 MG (CeleBREX) CAP PO SCH ×2 (08:20→20:28)
[2022-08-08] MEDS: predniSONE 20 MG TAB PO SCH (08:20)
[2022-08-08] MEDS: UMECLIDINIUM BROMIDE (INCRUSE ELLIPTA) 7'S IH SCH (09:21)
--- NOTE | 2022-08-08 09:49 | Tele-ICU Progress Note ---
Subjective Date Seen by a Provider: Aug 08, 2022 Subjective/Events-last exam (Tele-ICU Physician , Progress Note ) Service provided via interactive audio and video telecommunications E-CARE system to a patient admitted to ICU bed in [facility]. Patient is seen today due to persistent need of ICU care Available chart/ vitals / labs / Images reviewed Video assessment done using teleICU camera, rest of exam as per RN she is a 66 yr old CF with pmhx of copd severe on home o2 4l n/c prasented with increasing shortness of breath and wheezing. did not get better with nebuliser treatment. she was brought to ED where she is found to have moderate respiratory distress and on abg she has pco2 103. she is put on bipap and treated with nebuliser treatments, iv steroids and antibiotics with which she is feeling better today. Able to tolerate o2 with n/c. She is awake and alert and in no respiratory distress at rest. Impression. 1. Acute and Chr. respiratory failure clinically improving. 2. acute exaccerbation of COPD. 3.Acute bronchitis. 4. R/o esophageal stricture. 5. Possible aspiration pneumonia. 6. elevated blood sugars are probably due to steroids. Plan. 1. Continue antibiotics per PMD 2. bronchodilators. 3. suggest to get barium esophagogram once the patient is stable to r/o stricture. 4.DVT and Ulcer prophylaxis 5. HbA1c 5.4 Coordination of care with primary care physician and the consultants at bedside. I am remotely monitoring this patient from Tele icu station in [place]. I am unable to do the bedside exam, and history/physical and pertinent information is taken from other notes in the computer and bedside staff. Certain portions of this document may have been dictated utilizing voice recognition technology such as [employer]. Inherent to this technology, typographical and grammatical errors may exist. As much as I am diligent to identify and correct to these mistakes, some errors may remain in the document. Critical care time due to gated to this patient today is- 25 minutes-- Sepsis Event Evaluation Height, Weight, BMI Height: 5'8.00" Weight: 244lbs. 6.0oz. 110.823499lh; 36.50 BMI Method:Stated Focused Exam Lactate Level 08/06/22 18:02: Lactic Acid Level 1.20 Time of Focused Exam: 18:45 Exam Exam Patient acknowledged, consented, and participated in this virtual visit which was conducted using real time audio/video Vital Signs Date Time Temp Pulse Resp B/P (MAP) Pulse Ox O2 Delivery O2 Flow Rate FiO2 08/08/22 09:27 High Flow N/C 4.00 08/08/22 09:21 94 High Flow N/C 4.00 08/08/22 09:00 77 12 152/91 (108) 95 High Flow N/C 4.00 08/08/22 08:00 92 18 157/98 (117) 96 High Flow N/C 4.00 08/08/22 08:00 97 High Flow N/C 4.00 08/08/22 07:45 36.4 08/08/22 07:00 107 19 147/84 (105) 95 High Flow N/C 4.00 08/08/22 07:00 105 08/08/22 06:00 76 13 143/83 (103) 97 High Flow N/C 4.00 08/08/22 05:00 80 18 148/77 (100) 97 High Flow N/C 4.00 08/08/22 04:00 83 13 149/133 (138) 97 High Flow N/C 4.00 08/08/22 04:00 97 High Flow N/C 4.00 08/08/22 03:00 85 13 152/74 (100) 96 High Flow N/C 4.00 08/08/22 02:32 High Flow N/C 4.00 08/08/22 02:00 81 20 149/87 (107) 96 High Flow N/C 4.00 08/08/22 01:00 90 08/08/22 01:00 89 14 146/79 (101) 96 High Flow N/C 4.00 08/08/22 00:00 86 13 149/78 (101) 96 High Flow N/C 4.00 08/07/22 23:59 97 High Flow N/C 4.00 08/07/22 23:00 90 12 140/73 (95) 96 High Flow N/C 4.00 08/07/22 22:00 92 19 123/75 (91) 96 High Flow N/C 4.00 08/07/22 21:37 96 High Flow N/C 4.00 08/07/22 21:00 90 17 96 High Flow N/C 4.00 08/07/22 20:00 96 High Flow N/C 4.00 08/07/22 20:00 95 20 95 High Flow N/C 4.00 08/07/22 19:28 36.9 96 20 136/81 (99) 94 High Flow N/C 4.00 08/07/22 19:00 97 26 136/81 (99) 94 High Flow N/C 4.00 08/07/22 19:00 100 08/07/22 18:28 High Flow N/C 4.00 08/07/22 18:23 NIV Bilevel 45.00 08/07/22 18:00 89 16 129/67 (87) 94 High Flow N/C 4.00 08/07/22 17:00 84 11 95 High Flow N/C 4.00 08/07/22 16:00 86 29 124/71 (91) 95 High Flow N/C 4.00 08/07/22 15:19 95 High Flow N/C 4.00 08/07/22 15:18 36.2 08/07/22 15:06 96 High Flow N/C 4.00 08/07/22 15:00 82 9 114/79 (82) 95 High Flow N/C 4.00 08/07/22 14:00 87 13 114/63 (83) 95 High Flow N/C 4.00 08/07/22 13:00 96 11 135/68 (89) 92 High Flow N/C 4.00 08/07/22 13:00 100 08/07/22 12:05 100 120/68 08/07/22 12:00 98 20 120/68 (90) 96 High Flow N/C 4.00 08/07/22 12:00 96 High Flow N/C 4.00 08/07/22 11:49 36.8 08/07/22 11:10 High Flow N/C 4.00 08/07/22 11:05 93 High Flow N/C 4.00 08/07/22 11:00 95 23 116/70 (87) 96 NIV Bilevel 45.00 08/07/22 10:45 NIV Bilevel 45.00 08/07/22 10:32 94 High Flow N/C 6.00 08/07/22 10:00 92 17 136/83 (101) 93 High Flow N/C 6.00 08/07/22 09:52 96 128/62 I & O 08/08/22 07:00 Intake Total 4350 ml Output Total 3025 ml Balance 1325 ml Height & Weight Height: 5'8.00" Weight: 244lbs. 6.0oz. 110.885033gj; 36.50 BMI Method:Stated General Appearance: No Apparent Distress, WD/WN, Obese Respiratory: Lungs Clear, No Accessory Muscle Use; No Wheezing; Other (on 4lpm) Cardiovascular: Regular Rate, Rhythm, No Murmur Capillary Refill: Less Than 3 Seconds Gastrointestinal: non tender, soft Neurologic/Psychiatric: Alert, Oriented x3 (but occasionally did not answer questions appropriately) Results Lab Laboratory Tests 08/06/22 18:02 08/07/22 04:05 08/08/22 04:33 Assessment/Plan Assessment/Plan ABOVE Critical Care: Critically Ill Patient Time spent with patient (mins): 25 SIERRA LOVE MD Aug 08, 2022 09:49
[2022-08-08 11:20] VITALS: BP 162/82
[2022-08-08 11:23] VITALS: BP 162/82
--- NOTE | 2022-08-08 11:43 | Progress Note - Hospitalist ---
Subjective HPI/CC On Admission Date Seen by Provider: Aug 08, 2022 Pt is a 66yoCF with a PMH of COPD who presented to the ER due to SOB. She was found to have oxygen saturation sin the 70s on her baseline 4lpm. She attempted to use her rescue inhaler yesterday without much improvement. She actually saw Dr Man yesterday and he gave her a sample of Spiriva to use. When her checked on her around 1600 he could hardly wake her. EMS was summoned to her house due to this and her SOB. They placed her on 8lpm and sats improved to 85%. She seemed quiet lethargic to the ER and was placed on BiPAP. ABG showed pCO2 of 103. She was admitted to the ICU for further management. She states she feels betetr this morning and that this has happened in the past when "her gases get mixed up." Her only request now is to resume her home hydrocodone because her back and knee is hurting. Subjective/Events-last exam Pt reports feeling much better. She is requesting DC home. does not feel she is ready. Focused Exam Lactate Level 08/06/22 18:02: Lactic Acid Level 1.20 Time of Focused Exam: 18:45 Objective Exam Vital Signs Vital Signs Date Time Temp Pulse Resp B/P (MAP) Pulse Ox O2 Delivery O2 Flow Rate FiO2 08/08/22 11:23 36.9 85 20 162/82 (108) 96 08/08/22 11:20 High Flow N/C 5.00 08/07/22 04:00 45 Capillary Refill : Less Than 3 Seconds General Appearance: No Apparent Distress Respiratory: Lungs Clear, No Respiratory Distress Cardiovascular: Regular Rate, Rhythm, No Murmur Gastrointestinal: Normal Bowel Sounds, Soft Neurologic/Psychiatric: Alert, Oriented x3, Normal Mood/Affect Results/Procedures Lab Laboratory Tests 08/08/22 04:33 Patient resulted labs reviewed. Imaging: Reviewed Imaging Report Assessment/Plan Assessment and Plan Assess & Plan/Chief Complaint acute on chronic respiratory failure COPD exacerabtion sepsis due to PNA Continue IV abx TeleICU consulted Continue steroids NGTD on cultures Transfer to [facility] Chronic Back Pain Continue home pain regimen Discussed with Dr Man regarding her pain regimen Seems to also fill Xanax- will hold this given hypercapnia Elevated blood sugars, Likely due to steroids Does not appear to have a history of DM A1c 5.4 SSI Hypomagnesemia Hypokalemia Replace per protocol DVT ppx: Lovenox Critical Care Critically Ill Patient Diagnosis/Problems Diagnosis/Problems (1) COPD exacerbation Status: Acute (2) Sepsis Status: Acute Qualifiers: Sepsis type: sepsis due to unspecified organism Sepsis acute organ dysfunction status: without acute organ dysfunction Qualified Codes: A41.9 - Sepsis, unspecified organism (3) Pneumonia Status: Acute Qualifiers: Pneumonia type: due to unspecified organism Laterality: right Lung location: lower lobe of lung Qualified Codes: J18.9 - Pneumonia, unspecified organism (4) Acute on chronic respiratory failure with hypoxia and hypercapnia Status: Acute JOHN BURGOS MD Aug 08, 2022 11:43
[2022-08-08] MEDS ORDERED: NS (IVPB) 50 ML ONE (12:04)
--- NOTE | 2022-08-08 12:27 | Physical Therapy Progress Note ---
Therapy Progress Note Attempted to see patient for PT initial evaluation. Patient refused reporting she has not slept since and is too tired to do anything today. Will attempt PT evaluation at next available time. GILL DAVIS PT Aug 08, 2022 12:27
[2022-08-08 15:37] VITALS: BP 155/91
[2022-08-08 19:05] VITALS: BP 147/92
[2022-08-08] MEDS: PANTOPRAZOLE 40 MG (PROTONIX) VIAL IV SCH (20:28)
[2022-08-08] MEDS: ENOXAPARIN 40 MG/0.4 ML (LOVENOX) SYR SC SCH (20:28)
[2022-08-09] MEDS: CEFEPIME 1,000 MG/NS 50 ML IVPB IV SCH ×4 (00:12→06:00)
[2022-08-09 00:28] VITALS: BP 154/85
[2022-08-09] MEDS: RT-ALBUTEROL HFA 8.5 GM INHALER IH SCH ×2 (02:29→08:20)
[2022-08-09 03:25] VITALS: BP 149/84
[2022-08-09 05:38] LABS: BASOPHILS % (AUTO) 0 % (0-10); EOSINOPHILS % (AUTO) 0 % (0-10); HEMATOCRIT 39 % (35-52); HEMOGLOBIN 12.2 g/dL (11.5-16.0); LYMPHOCYTES # (AUTO) 1.5 10^3/uL (1.0-4.0); LYMPHOCYTES % (AUTO) 7 % (12-44); MEAN CORPUSCULAR HEMOGLOBIN 30 pg (25-34); MEAN CORPUSCULAR HGB CONC 32 g/dL (32-36); MEAN CORPUSCULAR VOLUME 94 fL (80-99); MEAN PLATELET VOLUME 10.8 fL (9.0-12.2); MONOCYTES # (AUTO) 1.2 10^3/uL (0.0-1.0); MONOCYTES % (AUTO) 6 % (0-12); NEUTROPHILS # (AUTO) 17.9 10^3/uL (1.8-7.8); NEUTROPHILS % (AUTO) 86 % (42-75); PLATELET COUNT 213 10^3/uL (130-400); WHITE BLOOD COUNT 20.7 10^3/uL (4.3-11.0)
[2022-08-09 05:51] LABS: ALBUMIN 3.8 GM/DL (3.2-4.5); POTASSIUM 3.8 MMOL/L (3.6-5.0)
[2022-08-09 05:52] LABS: CALCIUM 9.2 MG/DL (8.5-10.1)
[2022-08-09 05:53] LABS: TOTAL PROTEIN 6.4 GM/DL (6.4-8.2)
[2022-08-09 05:55] LABS: BILIRUBIN,TOTAL 0.6 MG/DL (0.1-1.0)
[2022-08-09] MEDS: inSUlin ASPART (NovoLOG) 1 UNIT/0.01 ML (CHARGE PER UNIT) SC SCH (05:56)
[2022-08-09 05:57] LABS: CREATININE SERUM 0.64 MG/DL (0.60-1.30)
[2022-08-09 06:00] LABS: MAGNESIUM 1.9 MG/DL (1.6-2.4)
[2022-08-09] MEDS: predniSONE 20 MG TAB PO SCH (06:01)
[2022-08-09] MEDS: POTASSIUM CL 10MEQ/50ML IVPB 50 ML IV SCH (06:16)
[2022-08-09] MEDS: KCL 20 MEQ TAB (K-DUR) PO SCH (06:17)
[2022-08-09] MEDS: MAGNESIUM 1 GM/100 ML IVPB 100 ML IV SCH ×3 (06:17→07:32)
[2022-08-09 07:58] VITALS: BP 182/84
[2022-08-09] MEDS ORDERED: KCL 20 MEQ TAB (K-DUR) PO ONE (08:00)
[2022-08-09] MEDS: UMECLIDINIUM BROMIDE (INCRUSE ELLIPTA) 7'S IH SCH (08:20)
[2022-08-09] MEDS: CELECOXIB 100 MG (CeleBREX) CAP PO SCH (08:31)
[2022-08-09] MEDS: DULoxetine 30 MG (CYMBALTA) CAP PO SCH (08:31)
[2022-08-09] MEDS ORDERED: PRED10TA22 PO (10:29)
[2022-08-09] MEDS ORDERED: CEFD300C3 PO (10:29)
--- NOTE | 2022-08-09 10:29 | Discharge Summary ---
Diagnosis/Chief Complaint Date of Admission Aug 06, 2022 at 8:33 pm Date of Discharge Admission Diagnosis acute on chronic respiratory failure COPD exacerabtion sepsis due to PNA Primary Care Augustus Lechuga MD Discharge Diagnosis (1) COPD exacerbation Status: Acute (2) Sepsis Status: Acute (3) Pneumonia Status: Acute (4) Acute on chronic respiratory failure with hypoxia and hypercapnia Status: Acute Discharge Summary Discharge Physical Exam Allergies: Coded Allergies: morphine (Unverified Adverse Reaction, Mild, RASH, 10/03/18) Vitals & I&Os Vital Signs Date Time Temp Pulse Resp B/P (MAP) Pulse Ox O2 Delivery O2 Flow Rate FiO2 08/09/22 08:25 High Flow N/C 4.00 08/09/22 08:20 94 08/09/22 07:58 36.8 79 20 182/84 (116) 08/07/22 04:00 45 General Appearance: No Apparent Distress, Chronically ill Respiratory: Lungs Clear, No Respiratory Distress Cardiovascular: Regular Rate, Rhythm, No Murmur Neurologic/Psychiatric: Alert, Oriented x3 Hospital Course Patient was admitted to the hospital secondary to acute on chronic hypoxic and hypercapnic respiratory failure due to COPD exacerbation. She was also found to have pneumonia on imaging. She initially required BiPAP but was able to be titrated off. She was titrated back down to her baseline 4 L/min. She was treated with IV antibiotics and steroids and did very well. She was able to be discharged home in stable and improved condition to follow-up with Dr. Lechuga to follow-up this hospital stay. Labs (last 24 hrs) Laboratory Tests 08/08/22 11:30: Glucometer 151H 08/08/22 15:37: Glucometer 126H 08/08/22 20:15: Glucometer 116H 08/09/22 05:22: White Blood Count 20.7H, Red Blood Count 4.14, Hemoglobin 12.2, Hematocrit 39, Mean Corpuscular Volume 94, Mean Corpuscular Hemoglobin 30, Mean Corpuscular Hemoglobin Concent 32, Red Cell Distribution Width 13.7, Platelet Count 213, Mean Platelet Volume 10.8, Immature Granulocyte % (Auto) 1, Neutrophils (%) (Auto) 86H, Lymphocytes (%) (Auto) 7L, Monocytes (%) (Auto) 6, Eosinophils (%) (Auto) 0, Basophils (%) (Auto) 0, Neutrophils # (Auto) 17.9H, Lymphocytes # (Auto) 1.5, Monocytes # (Auto) 1.2H, Eosinophils # (Auto) 0.0, Basophils # (Auto) 0.0, Immature Granulocyte # (Auto) 0.2H, Sodium Level 140, Potassium Level 3.8, Chloride Level 102, Carbon Dioxide Level 27, Anion Gap 11, Blood Urea Nitrogen 16, Creatinine 0.64, Estimat Glomerular Filtration Rate 97, BUN/Creatinine Ratio 25, Glucose Level 93, Calcium Level 9.2, Corrected Calcium 9.4, Phosphorus Level 2.0L, Magnesium Level 1.9, Total Bilirubin 0.6, Aspartate Amino Transf (AST/SGOT) 13, Alanine Aminotransferase (ALT/SGPT) 14, Alkaline Phosphatase 57, Total Protein 6.4, Albumin 3.8 Microbiology 08/06/22 Urine Culture - Final, Complete NO GROWTH 08/06/22 Blood Culture - Preliminary, Resulted No growth 08/06/22 MRSA Screen - Final, Complete MRSA not isolated Patient resulted labs reviewed. Pending Labs Laboratory Tests 08/09/22 05:22: White Blood Count 20.7, Red Blood Count 4.14, Hemoglobin 12.2, Hematocrit 39, Mean Corpuscular Volume 94, Mean Corpuscular Hemoglobin 30, Mean Corpuscular Hemoglobin Concent 32, Red Cell Distribution Width 13.7, Platelet Count 213, Mean Platelet Volume 10.8, Immature Granulocyte % (Auto) 1, Neutrophils (%) (Auto) 86, Lymphocytes (%) (Auto) 7, Monocytes (%) (Auto) 6, Eosinophils (%) (Auto) 0, Basophils (%) (Auto) 0, Neutrophils # (Auto) 17.9, Lymphocytes # (Auto) 1.5, Monocytes # (Auto) 1.2, Eosinophils # (Auto) 0.0, Basophils # (Auto) 0.0, Immature Granulocyte # (Auto) 0.2, Sodium Level 140, Potassium Level 3.8, Chloride Level 102, Carbon Dioxide Level 27, Anion Gap 11, Blood Urea Nitrogen 16, Creatinine 0.64, Estimat Glomerular Filtration Rate 97, BUN/Creatinine Ratio 25, Glucose Level 93, Calcium Level 9.2, Corrected Calcium 9.4, Phosphorus Level 2.0, Magnesium Level 1.9, Total Bilirubin 0.6, Aspartate Amino Transf (AST/SGOT) 13, Alanine Aminotransferase (ALT/SGPT) 14, Alkaline Phosphatase 57, Total Protein 6.4, Albumin 3.8 Imaging: Reviewed Imaging Report Discussion & Recommendations Discharge Planning: >30 minutes discharge planning Discharge Home Medications: Active Scripts Active Reported Stiolto Respimat Inhal [place] (Tiotropium Br/Olodaterol HCl) 2.5 Mcg-2.5 Mcg/Actuation Mist.inhal 2 Puff IH BID Ventolin Hfa (Albuterol Sulfate) 90 Mcg Hfa.aer.ad 2 Puff INH Q4H PRN Gabapentin 600 Mg Tablet 600 Mg PO TID PRN Hydrocodone-Acetamin 10-325 mg (Hydrocodone/Acetaminophen) 10 Mg-325 Mg Tablet 1 Ea PO Q4H PRN Alprazolam 1 Mg Tablet 1 Mg PO Q8H Celecoxib 100 Mg Capsule 100 Mg PO BID Duloxetine HCl 60 Mg Capsule.dr 60 Mg PO DAILY Instructions to patient/family Please see electronic discharge instructions given to patient. Copy Copies To 1: AUGUSTUS LECHUGA MD Problem Qualifiers (1) Sepsis: Sepsis type: sepsis due to unspecified organism Sepsis acute organ dysfunction status: without acute organ dysfunction Qualified Codes: A41.9 - Sepsis, unspecified organism (2) Pneumonia: Pneumonia type: due to unspecified organism Laterality: right Lung location: lower lobe of lung Qualified Codes: J18.9 - Pneumonia, unspecified organism JOHN BURGOS MD Aug 09, 2022 10:29 am
--- NOTE | 2022-08-09 10:30 | Discharge Inst-Simple/Standard ---
Discharge Inst-Standard Discharge Medications New, Converted or Re-Newed RX: Transmitted to Pharmacy Patient Instructions/Follow Up Plan of Care/Instructions/FU: Please continue to take your medications as written. Please follow up with your primary care doctor to follow up this hospital stay. Activity as Tolerated: Yes Discharge Diet: No Restrictions Return to The Hospital For: Chest pain, shortness of breath, fever, weakness, if you feel you are getting worse. JOHN BURGOS MD Aug 09, 2022 10:30 am
[2022-08-09 11:10] VITALS: BP 157/74
[2022-08-09 11:18] VITALS: BP 157/74
== END 2022-08-09 11:10 | disposition home or self-care (01) | DRG 871 ==
LOC: ER 17:48 → EDUNIT# 17:48 → ICU 20:33 → 4TH 08-08 10:25
PROVIDERS: ADMIT Internal Medicine; ATTEND Internal Medicine
PROC: 5A09357 Assistance with Respiratory Ventilation, Less than 24 Consecutive Hours, Continuous Positive Airway Pressure (ICD-10-PCS; 2022-08-06)
PROC: 8E0ZXY6 Isolation (ICD-10-PCS; 2022-08-06)
PROC: 5A0945A Assistance with Respiratory Ventilation, 24-96 Consecutive Hours, High Flow/Velocity Cannula (ICD-10-PCS; principal; 2022-08-07)
DX: A41.9 Sepsis, unspecified organism (principal); J18.9 Pneumonia, unspecified organism; J96.21 Acute and chronic respiratory failure with hypoxia; J96.22 Acute and chronic respiratory failure with hypercapnia; J44.1 Chronic obstructive pulmonary disease with (acute) exacerbation; J44.0 Chronic obstructive pulmonary disease with (acute) lower respiratory infection; M54.9 Dorsalgia, unspecified; E87.6 Hypokalemia; E83.42 Hypomagnesemia; R73.9 Hyperglycemia, unspecified; T38.0X5A Adverse effect of glucocorticoids and synthetic analogues, initial encounter; G89.29 Other chronic pain; F41.9 Anxiety disorder, unspecified; M19.90 Unspecified osteoarthritis, unspecified site; J20.9 Acute bronchitis, unspecified; I45.10 Unspecified right bundle-branch block; Z79.899 Other long term (current) drug therapy; Z87.891 Personal history of nicotine dependence; Z20.822 Contact with and (suspected) exposure to COVID-19
CPT/HCPCS: 36415; 36600; 51702; 71045; 71275; 80053; 80306; 81000; 82010; 82550; 82553; 82805; 82947; 83036; 83605; 83735; 83874; 83880; 84100; 84484; 85007; 85025; 85027; 85379; 85610; 85652; 85730; 86141; 87040; 87081; 87088; 87636; 93005; 93041; 94640; 94660; 94760; 99291

== ENCOUNTER → 2022-10-02 | Outpatient (CLI) | payer MEDICARE, OTHER ==
[~2022-10-02] MED LIST changes: +ALBU18HF2 INH; +GBPN600T PO; +HYDR-3820 PO; +PRED10TA22 PO; +TIOT4MIS3 IH
--- NOTE | 2022-10-02 12:04 | Diagnostic Imaging Report ---
INDICATION: Bilateral 3-D screening mammograms. COMPARISONS: 09/29/2021 and 09/16/2020 There are moderate breast parenchymal densities bilaterally. There is no evidence of new dominant mass or suspicious calcification. Overall, no adverse change is seen. IMPRESSION: Category 1, negative mammograms. Physical examination and annual mammographic follow-up are recommended. ACR BI-RADS Category 1: Negative. Result letter will be mailed to the patient. Note: At least 10% of breast cancer is not imaged by mammography. Dictated by: Dictated on workstation # [id number]
== END ==
LOC: RAD 10:02
PROVIDERS: ATTEND Nurse Practitioner Family
DX: Z12.31 Encounter for screening mammogram for malignant neoplasm of breast (principal)
CPT/HCPCS: 77063; 77067

== ENCOUNTER → 2022-12-11 | Outpatient (CLI) | payer MEDICARE, OTHER ==
--- NOTE | 2022-12-11 12:48 | Diagnostic Imaging Report ---
EXAMINATION: Chest 2 view HISTORY: Cough COMPARISON: 08/08/2022 FINDINGS: The lungs are clear without edema or pneumonia. No pleural effusion or pneumothorax. Heart size is normal. IMPRESSION: 1. Clear lungs. Dictated by: Dictated on workstation # [id number]
== END ==
LOC: RAD 11:30
PROVIDERS: ATTEND Nurse Practitioner Family
DX: J44.9 Chronic obstructive pulmonary disease, unspecified (principal); Z99.81 Dependence on supplemental oxygen
CPT/HCPCS: 71046

== ENCOUNTER 2023-01-04 19:21 | Emergency (ER) | payer MEDICARE, OTHER ==
[~2023-01-04] VITALS: Ht 172 cm; Wt 99.7 kg
[2023-01-04 19:38] VITALS: BP 122/79
[2023-01-04 21:09] LABS: BILIRUBIN,URINE NEGATIVE (NEGATIVE); CLARITY,URINE CLEAR; COLOR,URINE YELLOW; GLUCOSE, URINE (UA) NEGATIVE (NEGATIVE); KETONES,URINE NEGATIVE (NEGATIVE); NITRITE,URINE NEGATIVE (NEGATIVE); PH,URINE 6.5 (5-9); PROTEIN,URINE NEGATIVE (NEGATIVE)
[2023-01-04 21:10] LABS: LEUKOCYTE ESTERASE ,URINE 1+ (NEGATIVE)
[2023-01-04 21:14] LABS: BACTERIA,URINE FEW /HPF; URINE OTHER TRANS EPI 5-10 /HPF
[2023-01-04] MEDS ORDERED: RX-NITROFURANTOIN 100 MG (MACROBID) CAP PPK#2 PO STA (21:27)
[2023-01-04] MEDS ORDERED: HYDROcodone/ACETAMINOPHEN 5 MG/325 MG TABLET PO ONE (21:30)
[2023-01-04] MEDS ORDERED: FURO-125 PO (21:32)
[2023-01-04] MEDS ORDERED: NITR-65 PO (21:32)
--- NOTE | 2023-01-04 21:33 | ED General ---
General Chief Complaint: Lower Extremity Stated Complaint: ANKLES SWOLLEN Nursing Triage Note: PATIENT VERBALIZED AROUND NOON TODAY SHE NOTIED LOWER CALF/ANKLE SWELLING. PATIENT DENIES INCREASED SOB. PATIENT ON OXYGEN DUE TO COPD. (ALESSANDRO CARPENTER) History of Present Illness Date Seen by Provider: Jan 04, 2023 Time Seen by Provider: 19:45 Initial Comments 67-year-old patient reports noted swelling to her ankles that has progressively gotten worse today. She reports occasional edema she is not on a diuretic. She drinks 4 to 6 cups of pop a day and has limited water intake. She is noted to have COPD and wears oxygen as needed. Denies calf pain or history of DVT. Reports dysuria over the last few days. Timing/Duration: 1-2 Days Severity: Mild Associated Systoms: No Chest Pain, No Cough (ALESSANDRO CARPENTER) Allergies and Home Medications Allergies Coded Allergies: morphine (Unverified Adverse Reaction, Mild, RASH, 10/03/18) Patient Home Medication List Home Medication List Reviewed: Yes (ALESSANDRO CARPENTER) Albuterol Sulfate (Ventolin Hfa) 90 Mcg Hfa.aer.ad, 2 PUFF INH Q4H PRN for SHORTNESS OF BREATH, (Reported) Entered as Reported by: BASILIA NICE on 08/07/22 1124 Alprazolam (Alprazolam) 1 Mg Tablet, 1 MG PO Q8H, (Reported) Entered as Reported by: MY UREÑA on 10/04/18 1051 Cefdinir (Cefdinir) 300 Mg Capsule, 300 MG PO BID Prescribed by: JOHN BURGOS on 08/09/22 1029 Celecoxib (Celecoxib) 100 Mg Capsule, 100 MG PO BID, (Reported) Entered as Reported by: MY UREÑA on 10/04/18 1051 Duloxetine HCl (Duloxetine HCl) 60 Mg Capsule.dr, 60 MG PO DAILY, (Reported) Entered as Reported by: JENN CHRISTY on 10/26/16 0951 Furosemide (Lasix) 20 Mg Tablet, 20 MG PO DAILY Prescribed by: ALESSANDRO CARPENTER on 01/04/23 2132 Gabapentin (Gabapentin) 600 Mg Tablet, 600 MG PO TID PRN for NEUROPATHIC PAIN, (Reported) Entered as Reported by: BASILIA NICE on 08/07/22 1124 Hydrocodone/Acetaminophen (Hydrocodone-Acetamin 10-325 mg) 10 Mg-325 Mg Tablet, 1 EA PO Q4H PRN for PAIN-MODERATE (5-7), (Reported) Entered as Reported by: BASILIA NICE on 08/07/22 1124 Nitrofurantoin Monohyd/M-Cryst (Macrobid 100 mg Capsule) 100 Mg Capsule, 1 TAB PO BID Prescribed by: ALESSANDRO CARPENTER on 01/04/232131 Prednisone (Prednisone) 10 Mg Tab.ds.pk, 10 MG PO DAILY Prescribed by: JOHN BURGOS on 08/09/22 1029 Tiotropium Br/Olodaterol HCl (Stiolto Respimat Inhal [place]) 2.5 Mcg-2.5 Mcg/Actuation Mist.inhal, 2 PUFF IH BID, (Reported) Entered as Reported by: BASILIA NICE on 08/07/22 112 Review of Systems Review of Systems Constitutional: no symptoms reported, see HPI Respiratory: no symptoms reported, see HPI Cardiovascular: see HPI, edema Musculoskeletal: back pain (Chronic) (ALESSANDRO CARPENTER) All Other Systems Reviewed Negative Unless Noted: Yes (ALESSANDRO CARPENTER) Past Bnpvnbl-Reisqk-Ozmyqf Hx Immunizations Up To Date Tetanus Booster (TDap): Less than 5yrs First/Initial COVID19 Vaccinat: YES Second COVID19 Vaccination Rohan: YES (ALESSANDRO CARPENTER) Seasonal Allergies Seasonal Allergies: No (ALESSANDRO CARPENTER) Past Medical History Surgery/Hospitalization HX: COPD Orthopedic Respiratory: Yes (HOME O2 AT 4L/NC) COPD Cardiac: No Neurological: No Reproductive Disorders: No Female Reproductive Disorders: Denies [employer] History: Menopausal Genitourinary: No Gastrointestinal: No Musculoskeletal: Yes Arthritis, Chronic Back Pain Endocrine: No HEENT: No Loss of Vision: Bilateral Hearing Impairment: Denies Cancer: No Psychosocial: No Anxiety Integumentary: No Blood Disorders: No Adverse Reaction/Blood Tranf: No (ALESSANDRO CARPENTER) Family Medical History Reviewed Nursing Family Hx (ALESSANDRO CARPENTER) Breas 19 MOTHER Congenital heart disease 19 FATHER 19 MOTHER Hypertension 19 FATHER 19 MOTHER Myocardial infarction 19 MOTHER Prostate cancer 19 FATHER Physical Exam Vital Signs Vital Signs - First Documented 01/04/23 01/04/23 19:38 19:43 Pulse 88 Resp 18 B/P (MAP) 122/79 (93) Pulse Ox 97 O2 Delivery Room Air O2 Flow Rate 4.00 (MARCIANO BLANCHARD MD) Vital Signs Capillary Refill : Less Than 3 Seconds (ALESSANDRO CARPENTER) Height, Weight, BMI Height: 5'8.00" Weight: 244lbs. 6.0oz. 110.265230ab; 33.00 BMI Method:Stated General Appearance: No Apparent Distress, WD/WN Respiratory: Chest Non Tender, Lungs Clear, Normal Breath Sounds Cardiovascular: Regular Rate, Rhythm, No Murmur, Normal Peripheral Pulses Gastrointestinal: Normal Bowel Sounds, Non Tender, Soft Extremity: Normal Capillary Refill, Normal Inspection, Normal Range of Motion, Non Tender, No Calf Tenderness, Pedal Edema (2+) Neurologic/Psychiatric: Alert, Oriented x3, No Motor/Sensory Deficits, Normal Mood/Affect Skin: Normal Color, Warm/Dry (PAULINEALESSANDRO ROHAN) Procedures/Interventions Suture Size: 5-0 (ALESSANDRO CARPENTER) Progress/Results/Core Measures Suspected Sepsis SIRS Temperature: Pulse: 88 Respiratory Rate: 18 Blood Pressure 122 /79 Mean: 93 (ALESSANDRO CARPENTER) Results/Orders Lab Results Laboratory Tests Test 01/04/23 19:59 Range/Units Urine Color YELLOW Urine Clarity CLEAR Urine pH 6.5 5-9 Urine Specific [place] 1.010 L 1.016-1.022 Urine Protein NEGATIVE NEGATIVE Urine Glucose (UA) NEGATIVE NEGATIVE Urine Ketones NEGATIVE NEGATIVE Urine Nitrite NEGATIVE NEGATIVE Urine Bilirubin NEGATIVE NEGATIVE Urine Urobilinogen 1.0 < = 1.0 MG/DL Urine Leukocyte Esterase 1+ H NEGATIVE Urine RBC (Auto) NEGATIVE NEGATIVE Urine RBC NONE /HPF Urine WBC 10-25 H /HPF Urine Squamous Epithelial Cells 10-25 H /HPF Urine Crystals NONE /LPF Urine Bacteria FEW H /HPF Urine Casts NONE /LPF Urine Mucus NEGATIVE /LPF Urine Other TRANS EPI 5-10 /HPF Urine Culture Indicated YES (MARCIANO BLANCHARD MD) Medications Given in ED Current Medications Medications Dose Ordered Sig/Denise Route Start Time Stop Time Status Last Admin Dose Admin Acetaminophen/ Hydrocodone Bitart 1 ea ONCE ONCE PO 01/04/23 21:30 01/04/23 21:31 DC 01/04/23 21:38 1 EA (MARCIANO BLANCHARD MD) Vital Signs/I&O 8/21/23 8/21/23 19:38 19:43 Pulse 88 Resp 18 B/P (MAP) 122/79 (93) Pulse Ox 97 98 O2 Delivery Room Air Nasal Cannula O2 Flow Rate 4.00 (MARCIANO BLANCHARD MD) Vital Signs/I&O Capillary Refill : Less Than 3 Seconds (ALESSANDRO CARPENTER) Blood Pressure Mean: 93 Progress Note : Time: 19:45 Progress Note Patient assessed, she declines wanting a diuretic tonight but will start taking 1 tomorrow. She is requesting hydrocodone for back pain. 2100 patient reports pain has improved. She will start antibiotics for UTI. Discharge instructions and return precautions reviewed with her. (ALESSANDRO CARPENTER) Departure Impression Primary Impression: Chronic back pain Qualified Codes: M54.42 - Lumbago with sciatica, left side; M54.41 - Lumbago with sciatica, right side; G89.29 - Other chronic pain Additional Impressions: UTI (urinary tract infection) Qualified Codes: N30.01 - Acute cystitis with hematuria COPD exacerbation Pedal edema Disposition: HOME, SELF-CARE Condition: Stable Departure-Patient Inst. Decision time for Depature: 21:00 (ALESSANDRO CARPENTER) Referrals: AUGUSTUS MAN MD (PCP/Family) Primary Care Physician Patient Instructions: Dependent Edema (DC), Urinary Tract Infection, Adult (DC) Add. Discharge Instructions: Take antibiotic as prescribed for urinary tract infection. Elevate your ankles higher than your heart. Take the Lasix for the next 4 days as prescribed and follow-up with Dr. Man for labs and to determine if it needs to be continued. I sent enough Lasix for 20 days, but do not take beyond 4 days without discussing with Dr. Man. Continue home medications as prescribed. Drink Water and not POP. Return to the emergency department for new, urgent healthcare needs. All discharge instructions reviewed with patient and/or family. Voiced understan bhavin. Scripts Furosemide (Lasix) 20 Mg Tablet 20 MG PO DAILY for 4 Days, #20 TAB 0 Refills Prov: ALESSANDRO CARPENTER 01/04/23 Nitrofurantoin Monohyd/M-Cryst (Macrobid 100 mg Capsule) 100 Mg Capsule 1 TAB PO BID, #6 CAP 0 Refills Prov: ALESSANDRO CARPENTER 01/04/23 ATTENDING PHYSICIAN NOTE: I was physically present as attending physician in the emergency department during the care of this patient, but I was not directly involved in the decision making or delivery of care for this patient. (MARCIANO BLANCHARD MD) Copy Copies To 1: AUGUSTUS MAN MD, AMY ARNP Jan 04, 2023 21:33 MARCIANO BLANCHARD MD Jan 05, 2023 08:15
== END 2023-01-04 21:45 | disposition home or self-care (01) ==
LOC: EDUNIT# 19:21 → ER 19:23
DX: J44.9 Chronic obstructive pulmonary disease, unspecified (principal); G89.29 Other chronic pain; M54.9 Dorsalgia, unspecified; N39.0 Urinary tract infection, site not specified; R60.9 Edema, unspecified; Z99.81 Dependence on supplemental oxygen; Z88.5 Allergy status to narcotic agent
CPT/HCPCS: 81000; 87088

== ENCOUNTER → 2023-01-21 | Outpatient (CLI) | payer MEDICARE, OTHER ==
[~2023-01-21] MED LIST changes: +FURO-125 PO; +NITR-65 PO
== END ==
LOC: CARD 11:01
PROVIDERS: ATTEND Nurse Practitioner Family
DX: J44.9 Chronic obstructive pulmonary disease, unspecified (principal); I27.81 Cor pulmonale (chronic); R01.1 Cardiac murmur, unspecified; I51.7 Cardiomegaly
CPT/HCPCS: 93306